=== PATIENT | female | born 2000 | race Caucasian/White ===

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

== ENCOUNTER 2018-01-05 01:51 | Emergency (ER) | payer OTHER ==
[2018-01-05 02:01] VITALS: BP 115/77; PULSE 102; RESP 20; TEMP 98.7
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
== END 2018-01-05 02:35 | disposition home or self-care (01) ==
LOC: EC 01:51
DX: R40.2412 Glasgow coma scale score 13-15, at arrival to emergency department (principal); F32.9 Major depressive disorder, single episode, unspecified; Z79.899 Other long term (current) drug therapy; Z88.8 Allergy status to other drugs, medicaments and biological substances; V47.5XXA Car driver injured in collision with fixed or stationary object in traffic accident, initial encounter; Y92.410 Unspecified street and highway as the place of occurrence of the external cause
CPT/HCPCS: 99284

== ENCOUNTER 2018-02-16 05:32 | Emergency (ER) | payer OTHER ==
[2018-02-16] MEDS ORDERED: ONDANSETRON 4 MG/2 ML VIAL IVP STA (06:23)
[2018-02-16] MEDS ORDERED: SODIUM CHLORIDE 0.9% 1,000 ML IV STA (06:23)
--- NOTE | 2018-02-16 06:30 | ED ---
General Adult HPI - General Chief complaint: Nausea/Vomiting/Diarrhea Stated complaint: VOMITING Time Seen by Provider: 02/16/18 05:59 Source: patient Mode of arrival: ambulatory Limitations: no limitations - History of Present Illness Initial comments: 17-year-old female presents to the ER today for evaluation of nausea, vomiting, sore throat and generalized body aches. Patient reports that for approximately 2 months she's been experiencing dysuria and has been taking [id number] Azo almost daily for her symptoms. She was evaluated by her primary care office and was advised that her dysuria was a urinary tract infection secondary to stress and that there is no indication for antibiotics. Patient has not followed up since that time approximately 2 months ago. Patient reports that for the past 3 days she hasn't been having much dysuria and has not taken any Azo. She states that her boyfriend has been having some fevers and body aches and yesterday developed a rash on his hands, feet and a sore throat. He has not sought any medical care. Patient reports that she was feeling okay when she went to bed, she woke up around or a.m. feeling generalized body aches, fever and had some nausea and vomiting. - Related Data Home Medications Medication Instructions Recorded Confirmed Escitalopram [Lexapro] 5 mg PO DAILY 01/05/18 01/05/18 Previous Rx's Medication Instructions Recorded Sulfamethox-Tmp 800-160Mg [Bactrim 1 tab PO Q12HR #14 tab 02/16/18 DS 800-160 mg] Allergies Allergy/AdvReac Type Severity Reaction Status Date / Time cyclobenzaprine HCl AdvReac HYPER Verified 02/16/18 05:45 [From Flexeril] Review of Systems ROS Statement: Those systems with pertinent positive or pertinent negative responses have been documented in the HPI. ROS Other: All systems not noted in ROS Statement are negative. Constitutional: Reports: fever, chills Eyes: Denies: vision change ENT: Reports: throat pain. Denies: ear pain Respiratory: Denies: cough, dyspnea Cardiovascular: Denies: chest pain Endocrine: Reports: fatigue Gastrointestinal: Reports: nausea, vomiting, diarrhea Genitourinary: Reports: dysuria, frequency Musculoskeletal: Denies: back pain Skin: Denies: rash Neurological: Denies: weakness Psychiatric: Denies: anxiety, depression Past Medical History Past Medical History: No Reported History Additional Past Medical History / Comment(s): hyperflexibility of the joints, previous shoulder dislocation History of Any Multi-Drug Resistant Organisms: None Reported Past Surgical History: No Surgical Hx Reported Additional Past Anesthesia/Blood Transfusion Reaction / Comment(s): no hx of blood transfusion Past Psychological History: ADD/ADHD, Bipolar, Depression, PTSD Smoking Status: Never smoker Past Alcohol Use History: None Reported Past Drug Use History: None Reported - Past Family History Mother Family Medical History: Thyroid Disorder Additional Family Medical History / Comment(s): mom with hypothyroid and hypoglycemia Sister(s) Family Medical History: Asthma General Exam Limitations: no limitations General appearance: alert Head exam: Present: atraumatic, normocephalic Eye exam: Present: normal appearance, PERRL ENT exam: Present: normal exam, TM's normal bilaterally Neck exam: Present: normal inspection. Absent: lymphadenopathy Respiratory exam: Present: normal lung sounds bilaterally. Absent: respiratory distress Cardiovascular Exam: Present: tachycardia GI/Abdominal exam: Present: soft. Absent: distended Rectal exam: Present: deferred Extremities exam: Present: full ROM, normal capillary refill. Absent: pedal edema Neurological exam: Present: alert, oriented X3 Psychiatric exam: Present: normal affect, normal mood Skin exam: Present: warm, dry. Absent: cyanosis Course Vital Signs 02/16/18 02/16/18 02/16/18 05:42 06:15 07:03 Temperature 99.5 F 100.6 F H Pulse Rate 111 H 89 Respiratory 18 17 Rate Blood Pressure 114/73 111/65 O2 Sat by Pulse 95 98 Oximetry Medical Decision Making - Medical Decision Making Patient was seen and evaluated, history was obtained from the patient Patient with frequent dysuria, treating Azo for 2 months duration Patient's significant other also apparently symptomatic vors-lfnz-yxu-mouth disease Patient woke this morning with nausea, vomiting, generalized body aches and fever Labs, medications were ordered Urinalysis reveals a significant urinary tract infection, IV Rocephin was ordered Results discussed with the patient who is agreeable to plan for discharge home with by mouth antibiotics I asked the patient if she had any concern for sexually transmitted infections. She denied any concerns. She denies any vaginal discharge. She declined a pelvic exam or sexual transmitted infections testing or treatment. I suspect that the patient's fever and tachycardia are secondary to the urinary tract infection, however she has had contact with a patient with pqqs-rjyb-zwl- mouth so she could also have a secondary viral syndrome though there is no rash to confirm [id number]-[id number]-[id number]-mouth. Patient will be provided a work note for today and was advised that if she develops or if she is contagious for as long as she has a fever or rash. All questions pertaining care were answered best my ability patient was discharged home in stable condition. - Lab Data Result diagrams: 02/16/18 06:10 02/16/18 06:10 Lab Results 02/16/18 02/16/18 02/16/18 Range/Units 06:00 06:00 06:10 WBC 10.8 (4.0-11.0) k/uL RBC 4.63 (3.80-5.40) m/uL Hgb 11.9 (11.4-16.0) gm/dL Hct 36.0 (34.0-46.0) % MCV 77.8 L (80.0-100.0) fL MCH 25.7 (25.0-35.0) pg MCHC 33.0 (31.0-37.0) g/dL RDW 13.2 (11.5-15.5) % Plt Count 265 (150-450) k/uL Neutrophils % 82 % Lymphocytes % 9 % Monocytes % 6 % Eosinophils % 1 % Basophils % 1 % Neutrophils # 8.9 H (1.3-7.7) k/uL Lymphocytes # 1.0 (1.0-4.8) k/uL Monocytes # 0.6 (0-1.0) k/uL Eosinophils # 0.1 (0-0.7) k/uL Basophils # 0.1 (0-0.2) k/uL Sodium (137-145) mmol/L Potassium (3.5-5.1) mmol/L Chloride (98-107) mmol/L Carbon Dioxide (22-30) mmol/L Anion Gap mmol/L BUN (7-17) mg/dL Creatinine (0.52-1.04) mg/dL Est GFR (CKD-EPI)AfAm (>60 ml/min/1.73 sqM) Est GFR (CKD-EPI)NonAf (>60 ml/min/1.73 sqM) Glucose (74-99) mg/dL Calcium (8.4-10.2) mg/dL Total Bilirubin (0.2-1.3) mg/dL AST (14-36) U/L ALT (9-52) U/L Alkaline Phosphatase (38-126) U/L Total Protein (6.3-8.2) g/dL Albumin (3.5-5.0) g/dL Urine Color Yellow Urine Appearance Cloudy H (Clear) Urine pH 5.5 (5.0-8.0) Ur Specific [place] 1.013 (1.001-1.035) Urine Protein Trace H (Negative) Urine Glucose (UA) Negative (Negative) Urine Ketones Negative (Negative) Urine Blood Trace H (Negative) Urine Nitrite Positive H (Negative) Urine Bilirubin Negative (Negative) Urine Urobilinogen <2.0 (<2.0) mg/dL Ur Leukocyte Esterase Large H (Negative) Urine RBC 3 (0-5) /hpf Urine WBC >182 H (0-5) /hpf Urine WBC Clumps Moderate H (None) /hpf Ur Squamous Epith Cells 1 (0-4) /hpf Urine Bacteria Many H (None) /hpf Urine Mucus Rare H (None) /hpf Urine HCG, Qual Not Detected (Not Detectd) 02/16/18 Range/Units 06:10 WBC (4.0-11.0) k/uL RBC (3.80-5.40) m/uL Hgb (11.4-16.0) gm/dL Hct (34.0-46.0) % MCV (80.0-100.0) fL MCH (25.0-35.0) pg MCHC (31.0-37.0) g/dL RDW (11.5-15.5) % Plt Count (150-450) k/uL Neutrophils % % Lymphocytes % % Monocytes % % Eosinophils % % Basophils % % Neutrophils # (1.3-7.7) k/uL Lymphocytes # (1.0-4.8) k/uL Monocytes # (0-1.0) k/uL Eosinophils # (0-0.7) k/uL Basophils # (0-0.2) k/uL Sodium 141 (137-145) mmol/L Potassium 3.9 (3.5-5.1) mmol/L Chloride 110 H (98-107) mmol/L Carbon Dioxide 21 L (22-30) mmol/L Anion Gap 10 mmol/L BUN 8 (7-17) mg/dL Creatinine 0.73 (0.52-1.04) mg/dL Est GFR (CKD-EPI)AfAm >90 (>60 ml/min/1.73 sqM) Est GFR (CKD-EPI)NonAf >90 (>60 ml/min/1.73 sqM) Glucose 97 (74-99) mg/dL Calcium 9.4 (8.4-10.2) mg/dL Total Bilirubin 0.8 (0.2-1.3) mg/dL AST 26 (14-36) U/L ALT 38 (9-52) U/L Alkaline Phosphatase 78 (38-126) U/L Total Protein 7.5 (6.3-8.2) g/dL Albumin 4.4 (3.5-5.0) g/dL Urine Color Urine Appearance (Clear) Urine pH (5.0-8.0) Ur Specific [place] (1.001-1.035) Urine Protein (Negative) Urine Glucose (UA) (Negative) Urine Ketones (Negative) Urine Blood (Negative) Urine Nitrite (Negative) Urine Bilirubin (Negative) Urine Urobilinogen (<2.0) mg/dL Ur Leukocyte Esterase (Negative) Urine RBC (0-5) /hpf Urine WBC (0-5) /hpf Urine WBC Clumps (None) /hpf Ur Squamous Epith Cells (0-4) /hpf Urine Bacteria (None) /hpf Urine Mucus (None) /hpf Urine HCG, Qual (Not Detectd) Disposition Clinical Impression: UTI (urinary tract infection) Disposition: HOME SELF-CARE Condition: Good Instructions: Urinary Tract Infection in Women (ED), Acute Nausea and Vomiting (ED) Prescriptions: Sulfamethox-Tmp 800-160Mg [Bactrim DS 800-160 mg] 1 tab PO Q12HR #14 tab Is patient prescribed a controlled substance at d/c from ED?: No Referrals: Kevin Bautista MD [Primary Care Provider] - 1-2 days Time of Disposition: 07:27
[2018-02-16 06:35] LABS: Appearance,Urine Cloudy (Clear); Bacteria,Urine Many /hpf; Bilirubin,Urine Negative (Negative); Blood,Urine Trace (Negative); Color,Urine Yellow; Glucose,Urine (UA) Negative (Negative); Ketones,Urine Negative (Negative); Leukocyte Esterase,Urine Large (Negative); Mucus,Urine Rare /hpf; Nitrite,Urine Positive (Negative); PH, Urine 5.5 (5.0-8.0); Protein,Urine Trace (Negative); RBC,Urine 3 /hpf (0-5); Specific Gravity,Urine 1.013 (1.001-1.035); Squamous Epithelial Cell,Urine 1 /hpf (0-4); Urobilinogen,Urine <2.0 mg/dL (<2.0); WBC,Urine >182 /hpf (0-5)
[2018-02-16 06:36] LABS: Basophils # (A) 0.1 k/uL (0-0.2); Basophils % (A) 1 %; Eosinophils # (A) 0.1 k/uL (0-0.7); Eosinophils % (A) 1 %; HGB 11.9 gm/dL (11.4-16.0); Lymphocytes % (A) 9 %; MCH 25.7 pg (25.0-35.0); MCV 77.8 fL (80.0-100.0); Mean Platelet Volume 7.4; Monocytes # (A) 0.6 k/uL (0-1.0); Monocytes % (A) 6 %; Neutrophils # (A) 8.9 k/uL (1.3-7.7); Neutrophils % (A) 82 %; Platelet Count 265 k/uL (150-450); RBC 4.63 m/uL (3.80-5.40); RDW 13.2 % (11.5-15.5); WBC 10.8 k/uL (4.0-11.0)
[2018-02-16 06:47] LABS: ALT 38 U/L (9-52); AST 26 U/L (14-36); Albumin 4.4 g/dL (3.5-5.0); Alkaline Phosphatase 78 U/L (38-126); Anion Gap 10 mmol/L; Blood Urea Nitrogen 8 mg/dL (7-17); Calcium 9.4 mg/dL (8.4-10.2); Carbon Dioxide 21 mmol/L (22-30); Chloride 110 mmol/L (98-107); Glucose 97 mg/dL (74-99); Potassium 3.9 mmol/L (3.5-5.1); Sodium 141 mmol/L (137-145); Total Bilirubin 0.8 mg/dL (0.2-1.3); Total Protein 7.5 g/dL (6.3-8.2)
[2018-02-16 07:04] VITALS: PULSE 89
[2018-02-16] MEDS ORDERED: cefTRIAXone IN SWFI 1,000 MG/10 ML SYRINGE IVP STA (07:25)
[2018-02-16 08:07] VITALS: BP 104/59; RESP 16; TEMP 98.9
== END 2018-02-16 08:06 | disposition home or self-care (01) ==
LOC: EC 05:32
DX: N39.0 Urinary tract infection, site not specified (principal); R11.2 Nausea with vomiting, unspecified; F31.9 Bipolar disorder, unspecified; F90.9 Attention-deficit hyperactivity disorder, unspecified type; F43.10 Post-traumatic stress disorder, unspecified; Z79.899 Other long term (current) drug therapy; Z88.8 Allergy status to other drugs, medicaments and biological substances
CPT/HCPCS: 36415; 80053; 85025; 81001; 81025; 87086; 99284; 96374; 96375; 96361; J2405; J0696

== ENCOUNTER 2018-06-11 20:25 | Emergency (ER) | payer OTHER ==
[2018-06-11 21:10] VITALS: BP 117/77; PULSE 81; RESP 20; TEMP 98.4
[2018-06-11] MEDS ORDERED: KETOROLAC 30 MG/ML 1 ML VIAL IM STA (21:22)
--- NOTE | 2018-06-11 21:26 | ED ---
General Adult HPI - General Chief complaint: Back Pain/Injury Stated complaint: Back injury/neck pain [facility] Time Seen by Provider: 06/11/18 21:12 Source: patient, family, RN notes reviewed, old records reviewed Mode of arrival: ambulatory Limitations: no limitations - History of Present Illness Initial comments: 18-year-old female presenting for evaluation of low back pain. Patient has history of low back pain. She had an episode approximately one year ago where she developed low back pain with twisting injury. She was evaluated for this at an outside hospital. At that time she states that she will trouble moving her legs and they noted decreased rectal tone. She was sent to outside hospital for MRI and neurosurgical evaluation. She states that they did not do any surgery. She regained complete function of her legs. She reports pain but no trouble moving her legs today. She reports some pain shooting down both of her legs. No saddle anesthesia. No loss of bowel or bladder. No fever or chills. - Related Data Home Medications Medication Instructions Recorded Confirmed Escitalopram [Lexapro] 10 mg PO DAILY 06/11/18 06/11/18 Previous Rx's Medication Instructions Recorded Ibuprofen [Motrin] 600 mg PO Q8HR PRN #24 tab 06/11/18 Allergies Allergy/AdvReac Type Severity Reaction Status Date / Time cyclobenzaprine HCl AdvReac HYPER Verified 06/11/18 21:10 [From Flexeril] Review of Systems ROS Statement: Those systems with pertinent positive or pertinent negative responses have been documented in the HPI. ROS Other: All systems not noted in ROS Statement are negative. Past Medical History Past Medical History: No Reported History Additional Past Medical History / Comment(s): hyperflexibility of the joints, previous shoulder dislocation History of Any Multi-Drug Resistant Organisms: None Reported Past Surgical History: No Surgical Hx Reported Additional Past Anesthesia/Blood Transfusion Reaction / Comment(s): no hx of blood transfusion Past Psychological History: ADD/ADHD, Bipolar, Depression, PTSD Smoking Status: Never smoker Past Alcohol Use History: None Reported Past Drug Use History: None Reported - Past Family History Mother Family Medical History: Thyroid Disorder Additional Family Medical History / Comment(s): mom with hypothyroid and hypoglycemia Sister(s) Family Medical History: Asthma General Exam Limitations: no limitations General appearance: alert, in no apparent distress, appears intoxicated Head exam: Present: atraumatic, normocephalic Eye exam: Present: normal appearance, PERRL ENT exam: Present: normal exam Neck exam: Present: normal inspection, full ROM. Absent: tenderness, meningismus Respiratory exam: Present: normal lung sounds bilaterally. Absent: respiratory distress, wheezes Cardiovascular Exam: Present: regular rate, normal rhythm GI/Abdominal exam: Present: soft. Absent: distended, tenderness, guarding Rectal exam: Present: normal inspection, normal rectal tone Extremities exam: Present: normal inspection, normal capillary refill. Absent: pedal edema, calf tenderness Back exam: Present: normal inspection, full ROM, paraspinal tenderness, vertebral tenderness (Diaphoresis or tenderness. No associated spasm and tenderness of the paraspinal muscles.) Neurological exam: Present: alert, oriented X3, CN II-XII intact, normal gait, reflexes normal. Absent: motor sensory deficit Expanded Motor strength exam: RUE: 5, LUE: 5, RLE: 5, LLE: 5 DTR: Patellar (R): 2+, Patellar (L): 2+ Psychiatric exam: Present: normal affect, normal mood Skin exam: Present: warm, dry, intact. Absent: cyanosis, diaphoretic Course Vital Signs 06/11/18 21:04 Temperature 98.4 F Pulse Rate 81 Respiratory 20 Rate Blood Pressure 117/77 O2 Sat by Pulse 100 Oximetry Medical Decision Making - Medical Decision Making 18-year-old with back pain associated with movement. This was twisting injury. She doesn't have some midline tenderness on exam proximally L3-L4. Primarily paraspinal tenderness and spasm on exam. No alarming features on history or exam however the patient had previous injury to her back that required MRI and neurosurgical evaluation ultimately she had no surgery and required no intervention. At that time patient did have decreased rectal tone. The rectal tone is normal today, no saddle anesthesia, rales or residual was 0. Urinalysis is negative and she is able to urinate on command. She is given Toradol intramuscularly. X-rays obtained, there is no acute fracture dislocation in the lumbar spine - Lab Data Lab Results 06/11/18 06/11/18 Range/Units 21:29 21:29 Urine Color Yellow Urine Appearance Clear (Clear) Urine pH 5.5 (5.0-8.0) Ur Specific [place] 1.016 (1.001-1.035) Urine Protein Negative (Negative) Urine Glucose (UA) Negative (Negative) Urine Ketones Negative (Negative) Urine Blood Negative (Negative) Urine Nitrite Negative (Negative) Urine Bilirubin Negative (Negative) Urine Urobilinogen <2.0 (<2.0) mg/dL Ur Leukocyte Esterase Negative (Negative) Urine HCG, Qual Not Detected (Not Detectd) Disposition Clinical Impression: Mechanical back pain, Strain of lumbar region Disposition: HOME SELF-CARE Condition: Good Instructions: Acute Low Back Pain (ED) Prescriptions: Ibuprofen [Motrin] 600 mg PO Q8HR PRN #24 tab PRN Reason: Pain Is patient prescribed a controlled substance at d/c from ED?: No Referrals: Kevin Bautista MD [Primary Care Provider] - 1-2 days Time of Disposition: 22:27
[2018-06-11 21:49] LABS: Appearance,Urine Clear (Clear); Bilirubin,Urine Negative (Negative); Blood,Urine Negative (Negative); Color,Urine Yellow; Glucose,Urine (UA) Negative (Negative); Ketones,Urine Negative (Negative); Leukocyte Esterase,Urine Negative (Negative); Nitrite,Urine Negative (Negative); PH, Urine 5.5 (5.0-8.0); Protein,Urine Negative (Negative); Specific Gravity,Urine 1.016 (1.001-1.035); Urobilinogen,Urine <2.0 mg/dL (<2.0)
--- NOTE | 2018-06-11 22:31 | XR ---
EXAMINATION TYPE: XR lumbar spine 2 or 3V DATE OF EXAM: 06/11/2018 COMPARISON: NONE HISTORY: Low back pain TECHNIQUE: 3 views FINDINGS: Vertebra have normal spacing and alignment. Posterior elements are intact. Sacroiliac joint s appear normal. IMPRESSION: Normal lumbar spine.
== END 2018-06-11 22:42 | disposition home or self-care (01) ==
LOC: EC 20:25
DX: S39.012A Strain of muscle, fascia and tendon of lower back, initial encounter (principal); F32.9 Major depressive disorder, single episode, unspecified; F43.10 Post-traumatic stress disorder, unspecified; Z79.899 Other long term (current) drug therapy; Z88.8 Allergy status to other drugs, medicaments and biological substances; X50.1XXA Overexertion from prolonged static or awkward postures, initial encounter; Y92.69 Other specified industrial and construction area as the place of occurrence of the external cause; Y99.0 Civilian activity done for income or pay
CPT/HCPCS: 81003; 81025; 72100; 99284; 96372; J1885

== ENCOUNTER 2018-10-05 11:11 | Emergency (ER) | payer OTHER ==
[2018-10-05] MEDS ORDERED: ONDANSETRON ODT 8 MG TAB.RAPDIS PO STA (11:25)
[2018-10-05] MEDS ORDERED: diphenhydrAMINE 50 MG/ML 1 ML VIAL IVP STA (11:25)
[2018-10-05] MEDS ORDERED: SODIUM CHLORIDE 0.9% 500 ML 500 ML IV STA (11:25)
[2018-10-05] MEDS ORDERED: SODIUM CHLORIDE 0.9% 1,000 ML IV STA (11:25)
--- NOTE | 2018-10-05 11:41 | ED ---
Nausea/Vomiting/Diarrhea HPI - General Chief complaint: Nausea/Vomiting/Diarrhea Stated complaint: Abd Pain Time Seen by Provider: 10/05/18 11:21 Source: patient, RN notes reviewed Mode of arrival: ambulatory Limitations: no limitations - History of Present Illness Initial comments: This is a 18-year-old female presents emergency Department chief complaint of nausea vomiting diarrhea. Patient states started abruptly around midnight. Patient states has been persistent every hour. Patient denies any known fever or chills. Patient denies any chest pain, shortness breath, headache or dizziness. Patient states that she's had no contacts with some symptoms denies any chance no dysuria no hematuria. - Related Data Home Medications Medication Instructions Recorded Confirmed Ascorbic Acid [Vitamin C] 500 mg PO DAILY 10/05/18 10/05/18 Biotin 5 mg PO DAILY 10/05/18 10/05/18 Venlafaxine HCl ER [Effexor XR] 75 mg PO DAILY 10/05/18 10/05/18 Previous Rx's Medication Instructions Recorded Ondansetron Odt [Zofran Odt] 4 mg PO Q8HR PRN #10 tab 10/05/18 Allergies Allergy/AdvReac Type Severity Reaction Status Date / Time latex Allergy Rash/Hives Verified 10/05/18 11:58 cyclobenzaprine HCl AdvReac HYPER Verified 10/05/18 11:44 [From Flexeril] Review of Systems ROS Statement: Those systems with pertinent positive or pertinent negative responses have been documented in the HPI. ROS Other: All systems not noted in ROS Statement are negative. Past Medical History Past Medical History: No Reported History Additional Past Medical History / Comment(s): hyperflexibility of the joints, pr evious shoulder dislocation History of Any Multi-Drug Resistant Organisms: None Reported Past Surgical History: No Surgical Hx Reported Additional Past Anesthesia/Blood Transfusion Reaction / Comment(s): no hx of blood transfusion Past Psychological History: ADD/ADHD, Bipolar, Depression, PTSD Smoking Status: Never smoker Past Alcohol Use History: Occasional Past Drug Use History: None Reported - Past Family History Mother Family Medical History: Thyroid Disorder Additional Family Medical History / Comment(s): mom with hypothyroid and hyp oglycemia Sister(s) Family Medical History: Asthma General Exam Limitations: no limitations General appearance: alert, in no apparent distress Head exam: Present: atraumatic, normocephalic, normal inspection Eye exam: Present: normal appearance, PERRL, EOMI. Absent: scleral icterus, conjunctival injection, periorbital swelling ENT exam: Present: normal exam, mucous membranes moist Neck exam: Present: normal inspection. Absent: tenderness, meningismus, lymphadenopathy Respiratory exam: Present: normal lung sounds bilaterally. Absent: respiratory distress, wheezes, rales, rhonchi, stridor Cardiovascular Exam: Present: normal rhythm, tachycardia, normal heart sounds. Absent: systolic murmur, diastolic murmur, rubs, gallop, clicks GI/Abdominal exam: Present: soft, tenderness (Mild diffuse), normal bowel sounds. Absent: distended, guarding, rebound, rigid Back exam: Absent: CVA tenderness (R), CVA tenderness (L) Skin exam: Present: warm, dry, intact, normal color. Absent: rash Course Vital Signs 10/05/18 10/05/18 11:13 12:12 Temperature 95 F L 100.1 F H Pulse Rate 118 H Respiratory 20 Rate Blood Pressure 108/75 O2 Sat by Pulse 99 Oximetry Medical Decision Making - Medical Decision Making 18-year-old female was on for nausea vomiting diarrhea. Patient is improved after IV fluids and antiemetics. Patient has no localized abdominal pain. Patient updated on results. Patient comfortable with discharge. - Lab Data Result diagrams: 10/05/18 11:45 10/05/18 11:45 Lab Results 10/05/18 10/05/18 10/05/18 Range/Units 11:45 11:45 12:25 WBC 14.6 H (4.0-11.0) k/uL RBC 5.35 (3.80-5.40) m/uL Hgb 14.0 (11.4-16.0) gm/dL Hct 41.2 (34.0-46.0) % MCV 76.9 L (80.0-100.0) fL MCH 26.2 (25.0-35.0) pg MCHC 34.1 (31.0-37.0) g/dL RDW 13.9 (11.5-15.5) % Plt Count 300 (150-450) k/uL Neutrophils % 94 % Lymphocytes % 2 % Monocytes % 2 % Eosinophils % 1 % Basophils % 0 % Neutrophils # 13.7 H (1.3-7.7) k/uL Lymphocytes # 0.4 L (1.0-4.8) k/uL Monocytes # 0.3 (0-1.0) k/uL Eosinophils # 0.1 (0-0.7) k/uL Basophils # 0.0 (0-0.2) k/uL Sodium 140 (137-145) mmol/L Potassium 4.2 (3.5-5.1) mmol/L Chloride 107 (98-107) mmol/L Carbon Dioxide 21 L (22-30) mmol/L Anion Gap 12 mmol/L BUN 15 (7-17) mg/dL Creatinine 0.44 L (0.52-1.04) mg/dL Est GFR (CKD-EPI)AfAm >90 (>60 ml/min/1.73 sqM) Est GFR (CKD-EPI)NonAf >90 (>60 ml/min/1.73 sqM) Glucose 126 H (74-99) mg/dL Calcium 9.9 (8.4-10.2) mg/dL Total Bilirubin 1.0 (0.2-1.3) mg/dL AST 25 (14-36) U/L ALT 39 (9-52) U/L Alkaline Phosphatase 84 (38-126) U/L Total Protein 7.7 (6.3-8.2) g/dL Albumin 4.6 (3.5-5.0) g/dL Lipase 48 (23-300) U/L Urine Color Yellow Urine Appearance Cloudy H (Clear) Urine pH 7.0 (5.0-8.0) Ur Specific [place] 1.022 (1.001-1.035) Urine Protein Trace H (Negative) Urine Glucose (UA) Negative (Negative) Urine Ketones 1+ H (Negative) Urine Blood Negative (Negative) Urine Nitrite Negative (Negative) Urine Bilirubin Negative (Negative) Urine Urobilinogen <2.0 (<2.0) mg/dL Ur Leukocyte Esterase Large H (Negative) Urine RBC 1 (0-5) /hpf Urine WBC 8 H (0-5) /hpf Ur Squamous Epith Cells 4 (0-4) /hpf Urine Bacteria Rare H (None) /hpf Urine Mucus Occasional H (None) /hpf Urine HCG, Qual (Not Detectd) 10/05/18 Range/Units 12:25 WBC (4.0-11.0) k/uL RBC (3.80-5.40) m/uL Hgb (11.4-16.0) gm/dL Hct (34.0-46.0) % MCV (80.0-100.0) fL MCH (25.0-35.0) pg MCHC (31.0-37.0) g/dL RDW (11.5-15.5) % Plt Count (150-450) k/uL Neutrophils % % Lymphocytes % % Monocytes % % Eosinophils % % Basophils % % Neutrophils # (1.3-7.7) k/uL Lymphocytes # (1.0-4.8) k/uL Monocytes # (0-1.0) k/uL Eosinophils # (0-0.7) k/uL Basophils # (0-0.2) k/uL Sodium (137-145) mmol/L Potassium (3.5-5.1) mmol/L Chloride (98-107) mmol/L Carbon Dioxide (22-30) mmol/L Anion Gap mmol/L BUN (7-17) mg/dL Creatinine (0.52-1.04) mg/dL Est GFR (CKD-EPI)AfAm (>60 ml/min/1.73 sqM) Est GFR (CKD-EPI)NonAf (>60 ml/min/1.73 sqM) Glucose (74-99) mg/dL Calcium (8.4-10.2) mg/dL Total Bilirubin (0.2-1.3) mg/dL AST (14-36) U/L ALT (9-52) U/L Alkaline Phosphatase (38-126) U/L Total Protein (6.3-8.2) g/dL Albumin (3.5-5.0) g/dL Lipase (23-300) U/L Urine Color Urine Appearance (Clear) Urine pH (5.0-8.0) Ur Specific [place] (1.001-1.035) Urine Protein (Negative) Urine Glucose (UA) (Negative) Urine Ketones (Negative) Urine Blood (Negative) Urine Nitrite (Negative) Urine Bilirubin (Negative) Urine Urobilinogen (<2.0) mg/dL Ur Leukocyte Esterase (Negative) Urine RBC (0-5) /hpf Urine WBC (0-5) /hpf Ur Squamous Epith Cells (0-4) /hpf Urine Bacteria (None) /hpf Urine Mucus (None) /hpf Urine HCG, Qual Not Detected (Not Detectd) Disposition Clinical Impression: Gastroenteritis Disposition: HOME SELF-CARE Condition: Stable Instructions (If sedation given, give patient instructions): Gastroenteritis (ED) Additional Instructions: Please return to the Emergency Department if symptoms worsen or any other concerns. Prescriptions: Ondansetron Odt [Zofran Odt] 4 mg PO Q8HR PRN #10 tab PRN Reason: Nausea Is patient prescribed a controlled substance at d/c from ED?: No Referrals: Cheryle Banerjee MD [Primary Care Provider] - 1-2 days Time of Disposition: 13:00
[2018-10-05 12:03] LABS: Basophils % (A) 0 %; Eosinophils # (A) 0.1 k/uL (0-0.7); Eosinophils % (A) 1 %; HCT 41.2 % (34.0-46.0); Lymphocytes # (A) 0.4 k/uL (1.0-4.8); Lymphocytes % (A) 2 %; MCH 26.2 pg (25.0-35.0); MCHC 34.1 g/dL (31.0-37.0); MCV 76.9 fL (80.0-100.0); Mean Platelet Volume 7.9; Monocytes # (A) 0.3 k/uL (0-1.0); Monocytes % (A) 2 %; Neutrophils # (A) 13.7 k/uL (1.3-7.7); Neutrophils % (A) 94 %; Platelet Count 300 k/uL (150-450); RBC 5.35 m/uL (3.80-5.40); RDW 13.9 % (11.5-15.5); WBC 14.6 k/uL (4.0-11.0)
[2018-10-05] MEDS ORDERED: KETOROLAC 30 MG/ML 1 ML VIAL IVP STA (12:10)
[2018-10-05 12:16] LABS: ALT 39 U/L (9-52); AST 25 U/L (14-36); Albumin 4.6 g/dL (3.5-5.0); Alkaline Phosphatase 84 U/L (38-126); Anion Gap 12 mmol/L; Blood Urea Nitrogen 15 mg/dL (7-17); Calcium 9.9 mg/dL (8.4-10.2); Carbon Dioxide 21 mmol/L (22-30); Chloride 107 mmol/L (98-107); Glucose 126 mg/dL (74-99); Lipase 48 U/L (23-300); Potassium 4.2 mmol/L (3.5-5.1); Sodium 140 mmol/L (137-145); Total Protein 7.7 g/dL (6.3-8.2)
[2018-10-05 12:45] LABS: Appearance,Urine Cloudy (Clear); Bacteria,Urine Rare /hpf; Bilirubin,Urine Negative (Negative); Blood,Urine Negative (Negative); Color,Urine Yellow; Glucose,Urine (UA) Negative (Negative); Ketones,Urine 1+ (Negative); Leukocyte Esterase,Urine Large (Negative); Mucus,Urine Occasional /hpf; Nitrite,Urine Negative (Negative); Protein,Urine Trace (Negative); RBC,Urine 1 /hpf (0-5); Specific Gravity,Urine 1.022 (1.001-1.035); Squamous Epithelial Cell,Urine 4 /hpf (0-4); Urobilinogen,Urine <2.0 mg/dL (<2.0); WBC,Urine 8 /hpf (0-5)
[2018-10-05 13:27] VITALS: BP 124/67; PULSE 89; RESP 16; TEMP 99.9
== END 2018-10-05 13:26 | disposition home or self-care (01) ==
LOC: EC 11:11
DX: K52.9 Noninfective gastroenteritis and colitis, unspecified (principal); F31.9 Bipolar disorder, unspecified; F90.9 Attention-deficit hyperactivity disorder, unspecified type; F43.10 Post-traumatic stress disorder, unspecified; Z79.899 Other long term (current) drug therapy; Z88.8 Allergy status to other drugs, medicaments and biological substances; Z91.040 Latex allergy status
CPT/HCPCS: 36415; 80053; 83690; 85025; 81001; 81025; 99284; 96374; 96375; 96361 ×2; J1200; J1885

== ENCOUNTER 2018-10-15 18:08 | Emergency (ER) | payer OTHER ==
[2018-10-15 18:14] VITALS: RESP 18
[2018-10-15 18:42] LABS: Basophils # (A) 0.1 k/uL (0-0.2); Basophils % (A) 1 %; Eosinophils # (A) 0.2 k/uL (0-0.7); Eosinophils % (A) 2 %; HCT 42.8 % (34.0-46.0); HGB 14.2 gm/dL (11.4-16.0); Lymphocytes # (A) 2.8 k/uL (1.0-4.8); Lymphocytes % (A) 27 %; MCHC 33.2 g/dL (31.0-37.0); MCV 78.2 fL (80.0-100.0); Mean Platelet Volume 7.3; Monocytes # (A) 0.4 k/uL (0-1.0); Monocytes % (A) 4 %; Neutrophils # (A) 6.7 k/uL (1.3-7.7); Neutrophils % (A) 66 %; Platelet Count 322 k/uL (150-450); RBC 5.47 m/uL (3.80-5.40); RDW 13.1 % (11.5-15.5); WBC 10.1 k/uL (4.0-11.0)
[2018-10-15] MEDS ORDERED: SODIUM CHLORIDE 0.9% 1,000 ML IV ONE (18:47)
[2018-10-15 18:52] LABS: ALT 46 U/L (9-52); AST 27 U/L (14-36); Albumin 4.8 g/dL (3.5-5.0); Alkaline Phosphatase 88 U/L (38-126); Amylase 101 U/L (30-110); Anion Gap 11 mmol/L; Blood Urea Nitrogen 9 mg/dL (7-17); Calcium 9.7 mg/dL (8.4-10.2); Carbon Dioxide 24 mmol/L (22-30); Chloride 105 mmol/L (98-107); Glucose 101 mg/dL (74-99); Lipase 88 U/L (23-300); Potassium 3.9 mmol/L (3.5-5.1); Sodium 140 mmol/L (137-145); Total Bilirubin 0.5 mg/dL (0.2-1.3); Total Protein 7.8 g/dL (6.3-8.2)
--- NOTE | 2018-10-15 19:20 | ED ---
Abdominal Pain HPI - General Chief Complaint: Abdominal Pain Stated Complaint: abd pain Time Seen by Provider: 10/15/18 18:16 Source: patient Mode of arrival: ambulatory Limitations: no limitations - History of Present Illness Initial Comments: 18-year-old female presents today for chief complaint of right lower abdominal pain. Patient states that about 10 days ago she had nausea vomiting diarrhea. She states she had midline abdominal pain. At this time she states it subsided she states she has no longer had vomiting or diarrhea. Patient states that today she began experiencing right lower quadrant tenderness. She states she went to her primary care provider who recommended coming to the emergency room for rule out appendicitis. Patient states that she has increasing pain with pushing on the area patient denies any other alleviating or aggravating factors. She describes the pain as sharp coming and going in intensity. She denies radiation. Patient denies . Patient states she did begin bleeding vaginally today she states she started her menses and has not had a period since is 2014. Patient denies is being lower pelvic pain. she denies dysuria urgency frequency or vaginal discharge. Pt denies . Upon arrival patient appears well remaining review of system negative, patient denies any recent fever, chills, shortness of breath, chest pain, back pain, nausea or vomiting, numbness or tingling, dysuria or hematuria, constipation or diarrhea, headaches or visual changes, or any other complaints. - Related Data Home Medications Medication Instructions Recorded Confirmed Ascorbic Acid [Vitamin C] 500 mg PO DAILY 10/05/18 10/05/18 Biotin 5 mg PO DAILY 10/05/18 10/05/18 Venlafaxine HCl ER [Effexor XR] 75 mg PO DAILY 10/05/18 10/05/18 Previous Rx's Medication Instructions Recorded Ondansetron Odt [Zofran Odt] 4 mg PO Q8HR PRN #10 tab 10/05/18 Allergies Allergy/AdvReac Type Severity Reaction Status Date / Time latex Allergy Rash/Hives Verified 10/15/18 18:14 cyclobenzaprine HCl AdvReac HYPER Verified 10/15/18 18:14 [From Flexeril] Review of Systems ROS Statement: Those systems with pertinent positive or pertinent negative responses have been documented in the HPI. ROS Other: All systems not noted in ROS Statement are negative. Past Medical History Past Medical History: No Reported History Additional Past Medical History / Comment(s): hyperflexibility of the joints, previous shoulder dislocation History of Any Multi-Drug Resistant Organisms: None Reported Past Surgical History: No Surgical Hx Reported Additional Past Anesthesia/Blood Transfusion Reaction / Comment(s): no hx of blood transfusion Past Psychological History: ADD/ADHD, Bipolar, Depression, PTSD Smoking Status: Never smoker Past Alcohol Use History: Occasional Past Drug Use History: None Reported - Past Family History Mother Family Medical History: Thyroid Disorder Additional Family Medical History / Comment(s): mom with hypothyroid and hypoglycemia Sister(s) Family Medical History: Asthma General Exam - General Exam Comments Initial Comments: General: The patient is awake and alert, in no distress, and does not appear acutely ill. Eye: Pupils are equal, round and reactive to light, extra-ocular movements are intact. No nystagmus. There is normal conjunctiva bilaterally. No signs of icterus. Ears, nose, mouth and throat: There are moist mucous membranes and no oral lesions. Neck: The neck is supple, there is no tenderness or JVD. Cardiovascular: There is a regular rate and rhythm. No murmur, rub or gallop is appreciated. Respiratory: Lungs are clear to auscultation, respirations are non-labored, breath sounds are equal. No wheezes, stridor, rales, or rhonchi. Gastrointestinal: Soft, non-distended, tender to palpation of the right lower quadrant no right lower pelvic pain abdomen without masses or organomegaly noted. No rigidity or guarding. There is no rebound or guarding present. No CVA tenderness. Bowel sounds are unremarkable. Musculoskeletal: Normal ROM, no tenderness. Strength 5/5. Sensation intact. Pulses equal bilaterally 2+. Neurological: A&O x 3. CN II-XII intact, There are no obvious motor or sensory deficits. Coordination appears grossly intact. Speech is normal. Skin: Skin is warm and dry and no rashes or lesions are noted. Psychiatric: Cooperative, appropriate mood & affect, normal judgment. Limitations: no limitations Course Vital Signs 10/15/18 10/15/18 18:12 21:17 Temperature 98.8 F 98.0 F Pulse Rate 103 H 82 Respiratory 18 18 Rate Blood Pressure 120/84 113/87 O2 Sat by Pulse 98 99 Oximetry Medical Decision Making - Medical Decision Making 18-year-old febrile presents today for chief complaint of right lower abdominal pain. Patient has no lower pelvic pain. There is pain to palpation of the RLQ. No rebound tenderness or guarding. Patient appears comfortable no signs of acute distress. Patient laboratory studies revealed a leukocytosis. BUN and creatinine within normal limits. Patient currently menstruating. HCG (-). Urinalysis will be cultured. Pt denies symptoms. CT revealed no acute intraabdominal process, possible mesenteric adenitis which was on different diagnosis for patient's cause of pain I feel this clinically correlates given patient recent viral illness. Pt provider IVF in ER. Appears well. Upon reevaluation patient states pain has improved. I feel pt is stable for discharge. Patient is agreeable discharge as well as return parameters an outpatient primary care follow-up. Patient discharged appearing well. Prior to patient's discharge case was discussed with attending provider Dr. Patel - Lab Data Result diagrams: 10/15/18 18:38 10/15/18 18:38 Lab Results 10/15/18 10/15/18 10/15/18 Range/Units 18:38 18:38 19:15 WBC 10.1 (4.0-11.0) k/uL RBC 5.47 H (3.80-5.40) m/uL Hgb 14.2 (11.4-16.0) gm/dL Hct 42.8 (34.0-46.0) % MCV 78.2 L (80.0-100.0) fL MCH 26.0 (25.0-35.0) pg MCHC 33.2 (31.0-37.0) g/dL RDW 13.1 (11.5-15.5) % Plt Count 322 (150-450) k/uL Neutrophils % 66 % Lymphocytes % 27 % Monocytes % 4 % Eosinophils % 2 % Basophils % 1 % Neutrophils # 6.7 (1.3-7.7) k/uL Lymphocytes # 2.8 (1.0-4.8) k/uL Monocytes # 0.4 (0-1.0) k/uL Eosinophils # 0.2 (0-0.7) k/uL Basophils # 0.1 (0-0.2) k/uL Sodium 140 (137-145) mmol/L Potassium 3.9 (3.5-5.1) mmol/L Chloride 105 (98-107) mmol/L Carbon Dioxide 24 (22-30) mmol/L Anion Gap 11 mmol/L BUN 9 (7-17) mg/dL Creatinine 0.50 L (0.52-1.04) mg/dL Est GFR (CKD-EPI)AfAm >90 (>60 ml/min/1.73 sqM) Est GFR (CKD-EPI)NonAf >90 (>60 ml/min/1.73 sqM) Glucose 101 H (74-99) mg/dL Calcium 9.7 (8.4-10.2) mg/dL Total Bilirubin 0.5 (0.2-1.3) mg/dL AST 27 (14-36) U/L ALT 46 (9-52) U/L Alkaline Phosphatase 88 (38-126) U/L Total Protein 7.8 (6.3-8.2) g/dL Albumin 4.8 (3.5-5.0) g/dL Amylase 101 (30-110) U/L Lipase 88 (23-300) U/L Urine Color Urine Appearance (Clear) Urine pH (5.0-8.0) Ur Specific [place] (1.001-1.035) Urine Protein (Negative) Urine Glucose (UA) (Negative) Urine Ketones (Negative) Urine Blood (Negative) Urine Nitrite (Negative) Urine Bilirubin (Negative) Urine Urobilinogen (<2.0) mg/dL Ur Leukocyte Esterase (Negative) Urine RBC (0-5) /hpf Urine WBC (0-5) /hpf Ur Squamous Epith Cells (0-4) /hpf Urine Mucus (None) /hpf Urine HCG, Qual Not Detected (Not Detectd) 10/15/18 Range/Units 19:15 WBC (4.0-11.0) k/uL RBC (3.80-5.40) m/uL Hgb (11.4-16.0) gm/dL Hct (34.0-46.0) % MCV (80.0-100.0) fL MCH (25.0-35.0) pg MCHC (31.0-37.0) g/dL RDW (11.5-15.5) % Plt Count (150-450) k/uL Neutrophils % % Lymphocytes % % Monocytes % % Eosinophils % % Basophils % % Neutrophils # (1.3-7.7) k/uL Lymphocytes # (1.0-4.8) k/uL Monocytes # (0-1.0) k/uL Eosinophils # (0-0.7) k/uL Basophils # (0-0.2) k/uL Sodium (137-145) mmol/L Potassium (3.5-5.1) mmol/L Chloride (98-107) mmol/L Carbon Dioxide (22-30) mmol/L Anion Gap mmol/L BUN (7-17) mg/dL Creatinine (0.52-1.04) mg/dL Est GFR (CKD-EPI)AfAm (>60 ml/min/1.73 sqM) Est GFR (CKD-EPI)NonAf (>60 ml/min/1.73 sqM) Glucose (74-99) mg/dL Calcium (8.4-10.2) mg/dL Total Bilirubin (0.2-1.3) mg/dL AST (14-36) U/L ALT (9-52) U/L Alkaline Phosphatase (38-126) U/L Total Protein (6.3-8.2) g/dL Albumin (3.5-5.0) g/dL Amylase (30-110) U/L Lipase (23-300) U/L Urine Color Yellow Urine Appearance Clear (Clear) Urine pH 6.0 (5.0-8.0) Ur Specific [place] 1.024 (1.001-1.035) Urine Protein Trace H (Negative) Urine Glucose (UA) Negative (Negative) Urine Ketones Trace H (Negative) Urine Blood Large H (Negative) Urine Nitrite Negative (Negative) Urine Bilirubin Negative (Negative) Urine Urobilinogen <2.0 (<2.0) mg/dL Ur Leukocyte Esterase Moderate H (Negative) Urine RBC 9 H (0-5) /hpf Urine WBC 6 H (0-5) /hpf Ur Squamous Epith Cells 3 (0-4) /hpf Urine Mucus Occasional H (None) /hpf Urine HCG, Qual (Not Detectd) Disposition Clinical Impression: Abdominal pain Disposition: HOME SELF-CARE Condition: Good Instructions (If sedation given, give patient instructions): Abdominal Pain (ED) Additional Instructions: Please use medication as discussed. Please follow-up with family doctor in the next 2 days. Please return to emergency room if the symptoms increase or worsen or for any other concerns. Is patient prescribed a controlled substance at d/c from ED?: No Referrals: Cheryle Banerjee MD [Primary Care Provider] - 1-2 days Time of Disposition: 20:22
[2018-10-15 19:33] LABS: Appearance,Urine Clear (Clear); Bilirubin,Urine Negative (Negative); Blood,Urine Large (Negative); Color,Urine Yellow; Glucose,Urine (UA) Negative (Negative); Ketones,Urine Trace (Negative); Leukocyte Esterase,Urine Moderate (Negative); Mucus,Urine Occasional /hpf; Nitrite,Urine Negative (Negative); Protein,Urine Trace (Negative); RBC,Urine 9 /hpf (0-5); Specific Gravity,Urine 1.024 (1.001-1.035); Squamous Epithelial Cell,Urine 3 /hpf (0-4); Urobilinogen,Urine <2.0 mg/dL (<2.0); WBC,Urine 6 /hpf (0-5)
--- NOTE | 2018-10-15 20:56 | CT ---
EXAMINATION TYPE: CT abdomen pelvis w con DATE OF EXAM: 10/15/2018 HISTORY: RLQ pain with vomiting, diarrhea and fever CT DLP: 547.3mGycm Automated Exposure Control for Dose Reduction was Utilized. CONTRAST: CT scan of the abdomen and pelvis is performed without oral but with IV Contrast, patient injected wi th 100 mL of Isovue 300. COMPARISON: CT abdomen and pelvis October 13, 2011 FINDINGS: LUNG BASES: No significant abnormality is appreciated. LIVER/GB: No significant abnormality is appreciated. PANCREAS: No significant abnormality is seen. SPLEEN: No significant abnormality is seen. ADRENALS: No significant abnormality is seen. KIDNEYS: No significant abnormality is seen. BOWEL: Evaluation of bowel is suboptimal secondary to lack of enteric contrast. No suspicious smaller large bowel dilatation is seen. Appendix felt within normal limits extending medially from base of c ecum in the right upper pelvis coronal image 31 for reference. No surrounding inflammatory changes ar e identified. UTERUS/ADNEXA: Retroverted uterus is present. LYMPH NODES: No greater than 1cm abdominal or pelvic lymph nodes are appreciated. Prominent but subce ntimeter lymph nodes throughout the mesentery are identified. OSSEOUS STRUCTURES: No significant abnormality is seen. OTHER: No significant additional abnormality is seen. IMPRESSION: No CT evidence for acute appendicitis. Possible mesenteric adenitis, correlate clinically . No bowel obstruction. No acute finding otherwise present.
[2018-10-15 21:18] VITALS: BP 113/87; PULSE 82; TEMP 98
== END 2018-10-15 21:29 | disposition home or self-care (01) ==
LOC: EC 18:08
DX: R10.31 Right lower quadrant pain (principal); R11.2 Nausea with vomiting, unspecified; R19.7 Diarrhea, unspecified; F90.9 Attention-deficit hyperactivity disorder, unspecified type; F31.9 Bipolar disorder, unspecified; F43.10 Post-traumatic stress disorder, unspecified; Z79.899 Other long term (current) drug therapy; Z88.8 Allergy status to other drugs, medicaments and biological substances; Z91.040 Latex allergy status
CPT/HCPCS: 36415; 80053; 82150; 83690; 85025; 81001; 81025; 74177; 99284; 96360; 96361; Q9967

== ENCOUNTER → 2018-10-23 | Outpatient (CLI) | payer OTHER ==
--- NOTE | 2018-10-23 11:23 | US ---
EXAMINATION TYPE: US abdomen complete DATE OF EXAM: 10/23/2018 COMPARISON: CT 2019 CLINICAL HISTORY: R10.9 Rt side abdominal pain. Intermittent right sided abdomen pain x 2 weeks, naus ea EXAM MEASUREMENTS: Liver Length: 13.1 cm Gallbladder Wall: 0.2 cm CBD: 0.3 cm Spleen: 8.7 cm Right Kidney: 10.1 x 3.4 x 4.8 cm Left Kidney: 9.5 x 4.9 x 3.8 cm Pancreas: visualized portions wnl, limited by overlying midline bowel gas Liver: wnl Gallbladder: wnl Evidence for sonographic Guerra's sign: no CBD: wnl Spleen: wnl Right Kidney: wnl Left Kidney: wnl Upper IVC: wnl Abd Aorta: wnl The liver is homogenous. The intrahepatic portion of the IVC and proximal abdominal aorta are within normal limits. There is no evidence of cholelithiasis. Common bile duct is unremarkable. The visu alized portions of the pancreas are homogenous. The spleen is unremarkable. Kidneys are symmetric a nd free of hydronephrosis. No renal lesions are seen. IMPRESSION: 1. No distinct abnormality seen.
--- NOTE | 2018-10-23 11:26 | US ---
EXAMINATION TYPE: US pelvic complete DATE OF EXAM: 10/23/2018 COMPARISON: CT 2019 CLINICAL HISTORY: R10.9 Rt side abdominal pain. Intermittent right sided abdomen pain x 2 weeks, grav davina 0,patient on depo shot TECHNIQUE: . Transabdominal sonographic images of the pelvis were acquired. Date of LMP: 2013 EXAM MEASUREMENTS: Uterus: 5.9 x 3.4 x 4.3 cm Endometrial Stripe: 0.4 cm Right Ovary: 2.7 x 1.7 x 1.8 cm Left Ovary: 2.3 x 1.2 x 1.4 cm 1. Uterus: anteverted 2. Endometrium: wnl 3. Right Ovary: wnl 4. Left Ovary: wnl 5. Bilateral Adnexa: wnl 6. Posterior cul-de-sac: wnl IMPRESSION: No distinct abnormality seen at this time.
== END | disposition home or self-care (01) ==
LOC: RADUSWWP 10:26
PROVIDERS: ATTEND Internal Medicine
DX: R10.9 Unspecified abdominal pain (principal)
CPT/HCPCS: 76700; 76856

== ENCOUNTER 2018-11-09 20:23 | Emergency (ER) | payer OTHER ==
[2018-11-09 20:44] VITALS: TEMP 98.2
[2018-11-09] MEDS ORDERED: SODIUM CHLORIDE 0.9% 500 ML 500 ML IV STA (21:29)
[2018-11-09] MEDS ORDERED: MECLIZINE 12.5 MG TAB PO STA (21:29)
[2018-11-09 22:24] LABS: Appearance,Urine Cloudy (Clear); Bacteria,Urine Rare /hpf; Bilirubin,Urine Negative (Negative); Blood,Urine Negative (Negative); Color,Urine Light Yellow; Glucose,Urine (UA) Negative (Negative); Ketones,Urine Negative (Negative); Leukocyte Esterase,Urine Large (Negative); Mucus,Urine Rare /hpf; Nitrite,Urine Negative (Negative); Protein,Urine Negative (Negative); RBC,Urine 1 /hpf (0-5); Specific Gravity,Urine 1.017 (1.001-1.035); Squamous Epithelial Cell,Urine 9 /hpf (0-4); Urobilinogen,Urine <2.0 mg/dL (<2.0)
[2018-11-09 22:41] LABS: Basophils # (A) 0.1 k/uL (0-0.2); Basophils % (A) 1 %; Eosinophils # (A) 0.1 k/uL (0-0.7); Eosinophils % (A) 1 %; HCT 42.9 % (34.0-46.0); HGB 13.8 gm/dL (11.4-16.0); Lymphocytes # (A) 3.9 k/uL (1.0-4.8); Lymphocytes % (A) 35 %; MCH 25.5 pg (25.0-35.0); MCHC 32.1 g/dL (31.0-37.0); MCV 79.6 fL (80.0-100.0); Mean Platelet Volume 7.8; Monocytes # (A) 0.6 k/uL (0-1.0); Monocytes % (A) 5 %; Neutrophils # (A) 6.2 k/uL (1.3-7.7); Neutrophils % (A) 55 %; Platelet Count 349 k/uL (150-450); RBC 5.39 m/uL (3.80-5.40); RDW 13.7 % (11.5-15.5); WBC 11.2 k/uL (4.0-11.0)
[2018-11-09 22:51] LABS: ALT 48 U/L (9-52); AST 36 U/L (14-36); Albumin 5.3 g/dL (3.5-5.0); Alkaline Phosphatase 98 U/L (38-126); Anion Gap 12 mmol/L; Blood Urea Nitrogen 10 mg/dL (7-17); Calcium 10.4 mg/dL (8.4-10.2); Carbon Dioxide 22 mmol/L (22-30); Chloride 109 mmol/L (98-107); Glucose 95 mg/dL (74-99); Potassium 4.5 mmol/L (3.5-5.1); Sodium 143 mmol/L (137-145); Total Bilirubin 0.4 mg/dL (0.2-1.3); Total Protein 8.7 g/dL (6.3-8.2)
--- NOTE | 2018-11-09 23:19 | XR ---
EXAM: XR Chest, 2 Views CLINICAL HISTORY: fall TECHNIQUE: Frontal and lateral views of the chest. COMPARISON: 02/21/17 FINDINGS: Lungs: Unremarkable. No consolidation. Pleural space: Unremarkable. No pneumothorax. Heart: Unremarkable. No cardiomegaly. Mediastinum: Unremarkable. Bones/joints: Unremarkable. IMPRESSION: No acute findings or change
--- NOTE | 2018-11-09 23:23 | CT ---
EXAM: CT Head Without Intravenous Contrast CLINICAL HISTORY: dizziness, syncope TECHNIQUE: Axial computed tomography images of the head/brain without intravenous contrast. CTDI is 53.57 mGy and DLP is 1203.6 mGy-cm. This CT exam was performed using one or more of the following dose reduction techniques: automated exposure control, adjustment of the mA and/or kV according to patient size, and/or use of iterative reconstruction technique. Coronal and sagittal reconstructions are performed COMPARISON: No relevant prior studies available. FINDINGS: Brain: Unremarkable. No hemorrhage. No significant white matter disease. No edema. Ventricles: Unremarkable. No ventriculomegaly. Bones/joints: Unremarkable. No acute fracture. Soft tissues: Unremarkable. Sinuses: Unremarkable as visualized. No acute sinusitis. Mastoid air cells: Unremarkable as visualized. No mastoid effusion. IMPRESSION: Normal head/brain CT. EXAM: CT Cervical Spine Without Intravenous Contrast CLINICAL HISTORY: dizziness, syncope TECHNIQUE: Axial computed tomography images of the cervical spine without intravenous contrast. CTDI is 53.57 mGy and DLP is 1203.6 mGy-cm. This CT exam was performed using one or more of the following dose reduction techniques: automated exposure control, adjustment of the mA and/or kV according to patient size, and/or use of iterative reconstruction technique. Coronal and sagittal reconstructions are performed COMPARISON: No relevant prior studies available. FINDINGS: Vertebrae: Mild cervical kyphosis, likely related to positioning versus muscle spasm No acute fracture. Discs/spinal canal/neural foramina: No acute findings. No spinal canal stenosis. Soft tissues: Unremarkable. IMPRESSION: No acute findings.
--- NOTE | 2018-11-10 00:08 | ED ---
General Adult HPI - General Source: patient, family, RN notes reviewed, old records reviewed Mode of arrival: ambulatory Limitations: no limitations <Ruperto Nugent - Last Filed: 11/10/18 00:06> <Erika Velasquez - Last Filed: 11/10/18 00:31> - General Chief complaint: Dizziness Stated complaint: Abd Pain Time Seen by Provider: 11/09/18 20:57 - History of Present Illness Initial comments: 18-year-old female patient with past history of chronic abdominal pain presents to ED for sensation of dizziness. Patient states that when she shakes her head from side to side she has dizziness. Patient also said that she had some paresthesias in her fingertips. She states that while she is feeling dizzy she had some minor shortness of breath. Patient states this has resolved. Patient denies any current chest pain or shortness of breath. Patient denies any headache or changes in vision. Patient denies all other complaints. Systemic: Pt denies fatigue, myalgia, fever/chills, rash. Pt denies weakness, night sweats, weight loss. Neuro: Pt denies headache, visual disturbances, syncope. HEENT: Pt denies ocular discharge or irritation, otalgia, rhinorrhea, pharyngitis or notable lymphadenopathy. Cardiopulmonary: Pt denies chest pain, SOB, heart palpitations, dyspnea on exertion. Abdominal/GI: Pt denies abdominal pain, n/v/d. : Pt denies dysuria, burning w/ urination, frequency/urgency. Denies new onset urinary or bowel incontinence. MSK: Pt denies myalgia, loss of strength or function in extremities. Neuro: Pt denies new onset weakness, paresthesias. (Ruperto Nugent) - Related Data Home Medications Medication Instructions Recorded Confirmed Ascorbic Acid [Vitamin C] 500 mg PO DAILY 10/05/18 10/05/18 Biotin 5 mg PO DAILY 10/05/18 10/05/18 Venlafaxine HCl ER [Effexor XR] 75 mg PO DAILY 10/05/18 10/05/18 Previous Rx's Medication Instructions Recorded Ondansetron Odt [Zofran Odt] 4 mg PO Q8HR PRN #10 tab 10/05/18 Allergies Allergy/AdvReac Type Severity Reaction Status Date / Time latex Allergy Rash/Hives Verified 11/09/18 20:44 cyclobenzaprine HCl AdvReac HYPER Verified 11/09/18 20:44 [From Flexeril] Review of Systems ROS Other: All systems not noted in ROS Statement are negative. <Ruperto Nugent - Last Filed: 11/10/18 00:06> ROS Other: All systems not noted in ROS Statement are negative. <RonErika P - Last Filed: 11/10/18 00:31> ROS Statement: Those systems with pertinent positive or pertinent negative responses have been documented in the HPI. Past Medical History Past Medical History: No Reported History Additional Past Medical History / Comment(s): hyperflexibility of the joints, previous shoulder dislocation History of Any Multi-Drug Resistant Organisms: None Reported Past Surgical History: No Surgical Hx Reported Additional Past Anesthesia/Blood Transfusion Reaction / Comment(s): no hx of blood transfusion Past Psychological History: ADD/ADHD, Bipolar, Depression, PTSD Smoking Status: Never smoker Past Alcohol Use History: Occasional Past Drug Use History: None Reported - Past Family History Mother Family Medical History: Thyroid Disorder Additional Family Medical History / Comment(s): mom with hypothyroid and hypoglycemia Sister(s) Family Medical History: Asthma <EliciaalvarezRuperto - Last Filed: 11/10/18 00:06> General Exam Limitations: no limitations <Ruperto Nugent - Last Filed: 11/10/18 00:06> - General Exam Comments Initial Comments: Constitutional: NAD, AOX3, Pt has pleasant affect. HEENT: NC/AT, trachea midline, neck supple, no lymphadenopathy. Posterior pharynx non erythematous, without exudates. External ears appear normal, without discharge. Mucous membranes moist. Eyes PERRLA, EOM intact. There is no scleral icterus. No pallor noted. Cardiopulmonary: RRR, no murmurs, rubs or gallops, no JVD noted. Lungs CTAB in anterior and posterior koenig. No peripheral edema. Abdominal exam: Abdomen soft and non-distended. Abdomen non-tender to palpation in all 4 quadrants. Bowel sounds active in LLQ. No hepatosplenomegaly. No ecchymosis Neuro: CN II-XII intact. No nuchal rigidity. No focal deficit, no facial droop. No cervical spinal tenderness. MSK: No posterior calf tenderness bilaterally, homans sign negative bilaterally. Posterior tibialis and radial pulse +2 bilaterally. Sensation intact in upper and lower extremities. Full active ROM in upper and lower extremities, 5/5 stregnth. (Ruperto Nugent) Course Vital Signs 11/09/18 20:39 Temperature 98.2 F Pulse Rate 92 Respiratory 16 Rate Blood Pressure 123/88 O2 Sat by Pulse 96 Oximetry Medical Decision Making - Lab Data Result diagrams: 11/09/18 22:15 11/09/18 22:15 - EKG Data -: EKG Interpreted by Me (and dr velasquez) <Ruperto Nugent - Last Filed: 11/10/18 00:06> - Lab Data Result diagrams: 11/09/18 22:15 11/09/18 22:15 <Erika Velasquez - Last Filed: 11/10/18 00:31> - Medical Decision Making 18-year-old female patient with past history of chronic abdominal pain presents to ED for sensation of dizziness. Patient states that when she shakes her head from side to side she has dizziness. Patient also said that she had some paresthesias in her fingertips. She states that while she is feeling dizzy she had some minor shortness of breath. Patient states this has resolved. Patient denies any current chest pain or shortness of breath. Patient denies any headache or changes in vision. Patient denies all other complaints. Pt VSS, afebrile. Physical exam displayed: CN II-XII intact. No nuchal rigidity. No focal deficit, no facial droop. No cervical spinal tenderness. Laboratory investigations revealed non-impressive CBC, CMP, UA. HCG negative. EKG not concerning for acute pathology. CT brain and C-spine do not display any acute pathology. Chest x-ray did not display any acute process. Patient will be discharged, will be given neurology follow-up. Patient return to ER if condition worsens. Case discussed with Dr. Velasqeuz. (Ruperto Nugent) I was available for consultation in the emergency department. The history and physical exam were done by the midlevel provider. I was consulted for this patient's care. I reviewed the case with the midlevel provider and based on their presentation of the patient, I agree with the assessment, medical decision making and plan of care as documented. Chart was dictated using [employer] dictation software. Attempts were made to correct any dictation errors however some typographical errors may persist. ( Erika Velasquez) - Lab Data Lab Results 11/09/18 11/09/18 11/09/18 Range/Units 21:35 21:35 22:15 WBC 11.2 H (4.0-11.0) k/uL RBC 5.39 (3.80-5.40) m/uL Hgb 13.8 (11.4-16.0) gm/dL Hct 42.9 (34.0-46.0) % MCV 79.6 L (80.0-100.0) fL MCH 25.5 (25.0-35.0) pg MCHC 32.1 (31.0-37.0) g/dL RDW 13.7 (11.5-15.5) % Plt Count 349 (150-450) k/uL Neutrophils % 55 % Lymphocytes % 35 % Monocytes % 5 % Eosinophils % 1 % Basophils % 1 % Neutrophils # 6.2 (1.3-7.7) k/uL Lymphocytes # 3.9 (1.0-4.8) k/uL Monocytes # 0.6 (0-1.0) k/uL Eosinophils # 0.1 (0-0.7) k/uL Basophils # 0.1 (0-0.2) k/uL Sodium (137-145) mmol/L Potassium (3.5-5.1) mmol/L Chloride (98-107) mmol/L Carbon Dioxide (22-30) mmol/L Anion Gap mmol/L BUN (7-17) mg/dL Creatinine (0.52-1.04) mg/dL Est GFR (CKD-EPI)AfAm (>60 ml/min/1.73 sqM) Est GFR (CKD-EPI)NonAf (>60 ml/min/1.73 sqM) Glucose (74-99) mg/dL Calcium (8.4-10.2) mg/dL Total Bilirubin (0.2-1.3) mg/dL AST (14-36) U/L ALT (9-52) U/L Alkaline Phosphatase (38-126) U/L Total Protein (6.3-8.2) g/dL Albumin (3.5-5.0) g/dL Urine Color Light Yellow Urine Appearance Cloudy H (Clear) Urine pH 7.0 (5.0-8.0) Ur Specific [place] 1.017 (1.001-1.035) Urine Protein Negative (Negative) Urine Glucose (UA) Negative (Negative) Urine Ketones Negative (Negative) Urine Blood Negative (Negative) Urine Nitrite Negative (Negative) Urine Bilirubin Negative (Negative) Urine Urobilinogen <2.0 (<2.0) mg/dL Ur Leukocyte Esterase Large H (Negative) Urine RBC 1 (0-5) /hpf Urine WBC 8 H (0-5) /hpf Ur Squamous Epith Cells 9 H (0-4) /hpf Urine Bacteria Rare H (None) /hpf Urine Mucus Rare H (None) /hpf Urine HCG, Qual Not Detected (Not Detectd) 11/09/18 Range/Units 22:15 WBC (4.0-11.0) k/uL RBC (3.80-5.40) m/uL Hgb (11.4-16.0) gm/dL Hct (34.0-46.0) % MCV (80.0-100.0) fL MCH (25.0-35.0) pg MCHC (31.0-37.0) g/dL RDW (11.5-15.5) % Plt Count (150-450) k/uL Neutrophils % % Lymphocytes % % Monocytes % % Eosinophils % % Basophils % % Neutrophils # (1.3-7.7) k/uL Lymphocytes # (1.0-4.8) k/uL Monocytes # (0-1.0) k/uL Eosinophils # (0-0.7) k/uL Basophils # (0-0.2) k/uL Sodium 143 (137-145) mmol/L Potassium 4.5 (3.5-5.1) mmol/L Chloride 109 H (98-107) mmol/L Carbon Dioxide 22 (22-30) mmol/L Anion Gap 12 mmol/L BUN 10 (7-17) mg/dL Creatinine 0.49 L (0.52-1.04) mg/dL Est GFR (CKD-EPI)AfAm >90 (>60 ml/min/1.73 sqM) Est GFR (CKD-EPI)NonAf >90 (>60 ml/min/1.73 sqM) Glucose 95 (74-99) mg/dL Calcium 10.4 H (8.4-10.2) mg/dL Total Bilirubin 0.4 (0.2-1.3) mg/dL AST 36 (14-36) U/L ALT 48 (9-52) U/L Alkaline Phosphatase 98 (38-126) U/L Total Protein 8.7 H (6.3-8.2) g/dL Albumin 5.3 H (3.5-5.0) g/dL Urine Color Urine Appearance (Clear) Urine pH (5.0-8.0) Ur Specific [place] (1.001-1.035) Urine Protein (Negative) Urine Glucose (UA) (Negative) Urine Ketones (Negative) Urine Blood (Negative) Urine Nitrite (Negative) Urine Bilirubin (Negative) Urine Urobilinogen (<2.0) mg/dL Ur Leukocyte Esterase (Negative) Urine RBC (0-5) /hpf Urine WBC (0-5) /hpf Ur Squamous Epith Cells (0-4) /hpf Urine Bacteria (None) /hpf Urine Mucus (None) /hpf Urine HCG, Qual (Not Detectd) - EKG Data EKG Comments: Ventricular rate 82, CO interval 120, QRS 86 QT/QTC 378/441. Normal sinus rhythm, no concern for acute ischemia. (Ruperto Nugent) Disposition Is patient prescribed a controlled substance at d/c from ED?: No <Ruperto Nugent - Last Filed: 11/10/18 00:06> <Erika Velasquez - Last Filed: 11/10/18 00:31> Clinical Impression: Dizziness, Vertigo Disposition: HOME SELF-CARE Condition: Stable Instructions (If sedation given, give patient instructions): Dizziness (ED) Additional Instructions: Patient to adhere to previously discussed treatment plan and will take medication(s) as directed. Patient to follow up with PCP in 1-2 days. Patient to return to ED if symptoms do not improve. Follow-up with neurology consult tomorrow. Return to ER if conditions worsen. Referrals: Cheryle Banerjee MD [Primary Care Provider] - 1-2 days Oscar Medina MD [Medical Doctor] - 1-2 days
[2018-11-10 00:32] VITALS: BP 113/78; PULSE 68; RESP 20
== END 2018-11-10 00:22 | disposition home or self-care (01) ==
LOC: EC 20:23
DX: R42 Dizziness and giddiness (principal); R10.9 Unspecified abdominal pain; F32.9 Major depressive disorder, single episode, unspecified; F43.10 Post-traumatic stress disorder, unspecified; Z79.899 Other long term (current) drug therapy; Z91.040 Latex allergy status; Z88.8 Allergy status to other drugs, medicaments and biological substances
CPT/HCPCS: 36415; 70450; 71046; 72125; 80053; 81001; 81025; 85025; 93005; 99285

== ENCOUNTER 2019-06-09 13:55 | Emergency (ER) | payer OTHER ==
[2019-06-09 14:17] VITALS: RESP 18; TEMP 98.4
--- NOTE | 2019-06-09 15:15 | ED ---
Abdominal Pain HPI - General Chief Complaint: Abdominal Pain Stated Complaint: Abdominal Pain Time Seen by Provider: 06/09/19 14:47 Source: patient, RN notes reviewed Mode of arrival: ambulatory Limitations: no limitations - History of Present Illness Initial Comments: 19-year-old female presents emergency Department with chief complaint of abdominal pain in early . Patient states that pain started a few days ago but states that she just found out she is . Patient states she is A0 has not scheduled OB appointment, patient denies any vaginal bleeding or vaginal discharge. Patient states she does have some urinary frequency no dysuria states that she has mild left-sided flank pain, right lower pain. States it's intermittent no consistent symptoms did have 1 episode nausea vomiting but currently has no symptoms. Patient any chest pain or shortness of breath - Related Data Home Medications Medication Instructions Recorded Confirmed Ascorbic Acid [Vitamin C] 500 mg PO DAILY 10/05/18 10/05/18 Biotin 5 mg PO DAILY 10/05/18 10/05/18 Venlafaxine HCl ER [Effexor XR] 75 mg PO DAILY 10/05/18 10/05/18 Previous Rx's Medication Instructions Recorded Ondansetron Odt [Zofran Odt] 4 mg PO Q8HR PRN #10 tab 10/05/18 Cephalexin [Keflex] 500 mg PO Q8HR #21 cap 06/09/19 Allergies Allergy/AdvReac Type Severity Reaction Status Date / Time latex Allergy Rash/Hives Verified 06/09/19 14:14 cyclobenzaprine HCl AdvReac HYPER Verified 06/09/19 14:14 [From Flexeril] Review of Systems ROS Statement: Those systems with pertinent positive or pertinent negative responses have been documented in the HPI. ROS Other: All systems not noted in ROS Statement are negative. Past Medical History Past Medical History: No Reported History Additional Past Medical History / Comment(s): hyperflexibility of the joints, previous shoulder dislocation History of Any Multi-Drug Resistant Organisms: None Reported Past Surgical History: No Surgical Hx Reported Additional Past Anesthesia/Blood Transfusion Reaction / Comment(s): no hx of blood transfusion Past Psychological History: ADD/ADHD, Anxiety, Bipolar, Depression, PTSD Smoking Status: Never smoker Past Alcohol Use History: Occasional Past Drug Use History: Marijuana - Past Family History Mother Family Medical History: Thyroid Disorder Additional Family Medical History / Comment(s): mom with hypothyroid and hypoglycemia Sister(s) Family Medical History: Asthma General Exam Limitations: no limitations General appearance: alert, in no apparent distress Head exam: Present: atraumatic, normocephalic, normal inspection Eye exam: Present: normal appearance, PERRL, EOMI. Absent: scleral icterus, conjunctival injection, periorbital swelling ENT exam: Present: normal exam, normal oropharynx, mucous membranes moist Neck exam: Present: normal inspection, full ROM. Absent: tenderness, meningismus, lymphadenopathy Respiratory exam: Present: normal lung sounds bilaterally. Absent: respiratory distress, wheezes, rales, rhonchi, stridor Cardiovascular Exam: Present: regular rate (heart rate was 96 on exam, patient was tachycardic in triage), normal rhythm, normal heart sounds. Absent: systolic murmur, diastolic murmur, rubs, gallop, clicks GI/Abdominal exam: Present: soft, tenderness (Minimal suprapubic), normal bowel sounds. Absent: distended, guarding, rebound, rigid Back exam: Present: CVA tenderness (L). Absent: CVA tenderness (R) Neurological exam: Present: alert Skin exam: Present: warm, dry, intact, normal color. Absent: rash Course Vital Signs 06/09/19 14:14 Temperature 98.4 F Pulse Rate 124 H Respiratory 18 Rate Blood Pressure 132/72 O2 Sat by Pulse 98 Oximetry Medical Decision Making - Medical Decision Making Ultrasound shows evidence of gestational sac, there is no evidence of ectopic. Patient's urinalysis shows evidence of urinary tract infection recent antibiotics. Patient also has complained of some GERD type symptoms she is advised to take Tums and talk to her CORRESPONDENT about possible antiacid treatment. - Lab Data Lab Results 06/09/19 06/09/19 Range/Units 15:08 15:32 HCG, Quant 3161.4 mIU/mL Urine Color Yellow Urine Appearance Clear (Clear) Urine pH 6.5 (5.0-8.0) Ur Specific [place] 1.015 (1.001-1.035) Urine Protein Negative (Negative) Urine Glucose (UA) Negative (Negative) Urine Ketones Negative (Negative) Urine Blood Negative (Negative) Urine Nitrite Negative (Negative) Urine Bilirubin Negative (Negative) Urine Urobilinogen <2.0 (<2.0) mg/dL Ur Leukocyte Esterase Large H (Negative) Urine RBC <1 (0-5) /hpf Urine WBC 5 (0-5) /hpf Ur Squamous Epith Cells 1 (0-4) /hpf Urine Bacteria Occasional H (None) /hpf Urine Mucus Rare H (None) /hpf Disposition Clinical Impression: Abdominal pain during , Asymptomatic bacteriuria during Disposition: HOME SELF-CARE Condition: Stable Instructions (If sedation given, give patient instructions): Abdominal Pain in (ED) Additional Instructions: Please return to the Emergency Department if symptoms worsen or any other concerns. Prescriptions: Cephalexin [Keflex] 500 mg PO Q8HR #21 cap Is patient prescribed a controlled substance at d/c from ED?: No Referrals: Cheryle Banerjee MD [Primary Care Provider] - 1-2 days Time of Disposition: 16:51
[2019-06-09 15:50] LABS: Appearance,Urine Clear (Clear); Bacteria,Urine Occasional /hpf; Bilirubin,Urine Negative (Negative); Blood,Urine Negative (Negative); Color,Urine Yellow; Glucose,Urine (UA) Negative (Negative); Ketones,Urine Negative (Negative); Leukocyte Esterase,Urine Large (Negative); Mucus,Urine Rare /hpf; Nitrite,Urine Negative (Negative); PH, Urine 6.5 (5.0-8.0); Protein,Urine Negative (Negative); RBC,Urine <1 /hpf (0-5); Specific Gravity,Urine 1.015 (1.001-1.035); Squamous Epithelial Cell,Urine 1 /hpf (0-4); Urobilinogen,Urine <2.0 mg/dL (<2.0); WBC,Urine 5 /hpf (0-5)
--- NOTE | 2019-06-09 17:05 | US ---
EXAMINATION TYPE: Transabdominal DATE OF EXAM: 06/09/2019 4:46 PM COMPARISON: NONE CLINICAL HISTORY: Pain. Cramping with EXAM PERFORMED: Transabdominal (TA) EXAM MEASUREMENTS: GESTATIONAL AGE / DATING Physician Established: Not yet established Dates by LMP: 05/03/2019 (5 weeks/2 days) EDC: 02/07/2020 Dates by First Scan: No previous this is first scan Dates by Current Scan for: possible gestational sac seen only MATERNAL ANATOMY Uterus: 9.2 x 6.1 x 7.1 cm Right Ovary: 4.2 x 2.9 x 3.2 cm Left Ovary: 2.2 x 1.8 x 2.5 cm Post CDS / Adnexa: Within normal limits Presence of free fluid: None visualized Presence of corpus luteal cyst: Not visualized Presence of subchorionic bleed: Not visualized GESTATION / SURVEY MSD: 0.6 cm (measures out of range, too early Date of LMP: 05/03/2019 Beta HcG (if available): 3164 IMPRESSION: Anechoic endometrial structure may represent early gestational sac. No pole is visualized which is not unusual finding in early . Continued follow-up with beta hCG and pelvic ultrasound i s recommended.
[2019-06-09 17:10] VITALS: BP 120/76; PULSE 95
== END 2019-06-09 17:08 | disposition home or self-care (01) ==
LOC: EC 13:55
DX: O99.89 Other specified diseases and conditions complicating pregnancy, childbirth and the puerperium (principal); R10.31 Right lower quadrant pain; O23.41 Unspecified infection of urinary tract in pregnancy, first trimester; O99.341 Other mental disorders complicating pregnancy, first trimester; F31.9 Bipolar disorder, unspecified; F41.9 Anxiety disorder, unspecified; Z88.8 Allergy status to other drugs, medicaments and biological substances; Z91.040 Latex allergy status; Z79.899 Other long term (current) drug therapy; Z3A.01 Less than 8 weeks gestation of pregnancy
CPT/HCPCS: 36415; 76801; 81001; 84702; 99284

== ENCOUNTER 2019-06-15 17:59 | Emergency (ER) | payer OTHER ==
[2019-06-15 18:09] VITALS: RESP 18
[2019-06-15] MEDS ORDERED: METOCLOPRAMIDE 5 MG/ML 2 ML VIAL IVP STA ×2 (18:46→20:55)
[2019-06-15] MEDS ORDERED: diphenhydrAMINE 50 MG/ML 1 ML VIAL IVP STA (18:46)
[2019-06-15] MEDS ORDERED: SODIUM CHLORIDE 0.9% 2,000 ML IV STA (18:46)
[2019-06-15 19:09] LABS: Basophils % (A) 0 %; Eosinophils # (A) 0.1 k/uL (0-0.7); Eosinophils % (A) 1 %; HCT 39.2 % (34.0-46.0); HGB 13.2 gm/dL (11.4-16.0); Lymphocytes # (A) 2.2 k/uL (1.0-4.8); Lymphocytes % (A) 19 %; MCH 25.8 pg (25.0-35.0); MCHC 33.6 g/dL (31.0-37.0); MCV 76.8 fL (80.0-100.0); Mean Platelet Volume 8.5; Monocytes # (A) 0.5 k/uL (0-1.0); Monocytes % (A) 4 %; Neutrophils # (A) 8.9 k/uL (1.3-7.7); Neutrophils % (A) 75 %; Platelet Count 315 k/uL (150-450); RBC 5.11 m/uL (3.80-5.40); RDW 12.9 % (11.5-15.5); WBC 11.8 k/uL (3.8-10.6)
[2019-06-15 19:18] LABS: ALT 19 U/L (4-34); AST 22 U/L (14-36); African American GFR (CKD) >90 (>60 ml/min/1.73 sqM); Albumin 4.7 g/dL (3.5-5.0); Alkaline Phosphatase 77 U/L (38-126); Anion Gap 12 mmol/L; Blood Urea Nitrogen 6 mg/dL (7-17); Calcium 9.9 mg/dL (8.4-10.2); Carbon Dioxide 21 mmol/L (22-30); Chloride 105 mmol/L (98-107); Glucose 86 mg/dL (74-99); Non-African American GFR(CKD) >90 (>60 ml/min/1.73 sqM); Potassium 4.1 mmol/L (3.5-5.1); Sodium 138 mmol/L (137-145); Total Bilirubin 0.6 mg/dL (0.2-1.3); Total Protein 7.9 g/dL (6.3-8.2)
[2019-06-15 19:28] LABS: Appearance,Urine Cloudy (Clear); Bacteria,Urine Moderate /hpf; Bilirubin,Urine Negative (Negative); Blood,Urine Negative (Negative); Color,Urine Yellow; Glucose,Urine (UA) Negative (Negative); Ketones,Urine 2+ (Negative); Leukocyte Esterase,Urine Large (Negative); Mucus,Urine Few /hpf; Nitrite,Urine Negative (Negative); Protein,Urine Negative (Negative); RBC,Urine 2 /hpf (0-5); Specific Gravity,Urine 1.012 (1.001-1.035); Squamous Epithelial Cell,Urine 2 /hpf (0-4); Urobilinogen,Urine <2.0 mg/dL (<2.0); WBC,Urine 7 /hpf (0-5)
--- NOTE | 2019-06-15 20:09 | US ---
EXAMINATION TYPE: Transabdominal DATE OF EXAM: 06/15/2019 7:46 PM COMPARISON: US CLINICAL HISTORY: abd pain, discharge, 6 wk preg. Nausea and vomiting in per patient and al so denies vaginal bleeding EXAM PERFORMED: Transabdominal (TA) EXAM MEASUREMENTS: GESTATIONAL AGE / DATING Physician Established: Not yet established Dates by LMP: (6 weeks/1 day) EDC: 02/07/2020 Dates by First Scan: possible gestational sac seen and not dated Dates by Current Scan for: ( 5 weeks/0 days) EDC: 02/15/2020 MATERNAL ANATOMY Uterus: 8.5 x 6.0 x 5.5cm Right Ovary: 2.8 x 1.9 x 2.4cm Left Ovary: 1.6 x 1.4 x 2.3cm Post CDS / Adnexa: wnl Presence of free fluid: no Presence of corpus luteal cyst: in right ovary = 1.8 x 1.4 x 1.5cm Presence of subchorionic bleed: no GESTATION / SURVEY MSD: 1.03cm (5 weeks/0 days) Yolk Sac (normal less than 6mm): not seen Date of LMP: 05/03/2019 Beta HcG (if available): NA Single gestational sac with decidual reaction seen in upper endometrium, early = 5 weeks/ 0 days, EDC: 02/15/2020 IMPRESSION: Evidence of intrauterine early of 5 weeks gestation. Follow-up exam recommended in 2 weeks to confirm a living fetus.
[2019-06-15 20:17] VITALS: BP 106/65; PULSE 94; TEMP 98.4
[2019-06-15 20:19] LABS: HCG,Quantitative Serum 21809.4 mIU/mL
--- NOTE | 2019-06-15 21:16 | ED ---
Nausea/Vomiting/Diarrhea HPI - General Chief complaint: Nausea/Vomiting/Diarrhea Stated complaint: NVD Time Seen by Provider: 06/15/19 18:10 Source: patient Mode of arrival: ambulatory Limitations: no limitations - History of Present Illness Initial comments: The patient is a 19-year-old female with no past medical history presents emergency room with reported nausea and vomiting for the past 3 days. States that she has had vomiting anytime she tries to eat or drink anything. She has been unable to hold down any water. Also admits to diarrhea which is non-bloody and occurs every hour. She denies any recent antibiotic use, travel or sick contacts. Denies possibility of eating any tainted foods. She is currently approximately 6 weeks . She was seen in our emergency room and on the eighth and had an ultrasound performed which demonstrated an intrauterine without a heartbeat. She was told follow-up with OB. States that she has been unable to as of yet. She is . Admits to decreased urine output. Denies dysuria or hematuria. Currently on Keflex for bacturia. States that she still has 3 days' worth of medication to take. Admits to some vaginal discharge. No abnormal vaginal bleeding. Denies pelvic cramping. No concern for sexually transmitted infections. Denies any fevers or chills. Denies constipation, melanotic stools or hematochezia. She has not taken anything for her nausea. No issues with high blood pressure. There are no alleviating, precipitating or modifying factors - Related Data Home Medications Medication Instructions Recorded Confirmed Ascorbic Acid [Vitamin C] 500 mg PO DAILY 10/05/18 10/05/18 Biotin 5 mg PO DAILY 10/05/18 10/05/18 Venlafaxine HCl ER [Effexor XR] 75 mg PO DAILY 10/05/18 10/05/18 Previous Rx's Medication Instructions Recorded Ondansetron Odt [Zofran Odt] 4 mg PO Q8HR PRN #10 tab 10/05/18 Cephalexin [Keflex] 500 mg PO Q8HR #21 cap 06/09/19 Doxylamine Succinate [Unisom] 25 mg PO HS #14 tablet 06/15/19 Metoclopramide [Reglan] 10 mg PO TID PRN #20 tab 06/15/19 Pyridoxine [Vitamin B-6] 50 mg PO HS #14 tablet 06/15/19 Allergies Allergy/AdvReac Type Severity Reaction Status Date / Time latex Allergy Rash/Hives Verified 06/15/19 18:09 cyclobenzaprine HCl AdvReac HYPER Verified 06/15/19 18:09 [From Flexeril] Review of Systems ROS Statement: Those systems with pertinent positive or pertinent negative responses have been documented in the HPI. ROS Other: All systems not noted in ROS Statement are negative. Past Medical History Past Medical History: No Reported History Additional Past Medical History / Comment(s): hyperflexibility of the joints, previous shoulder dislocation History of Any Multi-Drug Resistant Organisms: None Reported Past Surgical History: No Surgical Hx Reported Additional Past Anesthesia/Blood Transfusion Reaction / Comment(s): no hx of blood transfusion Past Psychological History: ADD/ADHD, Anxiety, Bipolar, Depression, PTSD Smoking Status: Never smoker Past Alcohol Use History: Occasional Past Drug Use History: Marijuana - Past Family History Mother Family Medical History: Thyroid Disorder Additional Family Medical History / Comment(s): mom with hypothyroid and hypoglycemia Sister(s) Family Medical History: Asthma General Exam Limitations: no limitations General appearance: alert, in no apparent distress Head exam: Present: atraumatic, normocephalic, normal inspection Eye exam: Present: normal appearance, PERRL, EOMI. Absent: scleral icterus, conjunctival injection, periorbital swelling ENT exam: Present: normal exam, mucous membranes moist Neck exam: Present: normal inspection. Absent: tenderness, meningismus, lymphadenopathy Respiratory exam: Present: normal lung sounds bilaterally. Absent: respiratory distress, wheezes, rales, rhonchi, stridor Cardiovascular Exam: Present: regular rate, normal rhythm, normal heart sounds. Absent: systolic murmur, diastolic murmur, rubs, gallop, clicks GI/Abdominal exam: Present: soft, normal bowel sounds. Absent: distended, tenderness, guarding, rebound, rigid Extremities exam: Present: normal inspection, full ROM, normal capillary refill. Absent: tenderness, pedal edema, joint swelling, calf tenderness Back exam: Present: normal inspection Neurological exam: Present: alert, oriented X3, CN II-XII intact Psychiatric exam: Present: normal affect, normal mood Skin exam: Present: warm, dry, intact, normal color. Absent: rash Course Vital Signs 1206/15/19 06/15/19 18:07 19:02 20:00 Temperature 98.0 F 98.6 F 98.4 F Pulse Rate 95 90 94 Respiratory 18 18 18 Rate Blood Pressure 109/77 116/74 106/65 O2 Sat by Pulse 98 99 98 Oximetry Medical Decision Making - Medical Decision Making Upon arrival the patient was placed into room 26. A thorough history and physical exam was performed. Peripheral IV was established. The patient was given a 2 L bolus of normal saline. She also given 10 g of Reglan and 25 mg of Benadryl. I did conduct laboratory studies. The patient is complaining of generalized abdominal cramping with vaginal discharge therefore I did order an ultrasound. Laboratory studies which are with also, 11.8. Creatinine 0.48. UA shows 2+ ketones, ALLERGIC sinusitis raise, 7 white blood cells, moderate bacteria. ultrasound is demonstrating evidence of an intrauterine early of 5 weeks gestation. Follow-up recommended in 2 weeks to confirm a living fetus. The patient's current beta Quant is 21,809. When checked on the eighth the patient's beta Quant was 3161. It is rising appropriately. I did reevaluate the patient. I did recommend a pelvic exam however the patient refused. I discussed diagnosis, differential and treatment options. I ordered stool studies however the patient was unable to have a bowel movement in the ER. She does have improvement in her nausea. The patient will be discharged home as she is now tolerating by mouth intake. I will provide her with prescriptions for B6 and Unisom. I also provided the patient with a prescription for Reglan. I gave her follow up information for Dr. Rothman office. She is to call make an appointment. She needs a repeat ultrasound within 1-2 weeks. She needs to follow up with OB within 2-4 days. Return to the emergency room for any new or worsening symptoms. She was given a dose of Reglan before her IV was taken out. Patient was then discharged home in stable condition - Lab Data Result diagrams: 06/15/19 18:34 06/15/19 18:34 Lab Results 06/15/19 06/15/19 06/15/19 Range/Units 18:34 18:34 18:34 WBC 11.8 H (3.8-10.6) k/uL RBC 5.11 (3.80-5.40) m/uL Hgb 13.2 (11.4-16.0) gm/dL Hct 39.2 (34.0-46.0) % MCV 76.8 L (80.0-100.0) fL MCH 25.8 (25.0-35.0) pg MCHC 33.6 (31.0-37.0) g/dL RDW 12.9 (11.5-15.5) % Plt Count 315 (150-450) k/uL Neutrophils % 75 % Lymphocytes % 19 % Monocytes % 4 % Eosinophils % 1 % Basophils % 0 % Neutrophils # 8.9 H (1.3-7.7) k/uL Lymphocytes # 2.2 (1.0-4.8) k/uL Monocytes # 0.5 (0-1.0) k/uL Eosinophils # 0.1 (0-0.7) k/uL Basophils # 0.0 (0-0.2) k/uL Sodium 138 (137-145) mmol/L Potassium 4.1 (3.5-5.1) mmol/L Chloride 105 (98-107) mmol/L Carbon Dioxide 21 L (22-30) mmol/L Anion Gap 12 mmol/L BUN 6 L (7-17) mg/dL Creatinine 0.48 L (0.52-1.04) mg/dL Est GFR (CKD-EPI)AfAm >90 (>60 ml/min/1.73 sqM) Est GFR (CKD-EPI)NonAf >90 (>60 ml/min/1.73 sqM) Glucose 86 (74-99) mg/dL Calcium 9.9 (8.4-10.2) mg/dL Total Bilirubin 0.6 (0.2-1.3) mg/dL AST 22 (14-36) U/L ALT 19 (4-34) U/L Alkaline Phosphatase 77 (38-126) U/L Total Protein 7.9 (6.3-8.2) g/dL Albumin 4.7 (3.5-5.0) g/dL Lipase 42 (23-300) U/L HCG, Quant 57437.4 mIU/mL Urine Color Yellow Urine Appearance Cloudy H (Clear) Urine pH 6.0 (5.0-8.0) Ur Specific [place] 1.012 (1.001-1.035) Urine Protein Negative (Negative) Urine Glucose (UA) Negative (Negative) Urine Ketones 2+ H (Negative) Urine Blood Negative (Negative) Urine Nitrite Negative (Negative) Urine Bilirubin Negative (Negative) Urine Urobilinogen <2.0 (<2.0) mg/dL Ur Leukocyte Esterase Large H (Negative) Urine RBC 2 (0-5) /hpf Urine WBC 7 H (0-5) /hpf Ur Squamous Epith Cells 2 (0-4) /hpf Urine Bacteria Moderate H (None) /hpf Urine Mucus Few H (None) /hpf Disposition Clinical Impression: Abdominal pain during , Asymptomatic bacteriuria during , Dehydration, moderate, Diarrhea, Nausea and vomiting Disposition: HOME SELF-CARE Condition: Stable Instructions (If sedation given, give patient instructions): Acute Nausea and Vomiting (ED) Additional Instructions: Please follow-up with the primary care doctor in 2-4 days. Follow up with the [facility] in one week. You will need a repeat ultrasound within the next 2 weeks. Return to the emergency room for any new or worsening symptoms Prescriptions: Metoclopramide [Reglan] 10 mg PO TID PRN #20 tab PRN Reason: Nausea Doxylamine Succinate [Unisom] 25 mg PO HS #14 tablet Pyridoxine [Vitamin B-6] 50 mg PO HS #14 tablet Is patient prescribed a controlled substance at d/c from ED?: No Referrals: Cheryle Banerjee MD [Primary Care Provider] - 1-2 days Maricarmen Rothman MD [STAFF PHYSICIAN] - 1-2 days Time of Disposition: 21:17
== END 2019-06-15 21:37 | disposition home or self-care (01) ==
LOC: EC 17:59
DX: O99.281 Endocrine, nutritional and metabolic diseases complicating pregnancy, first trimester (principal); O99.89 Other specified diseases and conditions complicating pregnancy, childbirth and the puerperium; O23.41 Unspecified infection of urinary tract in pregnancy, first trimester; E86.0 Dehydration; R19.7 Diarrhea, unspecified; O99.341 Other mental disorders complicating pregnancy, first trimester; F41.9 Anxiety disorder, unspecified; F43.10 Post-traumatic stress disorder, unspecified; F31.9 Bipolar disorder, unspecified; Z79.899 Other long term (current) drug therapy; Z3A.01 Less than 8 weeks gestation of pregnancy; Z91.040 Latex allergy status; Z88.8 Allergy status to other drugs, medicaments and biological substances
CPT/HCPCS: 36415; 80053; 83690; 85025; 81001; 84702; 76801; 99284; 96374; 96375; 96376; 96361; J1200; J2765

== ENCOUNTER 2019-06-21 13:58 | Observation (INO) | payer OTHER ==
[2019-06-21] MEDS ORDERED: SODIUM CHLORIDE 0.9% 1,000 ML IV STA ×2 (14:12→15:34)
[2019-06-21] MEDS ORDERED: PYRIDOXINE 100 MG/ML 1 ML VIAL IVP STA (14:17)
--- NOTE | 2019-06-21 14:24 | ED ---
General Adult HPI - General Chief complaint: Nausea/Vomiting/Diarrhea Stated complaint: vomiting, 7 weeks Time Seen by Provider: 06/21/19 14:04 Source: patient, RN notes reviewed, old records reviewed Mode of arrival: ambulatory Limitations: no limitations - History of Present Illness Initial comments: 19-year-old female patient with past medical history significant for , nausea vomiting or presents with a chief complaint of nausea vomiting. Patient is a . Patient reports that she states that she vomited 40 times yesterday. Patient has been taking Reglan vitamin B6 with minimal improvement. Patient reports she is very dehydrated. Patient also reports that she has some generalized abdominal discomfort. Denies any vaginal bleeding. Denies any other complaints at this time. Systemic: Pt denies fatigue, fever/chills, rash. Pt denies weakness, night sweats, weight loss. Neuro: Pt denies headache, visual disturbances, syncope or pre-syncope. HEENT: Pt denies ocular discharge or irritation, otalgia, rhinorrhea, pharyngitis or notable lymphadenopathy. Cardiopulmonary: Pt denies chest pain, SOB, heart palpitations, dyspnea on exertion. : Pt denies dysuria, burning w/ urination, frequency/urgency. Denies new onset urinary or bowel incontinence. MSK: Pt denies myalgia, loss of strength or function in extremities. Neuro: Pt denies new onset weakness, paresthesias. - Related Data Previous Rx's Medication Instructions Recorded Doxylamine Succinate [Unisom] 25 mg PO HS #14 tablet 06/15/19 Metoclopramide [Reglan] 10 mg PO TID PRN #20 tab 06/15/19 Pyridoxine [Vitamin B-6] 50 mg PO HS #14 tablet 06/15/19 Allergies Allergy/AdvReac Type Severity Reaction Status Date / Time latex Allergy Rash/Hives Verified 06/21/19 17:28 cyclobenzaprine HCl AdvReac HYPER Verified 06/21/19 17:28 [From Flexeril] Review of Systems ROS Statement: Those systems with pertinent positive or pertinent negative responses have been documented in the HPI. ROS Other: All systems not noted in ROS Statement are negative. Past Medical History Past Medical History: No Reported History Additional Past Medical History / Comment(s): hyperflexibility of the joints, previous shoulder dislocation History of Any Multi-Drug Resistant Organisms: None Reported Past Surgical History: No Surgical Hx Reported Additional Past Anesthesia/Blood Transfusion Reaction / Comment(s): no hx of blood transfusion Past Psychological History: ADD/ADHD, Anxiety, Bipolar, Depression, PTSD Smoking Status: Never smoker Past Alcohol Use History: Occasional Past Drug Use History: Marijuana - Past Family History Mother Family Medical History: Thyroid Disorder Additional Family Medical History / Comment(s): mom with hypothyroid and hypoglycemia Sister(s) Family Medical History: Asthma General Exam - General Exam Comments Initial Comments: Constitutional: NAD, AOX3, Pt has pleasant affect. HEENT: NC/AT, trachea midline, neck supple, no lymphadenopathy. Posterior pharynx non erythematous, without exudates. External ears appear normal, without discharge. Mucous membranes moist. Eyes PERRLA, EOM intact. There is no scleral icterus. No pallor noted. Cardiopulmonary: RRR, no murmurs, rubs or gallops, no JVD noted. Lungs CTAB in anterior and posterior koenig. No peripheral edema. Abdominal exam: Abdomen soft and non-distended. abdomen mildly tender to palpation left upper quadrant epigastric very mildly right lower quadrant region.. Bowel sounds active in LLQ. No hepatosplenomegaly. No ecchymosis Neuro: CN II-XII grossly intact. No nuchal rigidity. No raccon eyes, no trejo sign, no hemotympanum. No cervical spinal tenderness. MSK: No posterior calf tenderness bilaterally, homans sign negative bilaterally. Posterior tibialis and radial pulse +2 bilaterally. Sensation intact in upper and lower extremities. Full active ROM in upper and lower extremities, 5/5 stregnth. Limitations: no limitations Course Vital Signs 06/21/19 14:01 Temperature 97.8 F Pulse Rate 101 H Respiratory 20 Rate Blood Pressure 112/75 O2 Sat by Pulse 97 Oximetry Medical Decision Making - Medical Decision Making 19-year-old female patient with past medical history significant for , nausea vomiting or presents with a chief complaint of nausea vomiting. Patient is a . Patient reports that she states that she vomited 40 times yesterday. Patient has been taking Reglan vitamin B6 with minimal improvement. Patient reports she is very dehydrated. Patient also reports that she has some generalized abdominal discomfort. Denies any vaginal bleeding. Denies any other complaints at this time. Patient will signs stable, afebrile. Physical exam displayed abdomen mild tenderness to palpation left upper quadrant epigastric region, very mildly right lower quadrant region. Investigations revealed leukocytosis of 13.6. HCG Quant 67,516 her spine appropriately. UA displayed plus for ketones, possible urinary tract infection, large amount of bacteria.page was offered pelvic exam there is a 1 to perform this. Physician trust administrative assistant Hilda Grier entered room to perform pelvic exam on patient, patient at that time reportedly climbed pelvic. Patient will be admitted for dehyd ration, intractable nausea and vomiting. Case discussed with Dr. Schneider. - Lab Data Result diagrams: 06/21/19 14:35 06/21/19 14:35 Lab Results 06/21/19 06/21/19 06/21/19 Range/Units 14:35 14:35 14:35 WBC 13.6 H (3.8-10.6) k/uL RBC 5.13 (3.80-5.40) m/uL Hgb 13.4 (11.4-16.0) gm/dL Hct 39.4 (34.0-46.0) % MCV 76.8 L (80.0-100.0) fL MCH 26.2 (25.0-35.0) pg MCHC 34.1 (31.0-37.0) g/dL RDW 12.8 (11.5-15.5) % Plt Count 313 (150-450) k/uL Neutrophils % 87 % Lymphocytes % 8 % Monocytes % 3 % Eosinophils % 1 % Basophils % 0 % Neutrophils # 11.8 H (1.3-7.7) k/uL Lymphocytes # 1.1 (1.0-4.8) k/uL Monocytes # 0.4 (0-1.0) k/uL Eosinophils # 0.1 (0-0.7) k/uL Basophils # 0.1 (0-0.2) k/uL Sodium 138 (137-145) mmol/L Potassium 4.1 (3.5-5.1) mmol/L Chloride 104 (98-107) mmol/L Carbon Dioxide 21 L (22-30) mmol/L Anion Gap 13 mmol/L BUN 9 (7-17) mg/dL Creatinine 0.52 (0.52-1.04) mg/dL Est GFR (CKD-EPI)AfAm >90 (>60 ml/min/1.73 sqM) Est GFR (CKD-EPI)NonAf >90 (>60 ml/min/1.73 sqM) Glucose 93 (74-99) mg/dL Calcium 9.7 (8.4-10.2) mg/dL Total Bilirubin 0.8 (0.2-1.3) mg/dL AST 27 (14-36) U/L ALT 24 (4-34) U/L Alkaline Phosphatase 86 (38-126) U/L Total Protein 8.4 H (6.3-8.2) g/dL Albumin 5.0 (3.5-5.0) g/dL Lipase 53 (23-300) U/L HCG, Quant 14544.6 mIU/mL Urine Color Dark Yellow Urine Appearance Cloudy H (Clear) Urine pH 5.5 (5.0-8.0) Ur Specific [place] 1.031 (1.001-1.035) Urine Protein 1+ H (Negative) Urine Glucose (UA) Negative (Negative) Urine Ketones 4+ H (Negative) Urine Blood Trace H (Negative) Urine Nitrite Negative (Negative) Urine Bilirubin Negative (Negative) Urine Urobilinogen 2.0 (<2.0) mg/dL Ur Leukocyte Esterase Large H (Negative) Urine RBC 5 (0-5) /hpf Urine WBC 19 H (0-5) /hpf Ur Squamous Epith Cells 14 H (0-4) /hpf Urine Bacteria Many H (None) /hpf Urine Mucus Many H (None) /hpf Disposition Clinical Impression: Intractable nausea and vomiting Disposition: ADMITTED IP TO THIS HOSP Condition: Fair Is patient prescribed a controlled substance at d/c from ED?: No Referrals: Cheryle Banerjee MD [Primary Care Provider] - 1-2 days
[2019-06-21 14:51] LABS: Basophils # (A) 0.1 k/uL (0-0.2); Basophils % (A) 0 %; Eosinophils # (A) 0.1 k/uL (0-0.7); Eosinophils % (A) 1 %; HCT 39.4 % (34.0-46.0); HGB 13.4 gm/dL (11.4-16.0); Lymphocytes # (A) 1.1 k/uL (1.0-4.8); Lymphocytes % (A) 8 %; MCH 26.2 pg (25.0-35.0); MCHC 34.1 g/dL (31.0-37.0); MCV 76.8 fL (80.0-100.0); Mean Platelet Volume 8.6; Monocytes # (A) 0.4 k/uL (0-1.0); Monocytes % (A) 3 %; Neutrophils # (A) 11.8 k/uL (1.3-7.7); Neutrophils % (A) 87 %; Platelet Count 313 k/uL (150-450); RBC 5.13 m/uL (3.80-5.40); RDW 12.8 % (11.5-15.5); WBC 13.6 k/uL (3.8-10.6)
[2019-06-21 14:52] LABS: Appearance,Urine Cloudy (Clear); Bacteria,Urine Many /hpf; Bilirubin,Urine Negative (Negative); Blood,Urine Trace (Negative); Color,Urine Dark Yellow; Glucose,Urine (UA) Negative (Negative); Ketones,Urine 4+ (Negative); Leukocyte Esterase,Urine Large (Negative); Mucus,Urine Many /hpf; Nitrite,Urine Negative (Negative); PH, Urine 5.5 (5.0-8.0); Protein,Urine 1+ (Negative); RBC,Urine 5 /hpf (0-5); Specific Gravity,Urine 1.031 (1.001-1.035); Squamous Epithelial Cell,Urine 14 /hpf (0-4); WBC,Urine 19 /hpf (0-5)
[2019-06-21 14:59] LABS: ALT 24 U/L (4-34); AST 27 U/L (14-36); African American GFR (CKD) >90 (>60 ml/min/1.73 sqM); Alkaline Phosphatase 86 U/L (38-126); Anion Gap 13 mmol/L; Blood Urea Nitrogen 9 mg/dL (7-17); Calcium 9.7 mg/dL (8.4-10.2); Carbon Dioxide 21 mmol/L (22-30); Chloride 104 mmol/L (98-107); Glucose 93 mg/dL (74-99); Non-African American GFR(CKD) >90 (>60 ml/min/1.73 sqM); Potassium 4.1 mmol/L (3.5-5.1); Sodium 138 mmol/L (137-145); Total Bilirubin 0.8 mg/dL (0.2-1.3); Total Protein 8.4 g/dL (6.3-8.2)
[2019-06-21] MEDS ORDERED: FAMOTIDINE 20 MG/2 ML VIAL IV STA (15:36)
[2019-06-21 15:41] LABS: HCG,Quantitative Serum 67516.6 mIU/mL
--- NOTE | 2019-06-21 15:42 | US ---
EXAMINATION TYPE: US venous doppler duplex LE RT DATE OF EXAM: 06/21/2019 3:34 PM COMPARISON: NONE CLINICAL HISTORY: calf pain . calf pain SIDE PERFORMED: Right TECHNIQUE: The lower extremity deep venous system is examined utilizing real time linear array sonog antonio with graded compression, doppler sonography and color-flow sonography. VESSELS IMAGED: External Iliac Vein (EIV) Common Femoral Vein Deep Femoral Vein Greater Saphenous Vein * Femoral Vein Popliteal Vein Small Saphenous Vein * Proximal Calf Veins (* superficial vessels) Right Leg: Negative for DVT IMPRESSION: No evidence for DVT
[2019-06-21] MEDS ORDERED: METOCLOPRAMIDE 5 MG/ML 2 ML VIAL IVP STA (15:55)
[2019-06-21] MEDS ORDERED: ONDANSETRON 4 MG/2 ML VIAL IVP STA (16:22)
[2019-06-21] MEDS ORDERED: ACETAMINOPHEN TAB 500 MG TAB PO STA (16:53)
[2019-06-21] MEDS ORDERED: NALOXONE 0.4 MG/ML 1 ML VIAL IV PRN (17:33)
[2019-06-21] MEDS ORDERED: 0.9% NACL WITH KCL 20 MEQ/L 1,000 ML IV SCH (18:00)
[2019-06-21] MEDS: ACETAMINOPHEN TAB 500 MG TAB PO PRN (23:30)
[2019-06-21 23:38] VITALS: TEMP 97.5
[2019-06-22] MEDS: SODIUM CHLORIDE 0.9% 1,000 ML IV SCH ×2 (00:09→11:13)
[2019-06-22] MEDS: ONDANSETRON 4 MG/2 ML VIAL IVP PRN ×3 (01:09→18:09)
[2019-06-22] MEDS: ACETAMINOPHEN TAB 500 MG TAB PO PRN ×2 (07:32→17:32)
[2019-06-22] MEDS: METOCLOPRAMIDE 5 MG/ML 2 ML VIAL IVP PRN ×2 (07:32→17:06)
[2019-06-22 08:31] LABS: Basophils % (A) 0 %; Eosinophils # (A) 0.1 k/uL (0-0.7); Eosinophils % (A) 1 %; HCT 32.6 % (34.0-46.0); HGB 10.7 gm/dL (11.4-16.0); Lymphocytes # (A) 1.2 k/uL (1.0-4.8); Lymphocytes % (A) 17 %; MCH 26.4 pg (25.0-35.0); MCHC 32.7 g/dL (31.0-37.0); MCV 80.7 fL (80.0-100.0); Mean Platelet Volume 8.8; Monocytes # (A) 0.4 k/uL (0-1.0); Monocytes % (A) 6 %; Neutrophils # (A) 5.4 k/uL (1.3-7.7); Neutrophils % (A) 75 %; Platelet Count 214 k/uL (150-450); RBC 4.04 m/uL (3.80-5.40); WBC 7.3 k/uL (3.8-10.6)
[2019-06-22 08:44] LABS: ALT 31 U/L (4-34); AST 37 U/L (14-36); African American GFR (CKD) >90 (>60 ml/min/1.73 sqM); Albumin 3.3 g/dL (3.5-5.0); Alkaline Phosphatase 53 U/L (38-126); Anion Gap 8 mmol/L; Blood Urea Nitrogen 3 mg/dL (7-17); Calcium 8.2 mg/dL (8.4-10.2); Carbon Dioxide 18 mmol/L (22-30); Chloride 109 mmol/L (98-107); Glucose 97 mg/dL (74-99); Non-African American GFR(CKD) >90 (>60 ml/min/1.73 sqM); Potassium 3.6 mmol/L (3.5-5.1); Sodium 135 mmol/L (137-145); Total Bilirubin 0.6 mg/dL (0.2-1.3); Total Protein 6.2 g/dL (6.3-8.2)
--- NOTE | 2019-06-22 12:24 | P.HPOB ---
History of Present Illness H&P Date: 06/22/19 Chief Complaint: Nausea and vomiting This is a 19-year-old female 1 para 0 with a last menstrual period of 05/03/2019, estimated date of confinement of 02/09/2020, with an estimated gestational age of 7 weeks, who presents to the emergency room with complaints of nausea and vomiting and unable to hold anything down for about a week. She was taking Reglan at home that was prescribed to her through the ER. She was also using vitamin B6 and Unisom. She came to the emergency room because she felt dehydrated. She was given fluids and has been alternating with Reglan and Zofran and so far she has had some dry heaves but no active vomiting. She has been getting good urine output at this time and is drinking liquids and tolerating Jell-O and applesauce. The last time she vomited was last night. She does have a appointment with Dr. Sahni on July 15 for a new OB visit. Obstetrical history: Social history: She is single. She has a boyfriend. She is not currently working. Review of Systems Constitutional: Denies chills, Denies fever Eyes: denies blurred vision, denies pain Ears, nose, mouth and throat: Denies headache, Denies sore throat Cardiovascular: Denies chest pain, Denies shortness of breath Respiratory: Denies cough Gastrointestinal: Reports abdominal pain (Lower abdominal pain on her sides most likely from vomiting), Reports nausea, Reports vomiting Genitourinary: Reports , Denies abnormal vaginal bleeding Musculoskeletal: Denies myalgias Integumentary: Denies pruritus, Denies rash Neurological: Denies numbness, Denies weakness Past Medical History Additional Past Medical History / Comment(s): hyperflexibility of the joints, previous shoulder dislocation History of Any Multi-Drug Resistant Organisms: None Reported Past Surgical History: No Surgical Hx Reported Additional Past Anesthesia/Blood Transfusion Reaction / Comment(s): no hx of blood transfusion, no surgery history. Past Psychological History: ADD/ADHD, Anxiety, Bipolar, Depression, PTSD Additional Psychological History / Comment(s): concerta 30mg daily -not currently taking Smoking Status: Former smoker Past Alcohol Use History: Occasional Past Drug Use History: Marijuana Additional Drug Use History / Comment(s): Was using marijuanna periodically, not current. Drinks 1 drink a month. smoked here and there not any more. - Past Family History Mother Family Medical History: Thyroid Disorder Additional Family Medical History / Comment(s): mom with hypothyroid and hypoglycemia Sister(s) Family Medical History: Asthma Medications and Allergies Home Medications Medication Instructions Recorded Confirmed Type Doxylamine Succinate [Unisom] 25 mg PO HS #14 tablet 06/15/19 06/21/19 Rx Metoclopramide [Reglan] 10 mg PO TID PRN #20 tab 06/15/19 06/21/19 Rx Pyridoxine [Vitamin B-6] 50 mg PO HS #14 tablet 06/15/19 06/21/19 Rx Allergies Allergy/AdvReac Type Severity Reaction Status Date / Time latex Allergy Rash/Hives Verified 06/21/19 19:29 cyclobenzaprine HCl AdvReac HYPER Verified 06/21/19 19:29 [From Flexeril] Exam Osteopathic Statement: *. No significant issues noted on an osteopathic structural exam other than those noted in the History and Physical/Consult. Vital Signs Temp Pulse Pulse Resp BP BP Pulse Ox 06/22/19 07:39 83 20 103/68 97 06/22/19 00:00 78 18 06/21/19 23:00 97.5 F L 78 18 99/61 98 06/21/19 19:52 82 18 06/21/19 18:56 98.2 F 82 20 106/70 97 06/21/19 18:08 98.5 F 84 20 111/54 98 06/21/19 14:01 97.8 F 101 H 20 112/75 97 Intake and Output 06/21/19 06/22/19 06/22/19 22:59 06:59 14:59 Intake Total 100 Output Total 500 400 Balance -400 -400 Intake: Oral 100 Output: Urine 500 400 Other: Voiding Method Toilet Toilet Weight 67 kg Gen.: Well-developed well-nourished female in no acute distress Lungs: Clear to auscultation bilaterally Heart: Regular rate and rhythm Abdomen: Soft, nontender with positive bowel sounds 4 Extremities: Negative Homans Results Result Diagrams: 06/22/19 08:00 06/22/19 08:00 Abnormal Lab Results - Last 24 Hours (Table) 12/20/19 12/20/19 12/20/19 Range/Units 14:35 14:35 14:35 WBC 13.6 H (3.8-10.6) k/uL Hgb (11.4-16.0) gm/dL Hct (34.0-46.0) % MCV 76.8 L (80.0-100.0) fL Neutrophils # 11.8 H (1.3-7.7) k/uL Sodium (137-145) mmol/L Chloride (98-107) mmol/L Carbon Dioxide 21 L (22-30) mmol/L BUN (7-17) mg/dL Creatinine (0.52-1.04) mg/dL Calcium (8.4-10.2) mg/dL AST (14-36) U/L Total Protein 8.4 H (6.3-8.2) g/dL Albumin (3.5-5.0) g/dL Urine Appearance Cloudy H (Clear) Urine Protein 1+ H (Negative) Urine Ketones 4+ H (Negative) Urine Blood Trace H (Negative) Ur Leukocyte Esterase Large H (Negative) Urine WBC 19 H (0-5) /hpf Ur Squamous Epith Cells 14 H (0-4) /hpf Urine Bacteria Many H (None) /hpf Urine Mucus Many H (None) /hpf 06/22/19 06/22/19 Range/Units 08:00 08:00 WBC (3.8-10.6) k/uL Hgb 10.7 L (11.4-16.0) gm/dL Hct 32.6 L (34.0-46.0) % MCV (80.0-100.0) fL Neutrophils # (1.3-7.7) k/uL Sodium 135 L (137-145) mmol/L Chloride 109 H (98-107) mmol/L Carbon Dioxide 18 L (22-30) mmol/L BUN 3 L (7-17) mg/dL Creatinine 0.46 L (0.52-1.04) mg/dL Calcium 8.2 L (8.4-10.2) mg/dL AST 37 H (14-36) U/L Total Protein 6.2 L (6.3-8.2) g/dL Albumin 3.3 L (3.5-5.0) g/dL Urine Appearance (Clear) Urine Protein (Negative) Urine Ketones (Negative) Urine Blood (Negative) Ur Leukocyte Esterase (Negative) Urine WBC (0-5) /hpf Ur Squamous Epith Cells (0-4) /hpf Urine Bacteria (None) /hpf Urine Mucus (None) /hpf Microbiology - Last 24 Hours (Table) 06/21/19 14:35 Urine Culture - Preliminary Urine,Voided Assessment and Plan (1) Hyperemesis complicating , antepartum Current Visit: Yes Status: Acute Code(s): O21.0 - MILD HYPEREMESIS GRAVIDARUM SNOMED Code(s): 97681707 Plan: Admission for IV hydration. We'll continue alternating between Reglan and Zofran. Patient was advised of the risks of both Reglan and Zofran. She is advised to only take them if she needs them. She is advised that she can continue taking vitamin B6 and Unisom as needed. We'll continue IV hydration and antiemetics through the day today. As long as she is able to hold things down and is not actively vomiting, may sent home after dinner tonight. She is advised to follow-up with Dr. Sahni in the office as scheduled and to call the office if she continues to have any further problems.
--- NOTE | 2019-06-22 12:30 | P.DS ---
Providers Date of admission: 06/21/19 16:47 Attending physician: Laz Sahni Primary care physician: Cheryle Banerjee - Discharge Diagnosis(es) (1) Hyperemesis complicating , antepartum Current Visit: Yes Status: Acute Hospital Course: This is a 19-year-old female 1 para 0 at 7 weeks who presented with hyperemesis and dehydration. She was given IV hydration and antibiotics with Zofran and Reglan. So far today she has had not vomited since last night. She has had a few dry heaves but is holding down liquids and soft foods. The plan will be to discharge home after dinner today as long as she is still able to hold things down and she is not actively vomiting. She will be given a prescription for Reglan and Zofran to alternate as needed at home. She is advi sed not to take these medications if she does not need them. She is advised follow-up with Dr. Sahni in the office as scheduled but to call the office if she has any further concerns or problems prior to her appointment time. She is also advised to return to the ER if she is unable to hold anything down for more than 24 hours. Patient Condition at Discharge: Stable Plan - Discharge Summary Discharge Rx Participant: Yes New Discharge Prescriptions: New Ondansetron Odt [Zofran Odt] 4 mg PO Q8HR PRN #30 tab PRN Reason: Vomiting Continue Doxylamine Succinate [Unisom] 25 mg PO HS #14 tablet Pyridoxine [Vitamin B-6] 50 mg PO HS #14 tablet Metoclopramide [Reglan] 10 mg PO TID PRN #30 tab PRN Reason: Vomiting Discharge Medication List Doxylamine Succinate [Unisom] 25 mg PO HS #14 tablet 06/15/19 [Rx] Pyridoxine [Vitamin B-6] 50 mg PO HS #14 tablet 06/15/19 [Rx] Metoclopramide [Reglan] 10 mg PO TID PRN #30 tab 06/22/19 [Rx] Ondansetron Odt [Zofran Odt] 4 mg PO Q8HR PRN #30 tab 06/22/19 [Rx] Follow up Appointment(s)/Referral(s): Cheryle Banerjee MD [Primary Care Provider] - 1-2 days Kuester,Laz, DO [Doctor of Osteopathic Medicine] - 3 Weeks Patient Instructions/Handouts: Hyperemesis Gravidarum (GEN) Activity/Diet/Wound Care/Special Instructions: Activity as tolerated. Diet as tolerated. Discharge Disposition: HOME SELF-CARE
[2019-06-22 15:13] VITALS: BP 109/61; PULSE 77; RESP 18
== END 2019-06-22 18:18 | disposition home or self-care (01) ==
LOC: EC 13:58 → 6PED 16:47
PROVIDERS: ADMIT Obstetrics & Gynecology; ATTEND Obstetrics & Gynecology
DX: O21.1 Hyperemesis gravidarum with metabolic disturbance (principal); O99.341 Other mental disorders complicating pregnancy, first trimester; F90.9 Attention-deficit hyperactivity disorder, unspecified type; F41.9 Anxiety disorder, unspecified; F31.9 Bipolar disorder, unspecified; F43.10 Post-traumatic stress disorder, unspecified; O99.89 Other specified diseases and conditions complicating pregnancy, childbirth and the puerperium; M25.80 Other specified joint disorders, unspecified joint; Z3A.01 Less than 8 weeks gestation of pregnancy; Z79.899 Other long term (current) drug therapy; Z91.040 Latex allergy status; Z88.8 Allergy status to other drugs, medicaments and biological substances; Z87.39 Personal history of other diseases of the musculoskeletal system and connective tissue; Z87.891 Personal history of nicotine dependence; Z83.49 Family history of other endocrine, nutritional and metabolic diseases; Z82.5 Family history of asthma and other chronic lower respiratory diseases
CPT/HCPCS: 96366; 96376; 96365; 96375; 99285; 36415; 80053 ×2; 83690; 85025 ×2; 81001; 84702; 87086; 93971; G0378 ×2; J3415; J2765 ×2; J2405 ×2; J0696; 96361

== ENCOUNTER → 2019-07-17 | Outpatient (CLI) | payer OTHER ==
--- NOTE | 2019-07-17 15:55 | US ---
EXAMINATION TYPE: Transabdominal DATE OF EXAM: 07/17/2019 3:35 PM COMPARISON: US 2018 CLINICAL HISTORY: Z36 Confirm dates. Confirm dates EXAM PERFORMED: Transabdominal (TA) EXAM MEASUREMENTS: GESTATIONAL AGE / DATING Physician Established: (10 weeks/5 days) EDC: 02/07/2020 Dates by LMP: (10 weeks/5 days) EDC: 02/07/2020 Dates by First Scan: Only possible gestational sac seen Dates by Current Scan for: (10 weeks/4 days) EDC: 02/08/2020 MATERNAL ANATOMY Uterus: 11.2 x 5.4 x 6.7cm Right Ovary: 2.9 x 1.9 x 2.7cm Left Ovary: 1.8 x 1.0 x 1.0cm Post CDS / Adnexa: wnl Presence of free fluid: no Presence of corpus luteal cyst: not seen at this time Presence of subchorionic bleed: no GESTATION / SURVEY CRL: 3.6cm (10 weeks/4 days) Yolk Sac (normal less than 6mm): 5.3mm Heart Rate: 174 bpm Rhythm: Normal IUP: Viable IUP Nuchal Translucency 10-14wks (normal less than 3mm): 1.6mm Date of LMP: 05/03/2019 Beta HcG (if available): Not available at time of exam Viable single IUP measuring 10 weeks 4 days with a heart rate of 174bpm and an estimated delivery kari e of 02/08/2020. IMPRESSION: 1. Single intrauterine gestation estimated at 10 weeks 4 days gestation based on the crown-rump lengt h. Cardiac activity measures 174.
== END | disposition home or self-care (01) ==
LOC: RADUSWWP 15:19
PROVIDERS: ATTEND Obstetrics & Gynecology
DX: Z36.9 Encounter for antenatal screening, unspecified (principal); Z3A.10 10 weeks gestation of pregnancy
CPT/HCPCS: 76801; 76813

== ENCOUNTER 2019-07-23 15:16 | Observation (INO) | payer OTHER ==
[2019-07-23] MEDS ORDERED: ONDANSETRON 4 MG/2 ML VIAL IVP PRN (15:36)
[2019-07-23 15:40] LABS: Glucose,Whole Blood 84 mg/dL (75-99)
[2019-07-23] MEDS: LACTATED RINGERS 1,000 ML IV SCH ×2 (15:49→20:56)
--- NOTE | 2019-07-23 17:07 | P.HPOB ---
History of Present Illness H&P Date: 07/23/19 Chief Complaint: Intrauterine at 10 weeks hyperemesis gravidarum Patient is a 19 at 10 weeks gestation who has lost approximately 12 pounds the last several weeks due to hyperemesis. The hyperemesis does appear to be slightly improved from last week but she is again lost approximately 3 pounds in 1 week. She relates that she is perhaps not thrown up quite as much but she is still not able to keep anything down. She has not really been on a emesis diet and that will be addressed more thoroughly today and with the dietary. We'll start her on Pepcid IV and then transitioned to Pepcid by mouth in hopes of controlling some of the reflux like symptoms. She also complains of constipation and that she is not had a bowel movement in several days and she is very uncomfortable in a lot of pain. We had previously discussed medication use during for nausea and emesis. She has already failed Reglan and vitamin B6/Unisom. She is tolerating the Zofran but it is not completely solving her nausea and vomiting. She is admitted for IV hydration and consultation with dietary/nutrition to verify no other adjustments are needed. We'll also provide stool softeners. We did discuss potential need for something stronger than by mouth stool softeners but she declines use of same. At this time, her vital signs are stable and she is afebrile. Her heart is regular, lungs are clear, extremities are without pain. Abdomen is soft. Assessment in trauterine at 10 weeks with hyperemesis gravidarum. Plan as above. It is noted that she has a history of depression and is difficult to surmise how much impact this has on her hyperemesis at this time. Her thyroid was checked and was not consistent with thyrotoxicosis. it will likely need to be repeated in the second trimester. At this time she is resting comfortably in her bed. She has no signs or symptoms of infection at this time and is resting comfortably. There are labs done through my office approximately 1 week ago and nothing through those labs stands out as a potential concerning source. May need repeat CMP with UA if she continues to have emesis for reevaluation of electrolyte balance and protein Past Medical History Past Medical History: No Reported History Additional Past Medical History / Comment(s): hyperflexibility of the joints, previous shoulder dislocation History of Any Multi-Drug Resistant Organisms: None Reported Past Surgical History: No Surgical Hx Reported Additional Past Anesthesia/Blood Transfusion Reaction / Comment(s): no hx of blood transfusion, no surgery history. Past Psychological History: ADD/ADHD, Anxiety, Bipolar, Depression, PTSD Smoking Status: Former smoker Past Alcohol Use History: Occasional Past Drug Use History: None Reported - Past Family History Mother Family Medical History: Thyroid Disorder Additional Family Medical History / Comment(s): mom with hypothyroid and hypoglycemia Sister(s) Family Medical History: Asthma Medications and Allergies Home Medications Medication Instructions Recorded Confirmed Type Ondansetron Odt [Zofran Odt] 4 mg PO Q8HR PRN #30 tab 06/22/19 07/23/19 Rx Allergies Allergy/AdvReac Type Severity Reaction Status Date / Time latex Allergy Rash/Hives Verified 07/23/19 15:35 cyclobenzaprine HCl AdvReac HYPER Verified 07/23/19 15:35 [From Flexeril] Exam Osteopathic Statement: *. No significant issues noted on an osteopathic structural exam other than those noted in the History and Physical/Consult. Vital Signs Temp Pulse Resp BP 07/23/19 15:41 98.3 F 92 16 110/68 Intake and Output 07/23/19 07/23/19 07/23/19 06:59 14:59 22:59 Other: Weight 62.596 kg
[2019-07-23 17:55] LABS: ALT 19 U/L (4-34); AST 19 U/L (14-36); African American GFR (CKD) >90 (>60 ml/min/1.73 sqM); Albumin 4.1 g/dL (3.5-5.0); Alkaline Phosphatase 66 U/L (38-126); Anion Gap 12 mmol/L; Blood Urea Nitrogen 3 mg/dL (7-17); Calcium 9.1 mg/dL (8.4-10.2); Carbon Dioxide 20 mmol/L (22-30); Chloride 105 mmol/L (98-107); Glucose 77 mg/dL (74-99); Non-African American GFR(CKD) >90 (>60 ml/min/1.73 sqM); Potassium 3.8 mmol/L (3.5-5.1); Sodium 137 mmol/L (137-145); Total Bilirubin 0.4 mg/dL (0.2-1.3); Total Protein 7.1 g/dL (6.3-8.2)
[2019-07-23 19:38] LABS: Appearance,Urine Clear (Clear); Bacteria,Urine Rare /hpf; Bilirubin,Urine Negative (Negative); Blood,Urine Negative (Negative); Color,Urine Light Yellow; Glucose,Urine (UA) Negative (Negative); Ketones,Urine 1+ (Negative); Leukocyte Esterase,Urine Trace (Negative); Nitrite,Urine Negative (Negative); PH, Urine 6.5 (5.0-8.0); Protein,Urine Negative (Negative); Specific Gravity,Urine 1.005 (1.001-1.035); Squamous Epithelial Cell,Urine <1 /hpf (0-4); Urobilinogen,Urine <2.0 mg/dL (<2.0); WBC,Urine <1 /hpf (0-5)
[2019-07-23] MEDS: SENNOSIDES-DOCUSATE SODIUM 1 EACH TAB PO SCH (20:51)
[2019-07-23] MEDS: FAMOTIDINE 20 MG/2 ML VIAL IV SCH (20:52)
--- NOTE | 2019-07-24 07:24 | P.DS ---
Providers Date of admission: 07/23/19 15:16 Expected date of discharge: 07/24/19 Attending physician: Laz Sahni Primary care physician: Stated None Hospital Course: Patient seen and evaluated. She did not throw up at all last night and did not take any Zofran. Symptoms seem to be much improved. We'll allow her Breakfast This Morning and If She Tolerates a [place] Rectus We'll Discharge Her Later Today. She Is Encouraged to Take Zofran As Needed and Pepcid at Nighttime to Help Decrease Acid Reflux Symptoms. She'll Follow up with Me in 1 Week. Otherwise Colace or Other Stool Softeners Peripherally Fine to Try and Relieve Her Constipation. After Discussing with Her and with Nursing Discussing with Her Dietary Changes It Seems She Has a Better Understanding of What and How to Eat and Hopefully This Will Resolve Much of Her Hyperemesis Symptoms. Patient Condition at Discharge: Good Plan - Discharge Summary New Discharge Prescriptions: No Action Ondansetron Odt [Zofran Odt] 4 mg PO Q8HR PRN #30 tab PRN Reason: Vomiting Discharge Medication List Ondansetron Odt [Zofran Odt] 4 mg PO Q8HR PRN #30 tab 06/22/19 [Rx] Follow up Appointment(s)/Referral(s): Laz Sahni DO [Doctor of Osteopathic Medicine] - 1 Week Activity/Diet/Wound Care/Special Instructions: Return with any significant nausea and vomiting. Okay to also try Pepcid at night Discharge Disposition: HOME SELF-CARE
[2019-07-24 08:49] VITALS: BP 91/43; PULSE 77; RESP 14; TEMP 98.7
[2019-07-24] MEDS: FAMOTIDINE 20 MG/2 ML VIAL IV SCH (09:46)
[2019-07-24] MEDS: SENNOSIDES-DOCUSATE SODIUM 1 EACH TAB PO SCH (09:47)
== END 2019-07-24 10:07 | disposition home or self-care (01) ==
LOC: 4FBP 15:16
PROVIDERS: ADMIT Obstetrics & Gynecology; ATTEND Obstetrics & Gynecology
DX: O21.0 Mild hyperemesis gravidarum (principal); Z3A.10 10 weeks gestation of pregnancy; K59.00 Constipation, unspecified; F41.8 Other specified anxiety disorders; F90.9 Attention-deficit hyperactivity disorder, unspecified type; F43.10 Post-traumatic stress disorder, unspecified; O99.341 Other mental disorders complicating pregnancy, first trimester; F31.9 Bipolar disorder, unspecified; S43.006A Unspecified dislocation of unspecified shoulder joint, initial encounter; Z87.891 Personal history of nicotine dependence; Z82.5 Family history of asthma and other chronic lower respiratory diseases; Z79.899 Other long term (current) drug therapy
CPT/HCPCS: 96376; 96374; 96375; 80053; 81001; G0378 ×2; G0379; J2405

== ENCOUNTER 2019-07-26 03:39 | Emergency (ER) | payer OTHER ==
[2019-07-26 03:48] VITALS: RESP 18; TEMP 97.5
[2019-07-26] MEDS ORDERED: SODIUM CHLORIDE 0.9% 1,000 ML IV ONE (04:15)
--- NOTE | 2019-07-26 04:15 | ED ---
Abdominal Pain HPI - General Chief Complaint: Abdominal Pain Stated Complaint: Abd Pain, 12 wks Time Seen by Provider: 07/26/19 04:04 Source: patient Mode of arrival: ambulatory Limitations: no limitations - History of Present Illness Complaint: abdominal pain Onset/Timin -: hour(s) Location: epigastric Radiation: none Migration to: no migration Severity: moderate Quality: sharp Consistency: intermittent (Lasts about 30 seconds) Improves With: nothing Worsens With: nothing Associated Symptoms: denies other symptoms - Related Data LMP (females 10-50): 3 months Previous Rx's Medication Instructions Recorded Ondansetron Odt [Zofran Odt] 4 mg PO Q8HR PRN #30 tab 06/22/19 Cephalexin [Keflex] 500 mg PO Q6HR #28 cap 07/26/19 Allergies Allergy/AdvReac Type Severity Reaction Status Date / Time latex Allergy Rash/Hives Verified 07/26/19 03:48 cyclobenzaprine HCl AdvReac HYPER Verified 07/26/19 03:48 [From Flexeril] Review of Systems ROS Statement: Those systems with pertinent positive or pertinent negative responses have been documented in the HPI. ROS Other: All systems not noted in ROS Statement are negative. Constitutional: Denies: fever, chills Respiratory: Denies: cough, dyspnea Cardiovascular: Denies: chest pain, palpitations, edema Gastrointestinal: Reports: abdominal pain, nausea. Denies: vomiting, diarrhea, constipation, hematemesis, melena, hematochezia Genitourinary: Denies: dysuria, frequency, hematuria, discharge, abnormal menses Musculoskeletal: Denies: back pain Skin: Denies: rash Neurological: Denies: headache Past Medical History Past Medical History: No Reported History Additional Past Medical History / Comment(s): hyperflexibility of the joints, previous shoulder dislocation History of Any Multi-Drug Resistant Organisms: None Reported Past Surgical History: No Surgical Hx Reported Additional Past Anesthesia/Blood Transfusion Reaction / Comment(s): no hx of blood transfusion, no surgery history. Past Psychological History: ADD/ADHD, Anxiety, Bipolar, Depression, PTSD Smoking Status: Former smoker Past Alcohol Use History: Occasional Past Drug Use History: None Reported - Past Family History Mother Family Medical History: Thyroid Disorder Additional Family Medical History / Comment(s): mom with hypothyroid and hypoglycemia Sister(s) Family Medical History: Asthma General Exam Limitations: no limitations General appearance: alert, in no apparent distress Head exam: Present: atraumatic, normocephalic Eye exam: Present: normal appearance. Absent: scleral icterus, conjunctival injection ENT exam: Present: normal oropharynx Respiratory exam: Present: normal lung sounds bilaterally. Absent: respiratory distress, wheezes, rales, rhonchi, stridor Cardiovascular Exam: Present: regular rate, normal rhythm, normal heart sounds. Absent: systolic murmur, diastolic murmur, rubs, gallop GI/Abdominal exam: Present: soft, normal bowel sounds. Absent: distended, t enderness, guarding, rebound, rigid, mass, pulsatile mass, hernia Extremities exam: Present: normal inspection, normal capillary refill. Absent: pedal edema, calf tenderness Back exam: Present: normal inspection. Absent: CVA tenderness (R), CVA ten derness (L) Neurological exam: Present: alert Skin exam: Present: warm, dry, intact, normal color. Absent: rash Course Vital Signs 07/26/19 03:45 Temperature 97.5 F L Pulse Rate 97 Respiratory 18 Rate Blood Pressure 109/71 O2 Sat by Pulse 98 Oximetry Medical Decision Making - Lab Data Result diagrams: 07/26/19 04:06 07/26/19 04:06 Lab Results 07/26/19 07/26/19 07/26/19 Range/Units 03:50 04:06 04:06 WBC 11.3 H (3.8-10.6) k/uL RBC 4.81 (3.80-5.40) m/uL Hgb 12.5 (11.4-16.0) gm/dL Hct 37.6 (34.0-46.0) % MCV 78.2 L (80.0-100.0) fL MCH 25.9 (25.0-35.0) pg MCHC 33.2 (31.0-37.0) g/dL RDW 13.5 (11.5-15.5) % Plt Count 241 (150-450) k/uL Neutrophils % 82 % Lymphocytes % 11 % Monocytes % 4 % Eosinophils % 2 % Basophils % 0 % Neutrophils # 9.3 H (1.3-7.7) k/uL Lymphocytes # 1.3 (1.0-4.8) k/uL Monocytes # 0.4 (0-1.0) k/uL Eosinophils # 0.2 (0-0.7) k/uL Basophils # 0.0 (0-0.2) k/uL Sodium 136 L (137-145) mmol/L Potassium 4.0 (3.5-5.1) mmol/L Chloride 105 (98-107) mmol/L Carbon Dioxide 20 L (22-30) mmol/L Anion Gap 11 mmol/L BUN 7 (7-17) mg/dL Creatinine 0.45 L (0.52-1.04) mg/dL Est GFR (CKD-EPI)AfAm >90 (>60 ml/min/1.73 sqM) Est GFR (CKD-EPI)NonAf >90 (>60 ml/min/1.73 sqM) Glucose 94 (74-99) mg/dL Calcium 9.6 (8.4-10.2) mg/dL Total Bilirubin 0.6 (0.2-1.3) mg/dL AST 19 (14-36) U/L ALT 15 (4-34) U/L Alkaline Phosphatase 71 (38-126) U/L Total Protein 7.4 (6.3-8.2) g/dL Albumin 4.4 (3.5-5.0) g/dL Amylase 95 (30-110) U/L Lipase 44 (23-300) U/L Urine Color Yellow Urine Appearance Cloudy H (Clear) Urine pH 6.0 (5.0-8.0) Ur Specific [place] 1.027 (1.001-1.035) Urine Protein 1+ H (Negative) Urine Glucose (UA) Negative (Negative) Urine Ketones 2+ H (Negative) Urine Blood Negative (Negative) Urine Nitrite Negative (Negative) Urine Bilirubin Negative (Negative) Urine Urobilinogen 2.0 (<2.0) mg/dL Ur Leukocyte Esterase Large H (Negative) Urine RBC 5 (0-5) /hpf Urine WBC 58 H (0-5) /hpf Ur Squamous Epith Cells 12 H (0-4) /hpf Urine Bacteria Few H (None) /hpf Urine Mucus Many H (None) /hpf Disposition Clinical Impression: Abdominal pain, Urinary tract infection Disposition: HOME SELF-CARE Condition: Good Instructions (If sedation given, give patient instructions): Abdominal Pain (ED), Urinary Tract Infection in (ED) Prescriptions: Cephalexin [Keflex] 500 mg PO Q6HR #28 cap Is patient prescribed a controlled substance at d/c from ED?: No Referrals: Cheryle Banerjee MD [Primary Care Provider] - 1-2 days
[2019-07-26 04:30] LABS: Basophils % (A) 0 %; Eosinophils # (A) 0.2 k/uL (0-0.7); Eosinophils % (A) 2 %; HCT 37.6 % (34.0-46.0); HGB 12.5 gm/dL (11.4-16.0); Lymphocytes # (A) 1.3 k/uL (1.0-4.8); Lymphocytes % (A) 11 %; MCH 25.9 pg (25.0-35.0); MCHC 33.2 g/dL (31.0-37.0); MCV 78.2 fL (80.0-100.0); Mean Platelet Volume 8.9; Monocytes # (A) 0.4 k/uL (0-1.0); Monocytes % (A) 4 %; Neutrophils # (A) 9.3 k/uL (1.3-7.7); Neutrophils % (A) 82 %; Platelet Count 241 k/uL (150-450); RBC 4.81 m/uL (3.80-5.40); RDW 13.5 % (11.5-15.5); WBC 11.3 k/uL (3.8-10.6)
[2019-07-26 04:40] LABS: Appearance,Urine Cloudy (Clear); Bacteria,Urine Few /hpf; Bilirubin,Urine Negative (Negative); Blood,Urine Negative (Negative); Color,Urine Yellow; Glucose,Urine (UA) Negative (Negative); Ketones,Urine 2+ (Negative); Leukocyte Esterase,Urine Large (Negative); Mucus,Urine Many /hpf; Nitrite,Urine Negative (Negative); Protein,Urine 1+ (Negative); RBC,Urine 5 /hpf (0-5); Specific Gravity,Urine 1.027 (1.001-1.035); Squamous Epithelial Cell,Urine 12 /hpf (0-4); WBC,Urine 58 /hpf (0-5)
[2019-07-26 04:41] LABS: ALT 15 U/L (4-34); AST 19 U/L (14-36); African American GFR (CKD) >90 (>60 ml/min/1.73 sqM); Albumin 4.4 g/dL (3.5-5.0); Alkaline Phosphatase 71 U/L (38-126); Amylase 95 U/L (30-110); Anion Gap 11 mmol/L; Blood Urea Nitrogen 7 mg/dL (7-17); Calcium 9.6 mg/dL (8.4-10.2); Carbon Dioxide 20 mmol/L (22-30); Chloride 105 mmol/L (98-107); Glucose 94 mg/dL (74-99); Non-African American GFR(CKD) >90 (>60 ml/min/1.73 sqM); Sodium 136 mmol/L (137-145); Total Bilirubin 0.6 mg/dL (0.2-1.3); Total Protein 7.4 g/dL (6.3-8.2)
[2019-07-26] MEDS ORDERED: cefTRIAXone IN SWFI 1,000 MG/10 ML SYRINGE IVP STA (04:57)
[2019-07-26 05:10] VITALS: BP 132/78; PULSE 80
[2019-07-26 05:31] LABS: HCG,Quantitative Serum 57215.2 mIU/mL
== END 2019-07-26 05:10 | disposition home or self-care (01) ==
LOC: EC 03:39
DX: O23.41 Unspecified infection of urinary tract in pregnancy, first trimester (principal); O99.89 Other specified diseases and conditions complicating pregnancy, childbirth and the puerperium; R10.13 Epigastric pain; Z87.891 Personal history of nicotine dependence; Z88.8 Allergy status to other drugs, medicaments and biological substances; Z91.040 Latex allergy status; Z3A.12 12 weeks gestation of pregnancy; Z53.8 Procedure and treatment not carried out for other reasons
CPT/HCPCS: 99284; 96374; 96361; 36415; 80053; 82150; 83690; 85025; 81001; 84702; J0696

== ENCOUNTER 2019-10-01 18:54 | Outpatient (CLI) | payer OTHER ==
[2019-10-01 20:29] VITALS: BP 117/65; PULSE 90; RESP 16; TEMP 98.1
--- NOTE | 2019-10-01 20:43 | US ---
EXAMINATION TYPE: US OB limited DATE OF EXAM: 10/01/2019 COMPARISON: US CLINICAL HISTORY: DYLAN. DYLAN. Leaking. . EXAM PERFORMED: Transabdominal (TA) GESTATIONAL AGE / DATING Physician Established: (21 weeks/4 days) EDC: 02/07/2020 No growth performed on today?s study per ordering physician SURVEY DYLAN: 15.51 cm Normal Ultrasound evidence of premature rupture of membranes? No HEART RATE: 150 bpm RHYTHM: Normal IMPRESSION: This Limited exam shows normal amount of amniotic fluid.
--- NOTE | 2019-10-03 12:19 | P.MSEPDOC ---
Presenting Problems - Arrival Data Date of Arrival on Unit: 10/01/19 Time of Arrival on Unit: 18:54 Mode of Transport: Ambulatory - Complaint OB-Reason for Admission/Chief Complaint: Rule Out PROM Medical History - Information : 1 Para: 0 Term: 0 : 0 Abortions: Spontaneous or Elective: 0 Number of Living Children: 0 - Gestational Age Gestational Age by JORDI (wks/days): 21 Weeks and 4 Days Review of Systems - Review of Systems Constitutional: No problems Breast: No problems ENT: No problems Cardiovascular: No problems Respiratory: No problems Gastrointestinal: No problems Genitourinary: No problems Musculoskeletal: No problems Neurological: No problems Skin: No problems Vital Signs - Temperature Temperature: 98.1 F Temperature Source: Temporal Artery Scan - Pulse Right Pulse Rate: 90 Pulse Assessment Method: Automatic Cuff - Respirations Respiratory Rate: 16 Oxygen Delivery Method: Room Air - Blood Pressure Right Arm Blood Pressure: 117/65 Blood Pressure Mean: 82 Blood Pressure Source: Automatic Cuff Medical Screen Scoring (Pre) - Cervical Exam Membranes: Intact - Uterine Contractions Frequency: N/A Duration: N/A Intensity: N/A - Maternal Vital Signs Maternal Temperature: N/A Maternal Blood Pressure: N/A Signs of Preeclampsia: N/A Maternal Respirations: N/A - Maternal Trauma Maternal Trauma: N/A - Assessment - Baby A Baseline FHR: 148 Heart Rate - NICHD Category: Category I (Normal) = 0 Position: N/A Station: N/A - Total Score - Baby A Total Score - Baby A: 0 - Total Score - Baby B Total Score - Baby B: 0 - Total Score - Baby C Total Score - Baby C: 0 - Level of Risk - Baby A Level of Risk - Baby A: Low (0-5) - Level of Risk - Baby B Level of Risk - Baby B: Low (0-5) - Level of Risk - Baby C Level of Risk - Baby C: Low (0-5) Physician Notification (Pre) - Physician Notified Physician Notified Date: 10/01/19 Physician Notified Time: 20:20 New Order Received: Yes - Notification Comment Comment: Discharge home, to keep appt as scheduled. Disposition - Disposition OB Disposition: Discharge to home Discharge Date: 10/01/19 Discharge Time: 20:29 I agree with the RN Medical Screening Exam: Yes Risk & Benefit of care provided described in d/c instruction: Yes Diagnosis: RELATED CONDITIONS, UNSPECIFIED, SECOND TRIMESTER
== END 2019-10-01 20:30 | disposition home or self-care (01) ==
LOC: FBPOP 18:54
PROVIDERS: ATTEND Obstetrics & Gynecology
DX: O26.92 Pregnancy related conditions, unspecified, second trimester (principal); Z3A.21 21 weeks gestation of pregnancy
CPT/HCPCS: 76815; G0463; 99213

== ENCOUNTER 2019-11-04 02:48 | Outpatient (CLI) | payer OTHER ==
[2019-11-04 03:55] VITALS: BP 120/73; PULSE 84; RESP 16; TEMP 98.4
--- NOTE | 2019-11-04 10:54 | P.MSEPDOC ---
Presenting Problems - Arrival Data Date of Arrival on Unit: 11/04/19 Time of Arrival on Unit: 02:48 Mode of Transport: Ambulatory - Complaint OB-Reason for Admission/Chief Complaint: Vaginal Bleeding, Observation/Evaluation Comment: Presenting with vaginal bleeding after intercourse. Medical History - Information : 1 Para: 0 Term: 0 : 0 Abortions: Spontaneous or Elective: 0 Number of Living Children: 0 - Gestational Age Gestational Age by JORDI (wks/days): 26 Weeks and 3 Days Review of Systems - Review of Systems Constitutional: No problems Breast: No problems ENT: No problems Cardiovascular: No problems Respiratory: No problems Gastrointestinal: No problems Genitourinary: No problems Musculoskeletal: No problems Neurological: No problems Skin: No problems Vital Signs - Temperature Temperature: 98.4 F Temperature Source: Temporal Artery Scan - Pulse Right Pulse Rate: 84 Pulse Assessment Method: Automatic Cuff - Respirations Respiratory Rate: 16 Oxygen Delivery Method: Room Air O2 Sat by Pulse Oximetry: 98 - Blood Pressure Right Arm Blood Pressure: 120/73 Blood Pressure Mean: 88 Blood Pressure Source: Automatic Cuff Medical Screen Scoring (Pre) - Uterine Contractions Frequency: N/A Duration: N/A Intensity: N/A - Maternal Vital Signs Maternal Temperature: N/A Maternal Blood Pressure: N/A Signs of Preeclampsia: N/A Maternal Respirations: N/A - Maternal Trauma Maternal Trauma: N/A - Assessment - Baby A Baseline FHR: 143 Heart Rate - NICHD Category: Category I (Normal) = 0 Position: N/A Station: N/A - Total Score - Baby A Total Score - Baby A: 0 - Total Score - Baby B Total Score - Baby B: 0 - Total Score - Baby C Total Score - Baby C: 0 - Level of Risk - Baby A Level of Risk - Baby A: Low (0-5) - Level of Risk - Baby B Level of Risk - Baby B: Low (0-5) - Level of Risk - Baby C Level of Risk - Baby C: Low (0-5) Physician Notification (Pre) - Physician Notified Physician Notified Date: 11/04/19 Physician Notified Time: 03:19 New Order Received: Yes Medical Screen Scoring (Post) - Uterine Contractions Frequency: N/A - Maternal Vital Signs Maternal Temperature: N/A Maternal Blood Pressure: N/A Signs of Preeclampsia: N/A Maternal Respirations: N/A - Pain Assessment Pain Scale Used: Numeric (1 - 10) Pain Intensity: 0 - Maternal Trauma Maternal Trauma: N/A - Assessment - Baby A Heart Rate: 135 Heart Rate - NICHD Category: Category I (Normal) = 0 Position: N/A Station: N/A - Total Score Total Score - Baby A: 0 Total Score - Baby B: 0 Total Score - Baby C: 0 - Post Treatment Level of Risk Post Treatment Level of Risk - Baby A: Low (0-5) Post Treatment Level of Risk - Baby B: Low (0-5) Post Treatment Level of Risk - Baby C: Low (0-5) Physician Notification (Post) - Physician Notified Physician Notified Date: 11/04/19 Physician Notified Time: 05:55 Physician/Practitioner Notified:: Renetta New Order Received: Yes - Notification Comment Comment: DC home Disposition - Disposition OB Disposition: Discharge to home Discharge Date: 11/04/19 Discharge Time: 06:07 I agree with the RN Medical Screening Exam: Yes Risk & Benefit of care provided described in d/c instruction: Yes Diagnosis: RELATED CONDITIONS, UNSPECIFIED, SECOND TRIMESTER
== END 2019-11-04 06:05 | disposition home or self-care (01) ==
LOC: FBPOP 02:48
PROVIDERS: ATTEND Obstetrics & Gynecology
DX: O26.92 Pregnancy related conditions, unspecified, second trimester (principal); Z3A.26 26 weeks gestation of pregnancy
CPT/HCPCS: 86900; 86901; 86850; G0463; 99213

== ENCOUNTER 2019-12-20 16:54 | Outpatient (CLI) | payer OTHER ==
[2019-12-20 18:07] LABS: Appearance,Urine Clear (Clear); Bacteria,Urine Few /hpf; Bilirubin,Urine Negative (Negative); Blood,Urine Negative (Negative); Color,Urine Yellow; Glucose,Urine (UA) Negative (Negative); Ketones,Urine Negative (Negative); Leukocyte Esterase,Urine Moderate (Negative); Mucus,Urine Few /hpf; Nitrite,Urine Negative (Negative); PH, Urine 6.5 (5.0-8.0); Protein,Urine Negative (Negative); RBC,Urine <1 /hpf (0-5); Squamous Epithelial Cell,Urine 2 /hpf (0-4); Urobilinogen,Urine <2.0 mg/dL (<2.0); WBC,Urine 5 /hpf (0-5)
[2019-12-20 18:54] VITALS: BP 116/65; PULSE 99; RESP 18; TEMP 98.8
--- NOTE | 2019-12-23 08:55 | P.MSEPDOC ---
Presenting Problems - Arrival Data Date of Arrival on Unit: 12/20/19 Time of Arrival on Unit: 17:05 Mode of Transport: Ambulatory - Complaint OB-Reason for Admission/Chief Complaint: Pain Medical History - Information : 1 Para: 0 Term: 0 : 0 Abortions: Spontaneous or Elective: 0 Number of Living Children: 0 - Gestational Age Gestational Age by JORDI (wks/days): 33 Weeks and 0 Days Review of Systems - Review of Systems Constitutional: No problems Breast: No problems ENT: No problems Cardiovascular: No problems Respiratory: No problems Gastrointestinal: No problems Genitourinary: No problems Musculoskeletal: No problems Neurological: No problems Skin: No problems Vital Signs - Temperature Temperature: 98.8 F Temperature Source: Temporal Artery Scan - Pulse Pulse Oximetery Pulse Rate: 99 Pulse Assessment Method: Pulse Oximetry - Respirations Respiratory Rate: 18 O2 Sat by Pulse Oximetry: 97 - Blood Pressure Right Arm Sitting Blood Pressure: 116/65 Blood Pressure Mean: 82 Blood Pressure Source: Automatic Cuff Medical Screen Scoring (Pre) - Cervical Exam Dilation: 0 cm = 0 Membranes: Intact - Uterine Contractions Frequency: > 5 minutes apart = 1 Duration: N/A Intensity: N/A - Maternal Vital Signs Maternal Temperature: N/A Maternal Blood Pressure: N/A Signs of Preeclampsia: N/A Maternal Respirations: N/A - Maternal Trauma Maternal Trauma: N/A - Assessment - Baby A Baseline FHR: 140 Heart Rate - NICHD Category: Category I (Normal) = 0 NST: Reactive Position: N/A Station: N/A - Total Score - Baby A Total Score - Baby A: 1 - Total Score - Baby B Total Score - Baby B: 1 - Total Score - Baby C Total Score - Baby C: 1 - Level of Risk - Baby A Level of Risk - Baby A: Low (0-5) - Level of Risk - Baby B Level of Risk - Baby B: Low (0-5) - Level of Risk - Baby C Level of Risk - Baby C: Low (0-5) Physician Notification (Pre) - Physician Notified Physician Notified Date: 12/20/19 Physician Notified Time: 18:35 New Order Received: Yes Disposition - Disposition OB Disposition: Discharge to home, Written follow up instructions reviewed Discharge Date: 12/20/19 Discharge Time: 18:40 I agree with the RN Medical Screening Exam: Yes Risk & Benefit of care provided described in d/c instruction: Yes Diagnosis: RELATED CONDITIONS, UNSPECIFIED, THIRD TRIMESTER
== END 2019-12-20 18:40 | disposition home or self-care (01) ==
LOC: RADUSMAIN 16:54 → FBPOP 18:40
PROVIDERS: ATTEND Obstetrics & Gynecology
DX: O99.89 Other specified diseases and conditions complicating pregnancy, childbirth and the puerperium (principal); R10.11 Right upper quadrant pain; Z3A.00 Weeks of gestation of pregnancy not specified
CPT/HCPCS: 59025; 81001; G0463; 99213

== ENCOUNTER 2020-01-25 02:04 | Outpatient (CLI) | payer OTHER ==
[2020-01-25 03:36] VITALS: BP 124/89; PULSE 108; RESP 14; TEMP 98
--- NOTE | 2020-01-25 07:00 | P.MSEPDOC ---
Presenting Problems - Arrival Data Date of Arrival on Unit: 01/25/20 Time of Arrival on Unit: 02:04 Mode of Transport: Ambulatory - Complaint OB-Reason for Admission/Chief Complaint: Rule Out SROM Comment: pt states possible ROM, pelvic pressure and lower mid back pain Medical History - Information : 1 Para: 0 Term: 0 : 0 Abortions: Spontaneous or Elective: 0 Number of Living Children: 0 - Gestational Age Gestational Age by JORDI (wks/days): 38 Weeks and 1 Days Review of Systems - Review of Systems Constitutional: No problems Breast: No problems ENT: No problems Cardiovascular: No problems Respiratory: No problems Gastrointestinal: No problems Genitourinary: No problems Musculoskeletal: No problems Neurological: No problems Skin: No problems Vital Signs - Temperature Temperature: 98 F Temperature Source: Temporal Artery Scan - Pulse Right Pulse Rate: 108 Pulse Assessment Method: Automatic Cuff - Respirations Respiratory Rate: 14 Oxygen Delivery Method: Room Air O2 Sat by Pulse Oximetry: 99 - Blood Pressure Right Arm Blood Pressure: 124/89 Blood Pressure Mean: 100 Blood Pressure Source: Automatic Cuff Medical Screen Scoring (Pre) - Cervical Exam Dilation: 0 cm = 0 Membranes: Intact - Uterine Contractions Frequency: > or = 36 weeks =2 Duration: > 40 seconds = 2 - Maternal Vital Signs Maternal Temperature: N/A Maternal Blood Pressure: N/A Signs of Preeclampsia: N/A Maternal Respirations: N/A - Maternal Trauma Maternal Trauma: N/A - Assessment - Baby A Baseline FHR: 130 Heart Rate - NICHD Category: Category I (Normal) = 0 NST: Reactive - Total Score - Baby A Total Score - Baby A: 4 - Total Score - Baby B Total Score - Baby B: 4 - Total Score - Baby C Total Score - Baby C: 4 - Level of Risk - Baby A Level of Risk - Baby A: Low (0-5) - Level of Risk - Baby B Level of Risk - Baby B: Low (0-5) - Level of Risk - Baby C Level of Risk - Baby C: Low (0-5) Physician Notification (Pre) - Physician Notified Physician Notified Date: 01/25/20 Physician Notified Time: 03:23 New Order Received: Yes - Notification Comment Comment: d/c pt home due to no cervical change in an hour and pt is still dilated the same as she was in the office on Monday Disposition - Disposition OB Disposition: Discharge to home Discharge Date: 01/25/20 Discharge Time: 03:30 I agree with the RN Medical Screening Exam: Yes Risk & Benefit of care provided described in d/c instruction: Yes Diagnosis: FALSE LABOR AT OR AFTER 37 COMPLETED WEEKS OF GESTATION
== END 2020-01-25 03:30 | disposition home or self-care (01) ==
LOC: FBPOP 02:04
PROVIDERS: ATTEND Obstetrics & Gynecology
DX: O47.1 False labor at or after 37 completed weeks of gestation (principal); Z3A.38 38 weeks gestation of pregnancy
CPT/HCPCS: 59025; 84112; G0463; 99213

== ENCOUNTER 2020-01-27 09:58 | Outpatient (CLI) | payer OTHER ==
[2020-01-27 10:54] LABS: Basophils % (A) 0 %; Eosinophils # (A) 0.1 k/uL (0-0.7); Eosinophils % (A) 1 %; HCT 32.9 % (34.0-46.0); HGB 10.6 gm/dL (11.4-16.0); Lymphocytes # (A) 1.7 k/uL (1.0-4.8); Lymphocytes % (A) 22 %; MCH 25.2 pg (25.0-35.0); MCHC 32.2 g/dL (31.0-37.0); MCV 78.3 fL (80.0-100.0); Mean Platelet Volume 10.2; Monocytes # (A) 0.4 k/uL (0-1.0); Monocytes % (A) 6 %; Neutrophils # (A) 5.2 k/uL (1.3-7.7); Neutrophils % (A) 69 %; Platelet Count 207 k/uL (150-450); RDW 14.2 % (11.5-15.5); WBC 7.5 k/uL (3.8-10.6)
[2020-01-27 10:55] LABS: ALT 11 U/L (4-34); AST 16 U/L (14-36); African American GFR (CKD) >90 (>60 ml/min/1.73 sqM); Blood Urea Nitrogen 7 mg/dL (7-17); LDH 279 U/L (313-618); Non-African American GFR(CKD) >90 (>60 ml/min/1.73 sqM); Uric Acid 4.9 mg/dL (3.7-7.4)
[2020-01-27 11:25] LABS: Appearance,Urine Cloudy (Clear); Bacteria,Urine Moderate /hpf; Bilirubin,Urine Negative (Negative); Blood,Urine Trace (Negative); Color,Urine Yellow; Glucose,Urine (UA) Negative (Negative); Hyaline Casts,Urine 1 /lpf (0-2); Ketones,Urine Negative (Negative); Leukocyte Esterase,Urine Large (Negative); Mucus,Urine Occasional /hpf; Nitrite,Urine Negative (Negative); PH, Urine 6.5 (5.0-8.0); Protein,Urine Trace (Negative); RBC,Urine 1 /hpf (0-5); Specific Gravity,Urine 1.017 (1.001-1.035); Squamous Epithelial Cell,Urine 13 /hpf (0-4); Urobilinogen,Urine <2.0 mg/dL (<2.0); WBC,Urine 17 /hpf (0-5)
[2020-01-27 11:50] LABS: Protein/Creatinine Ratio,Urine 0.088
--- NOTE | 2020-01-28 17:27 | P.MSEPDOC ---
Presenting Problems - Arrival Data Date of Arrival on Unit: 01/27/20 Time of Arrival on Unit: 09:58 Mode of Transport: Ambulatory - Complaint OB-Reason for Admission/Chief Complaint: PIH Comment: pt sent over from the office by Dr Sahni for PIH workup Medical History - Information : 1 Para: 0 Term: 0 : 0 Abortions: Spontaneous or Elective: 0 Number of Living Children: 0 - Gestational Age Gestational Age by JORDI (wks/days): 38 Weeks and 3 Days Review of Systems - Review of Systems Constitutional: No problems Breast: No problems ENT: No problems Cardiovascular: No problems Respiratory: No problems Gastrointestinal: No problems Genitourinary: No problems Musculoskeletal: No problems Neurological: No problems Skin: No problems Physician Notification (Pre) - Physician Notified Physician Notified Date: 01/27/20 Physician Notified Time: 11:34 New Order Received: Yes - Notification Comment Comment: discharge pt home, she is coming back on afternoon for cervidil induction Disposition - Disposition OB Disposition: Discharge to home, Written follow up instructions reviewed Discharge Date: 01/27/20 Discharge Time: 11:45 I agree with the RN Medical Screening Exam: Yes Risk & Benefit of care provided described in d/c instruction: Yes Diagnosis: GESTATIONAL HTN W/O SIGNIFICANT PROTEINURIA, THIRD TRIMESTER
== END 2020-01-27 11:45 | disposition home or self-care (01) ==
LOC: FBPOP 09:58
PROVIDERS: ATTEND Obstetrics & Gynecology
DX: O13.3 Gestational [pregnancy-induced] hypertension without significant proteinuria, third trimester (principal); Z3A.38 38 weeks gestation of pregnancy
CPT/HCPCS: 59025; 81001; 82565; 82570; 83615; 84156; 84450; 84460; 84520; 84550; 85025

== ENCOUNTER 2020-01-30 16:04 | Inpatient (IN) | payer OTHER ==
--- NOTE | 2020-01-30 17:09 | P.HPOB ---
History of Present Illness H&P Date: 01/30/20 Chief Complaint: Intrauterine at term: Induction of labor Patient is a 19-year-old at 39 weeks gestation rest for Cervidil ripening and induction of labor. Risks of induction were explained patient in detail including increased risk of section as well as potential with Cervidil to have hyperstimulation requiring emergent section removal of the medication. Her Precis course was complicated by hyperemesis gravidarum in the early part of in which she lost several pounds of weight she did recover well and is continuing to gain weight through the latter part of the . She did have some vaginal bleeding at approximately 26 weeks but this stopped and she has done well through the remainder of the . Her cervix is currently fingertip and 50% effaced -2 station. We'll plan Cervidil ripening this evening with plan for induction in the morning. All the questions are answered for her at this time. Pertinent labs did include O- blood type which she received Juan Daniel gamma 28 weeks Rh antibody was negative. Rubella was immune, hepatitis B surface antigen and RPR were negative group B strep was also negative. Category 1 tracings noted this evening. Past Medical History Past Medical History: No Reported History Additional Past Medical History / Comment(s): hyperflexibility of the joints, previous shoulder dislocation History of Any Multi-Drug Resistant Organisms: None Reported Past Surgical History: No Surgical Hx Reported Additional Past Anesthesia/Blood Transfusion Reaction / Comment(s): no hx of blood transfusion, no surgery history. Smoking Status: Former smoker - Past Family History Mother Family Medical History: Thyroid Disorder Additional Family Medical History / Comment(s): mom with hypothyroid and hypoglycemia Sister(s) Family Medical History: Asthma Medications and Allergies Allergies Allergy/AdvReac Type Severity Reaction Status Date / Time latex Allergy Rash/Hives Verified 01/30/20 16:47 cyclobenzaprine HCl AdvReac HYPER Verified 01/30/20 16:47 [From Flexeril] Exam Osteopathic Statement: *. No significant issues noted on an osteopathic structural exam other than those noted in the History and Physical/Consult. Intake and Output 01/30/20 01/30/20 01/30/20 06:59 14:59 22:59 Other: Weight 71.668 kg - OBG Physical Exam Breast: both: normal (no masses) Abdomen: bowel sounds normal, no diffuse tenderness, no bruit present, no guarding noted, no hepatomegaly, no splenomegaly, no mass Vulva: both: normal Vagina: normal moisture, no discharge Cervix: no lesion, no discharge Uterus: normal size, normal contour Adnexa: both: normal Anus/Rectum: normal perianal skin, no rectal mass, no hemorrhoids, heme negative
[2020-01-30] MEDS ORDERED: DINOPROSTONE 10 MG INSERT.ER VAGINAL ONE (17:11)
[2020-01-30] MEDS ORDERED: BUTORPHANOL 1 MG/ML 1 ML VIAL IV PRN (18:43)
[2020-01-31] MEDS ORDERED: CARBOPROST TROMETHAMINE 250 MCG/ML 1 ML AMP IM PRN (05:56)
[2020-01-31] MEDS ORDERED: TERBUTALINE 1 MG/ML VIAL SQ PRN (05:56)
[2020-01-31] MEDS ORDERED: METHYLERGONOVINE 0.2 MG/ML 1 ML AMP IM PRN (05:56)
[2020-01-31] MEDS ORDERED: LIDOCAINE 0.5% (PF) 5 MG/ML (50 ML SDV) SQ PRN (05:56)
[2020-01-31] MEDS ORDERED: OXYTOCIN 10 UNIT/ML 1 ML VIAL IM PRN (05:56)
[2020-01-31] MEDS ORDERED: OXYTOCIN 30 UNITS/500 ML NS 30 UNIT in SALINE 1 500ML.BAG IV SCH (06:00)
[2020-01-31 06:36] LABS: Basophils % (A) 0 %; Eosinophils # (A) 0.1 k/uL (0-0.7); Eosinophils % (A) 1 %; HCT 33.7 % (34.0-46.0); HGB 10.7 gm/dL (11.4-16.0); Lymphocytes % (A) 19 %; MCH 25.1 pg (25.0-35.0); MCHC 31.8 g/dL (31.0-37.0); MCV 78.7 fL (80.0-100.0); Mean Platelet Volume 10.5; Monocytes # (A) 0.6 k/uL (0-1.0); Monocytes % (A) 6 %; Neutrophils # (A) 7.7 k/uL (1.3-7.7); Neutrophils % (A) 73 %; Platelet Count 219 k/uL (150-450); RBC 4.29 m/uL (3.80-5.40); RDW 14.1 % (11.5-15.5); WBC 10.6 k/uL (3.8-10.6)
[2020-01-31] MEDS: LACTATED RINGERS 1,000 ML IV SCH ×2 (12:22→19:24)
[2020-01-31] MEDS ORDERED: ROPIVACAINE 5MG/ML 20ML VIAL ONE (12:30)
[2020-01-31] MEDS ORDERED: SODIUM CHLORIDE 0.9% 100 ML BAG ONE (12:30)
[2020-01-31] MEDS ORDERED: fentaNYL (PF) 50 MCG/ML 5 ML AMP ONE (12:30)
[2020-01-31] MEDS ORDERED: BENZOCAINE/MENTHOL SPRAY 1 GM/SPRAY AEROSOL TOPICAL PRN (18:18)
[2020-01-31] MEDS ORDERED: diphenhydrAMINE 25 MG CAP PO PRN (18:18)
[2020-01-31] MEDS ORDERED: ZOLPIDEM 5 MG TAB PO PRN (18:18)
[2020-01-31] MEDS ORDERED: LANOLIN CREAM 5 GM TUBE TOPICAL PRN (18:18)
[2020-01-31] MEDS ORDERED: diphenhydrAMINE 50 MG CAP PO PRN (18:18)
[2020-01-31] MEDS ORDERED: HYDROCORTISONE 2.5% RECTAL CREAM 30 GM TUBE RECTAL PRN (18:18)
[2020-01-31] MEDS ORDERED: MEASLES-MUMPS-RUBELLA VACC/PF 12,500 UNIT/0.5 ML VIAL SQ ONE (18:18)
[2020-01-31] MEDS ORDERED: diphenhydrAMINE 50 MG/ML 1 ML VIAL IVP PRN ×2 (18:18)
[2020-01-31] MEDS ORDERED: SIMETHICONE 80 MG CHEWABLE PO PRN (18:18)
[2020-01-31] MEDS ORDERED: ACETAMINOPHEN TAB 325 MG TAB PO PRN (18:18)
--- NOTE | 2020-01-31 18:21 | P.PROBDLV ---
Vaginal Delivery Note - . Vaginal Delivery Note: Patient progressed complete and pushing with spontaneous vaginal delivery of viable male over a first-degree perineal laceration. Following delivery of the head a nuchal cord 2 was noted and easily reduced. Once baby was delivered with antigen gentle downward traction to deliver the anterior shoulder and upper traction deliver the posterior shoulder mouth nares were bulb suctioned and baby was placed on mother's abdomen where the umbilical cord was allowed to pulsate for 30 seconds prior to clamping and cutting. Nursery personnel was present and assumed care. Placenta was then delivered intact and Pitocin was added to the IV. First degree perineal laceration was then repaired with 3-0 Vicryl following 1% Xylocaine for analgesia. It is also noted that she had a right labial avulsion which was also repaired with interrupted 3-0 Vicryl suture. One percent Xylocaine for analgesia. scores were 8 and 9 at one and 5 minutes suspect ligament and the weight was 6 lbs. 10 oz. Both mother and baby are stable following delivery.
[2020-01-31] MEDS ORDERED: OXYTOCIN 20 UNITS/1000 ML NS 1,000 ML IV SCH (18:30)
[2020-01-31] MEDS ORDERED: ONDANSETRON 4 MG/2 ML VIAL IVP STA (18:44)
[2020-01-31] MEDS: IBUPROFEN 600 MG TAB PO PRN (18:58)
[2020-01-31] MEDS: SENNOSIDES-DOCUSATE SODIUM 1 EACH TAB PO SCH (18:59)
[2020-01-31] MEDS: HYDROcodone/APAP 5-325MG 1 EACH TAB PO PRN (21:00)
[2020-02-01] MEDS: IBUPROFEN 600 MG TAB PO PRN ×4 (01:19→23:33)
[2020-02-01] MEDS ORDERED: Rhogam IMMUNE GLOBULIN 1,500 UNIT/1 ML IM ONE (01:20)
[2020-02-01 06:27] LABS: Basophils % (A) 0 %; Eosinophils # (A) 0.1 k/uL (0-0.7); Eosinophils % (A) 1 %; HCT 25.9 % (34.0-46.0); Lymphocytes % (A) 18 %; MCH 24.9 pg (25.0-35.0); MCHC 31.8 g/dL (31.0-37.0); MCV 78.1 fL (80.0-100.0); Mean Platelet Volume 10.3; Monocytes # (A) 0.5 k/uL (0-1.0); Monocytes % (A) 5 %; Neutrophils # (A) 8.3 k/uL (1.3-7.7); Neutrophils % (A) 75 %; Platelet Count 173 k/uL (150-450); RBC 3.32 m/uL (3.80-5.40); RDW 14.1 % (11.5-15.5); WBC 11.2 k/uL (3.8-10.6)
[2020-02-01 06:42] LABS: HGB 8.3 gm/dL (11.4-16.0)
[2020-02-01 09:14] VITALS: RESP 16
--- NOTE | 2020-02-01 10:55 | P.DS ---
Providers Date of admission: 01/30/20 16:04 Expected date of discharge: 02/01/20 Attending physician: Laz Sahni Primary care physician: Stated None Hospital Course: Patient is a 19-year-old female who is day 1. She is requesting discharge home today. Her vital signs are stable and afebrile. Heart regular, lungs clear, extremities without pain. Abdomen soft uterus is firm and lochia is reported to be light. She is having some pain still both in around her vagina and at her epidural site but she did have a laceration that was repaired. She is requesting Motrin and Harrison for home medication. She is bottlefeeding. We did discuss her continued to stay in the hospital mother Richard she declines and wants to go home tonight.'s long as everything remain stable through the baby. That's a safe plan and will follow up with me in 6 weeks. All the questions are answered for her and her discharge instructions were thoroughly reviewed. We'll plan discharged home tonight. Patient Condition at Discharge: Good Plan - Discharge Summary Follow up Appointment(s)/Referral(s): Laz Sahni DO [Doctor of Osteopathic Medicine] - 6 Weeks Activity/Diet/Wound Care/Special Instructions: No heavy lifting, limit stairs and driving, and pelvic rest. If any high temperatures, heavy bleeding, or severe pain call my office Discharge Disposition: HOME SELF-CARE
--- NOTE | 2020-02-01 12:22 | P.PN ---
Progress Note - Text Progress Note Date: 02/01/20 Was going to visit the patient prior to discharge when her mom relates that she has chest pain and shortness of breath when ambulating. I discussed with her and she relates that the symptoms just started approximately 2 hours ago with and it is only when she stands up to ambulate. She relates that standing up and walking has clustered of chest pain and she'll short of breath and needed to sit down. On physical exam her heart is still regular and her lungs are clear her abdomen is soft her extremities are without pain is no redness hotness or other sign of DVT she is not have any dyspnea and she is not to Make and she has irregular heart rate we'll order an EKG as a precaution orthostatic pressures and a CBC in and plan to monitor her through the day rather than discharge her to home today. If any other changes occur she may need troponins or a chest x- ray to rule out other possible sources for her chest pain.
--- NOTE | 2020-02-01 13:04 | XR ---
EXAMINATION TYPE: XR chest 2V DATE OF EXAM: 02/01/2020 HISTORY: chest pain. REFERENCE: Previous study dated 11/09/2018. FINDINGS: The lungs are clear. Pleural spaces are clear. Heart size is within normal limits. IMPRESSION: NORMAL CHEST.
[2020-02-01 18:29] LABS: Basophils % (A) 0 %; Eosinophils # (A) 0.1 k/uL (0-0.7); Eosinophils % (A) 1 %; HCT 29.1 % (34.0-46.0); HGB 9.1 gm/dL (11.4-16.0); Hypochromasia Slight; Lymphocytes # (A) 1.9 k/uL (1.0-4.8); Lymphocytes % (A) 17 %; MCHC 31.4 g/dL (31.0-37.0); MCV 79.6 fL (80.0-100.0); Mean Platelet Volume 11.2; Monocytes # (A) 0.6 k/uL (0-1.0); Monocytes % (A) 5 %; Neutrophils # (A) 8.5 k/uL (1.3-7.7); Neutrophils % (A) 76 %; Platelet Count 200 k/uL (150-450); RBC 3.66 m/uL (3.80-5.40); RDW 14.3 % (11.5-15.5); WBC 11.1 k/uL (3.8-10.6)
[2020-02-01] MEDS: SENNOSIDES-DOCUSATE SODIUM 1 EACH TAB PO SCH (19:36)
[2020-02-02] MEDS: HYDROcodone/APAP 5-325MG 1 EACH TAB PO PRN (05:41)
[2020-02-02] MEDS: SENNOSIDES-DOCUSATE SODIUM 1 EACH TAB PO SCH (07:54)
[2020-02-02] MEDS: IBUPROFEN 600 MG TAB PO PRN (07:54)
[2020-02-02 08:24] VITALS: BP 135/84; PULSE 106; TEMP 97
--- NOTE | 2020-02-02 10:30 | P.DS ---
Providers Date of admission: 01/30/20 16:04 Expected date of discharge: 02/02/20 Attending physician: Laz Sahni Primary care physician: Stated None Hospital Course: Doing much better today. She is involuting, voiding and tolerating her diet. She voices no complaints and relates that the shortness of breath and chest discomfort from yesterday has completely resolved. We'll discharge her to home today with the same instructions. She'll follow up with me in 6 weeks. All other questions are answered for her at this time and she is stable for discharge this time. Patient Condition at Discharge: Good Plan - Discharge Summary New Discharge Prescriptions: New Ibuprofen [Motrin] 600 mg PO Q6HR PRN #30 tab PRN Reason: Pain HYDROcodone/APAP 5-325MG [[place] 5-325] 1 tab PO Q4HR PRN #30 tab PRN Reason: Pain Discharge Medication List HYDROcodone/APAP 5-325MG [[place] 5-325] 1 tab PO Q4HR PRN #30 tab 02/01/20 [Rx] Ibuprofen [Motrin] 600 mg PO Q6HR PRN #30 tab 02/01/20 [Rx] Follow up Appointment(s)/Referral(s): Laz Sahni DO [Doctor of Osteopathic Medicine] - 6 Weeks Activity/Diet/Wound Care/Special Instructions: No heavy lifting, limit stairs and driving, and pelvic rest. If any high temperatures, heavy bleeding, or severe pain call my office Discharge Disposition: HOME SELF-CARE
== END 2020-02-02 12:30 | disposition home or self-care (01) | DRG 807 ==
LOC: 4FBP 16:04
PROVIDERS: ADMIT Obstetrics & Gynecology; ATTEND Obstetrics & Gynecology
PROC: 3E0P7VZ Introduction of Hormone into Female Reproductive, Via Natural or Artificial Opening (ICD-10-PCS; 2020-01-30)
PROC: 0HQ9XZZ Repair Perineum Skin, External Approach (ICD-10-PCS; principal; 2020-01-31)
PROC: 10E0XZZ Delivery of Products of Conception, External Approach (ICD-10-PCS; principal; 2020-01-31)
PROC: 3E0R3BZ Introduction of Anesthetic Agent into Spinal Canal, Percutaneous Approach (ICD-10-PCS; 2020-01-31)
PROC: 00HU33Z Insertion of Infusion Device into Spinal Canal, Percutaneous Approach (ICD-10-PCS; 2020-01-31)
DX: O69.81X0 Labor and delivery complicated by cord around neck, without compression, not applicable or unspecified (principal); Z37.0 Single live birth; O70.0 First degree perineal laceration during delivery; Z3A.39 39 weeks gestation of pregnancy; Z82.5 Family history of asthma and other chronic lower respiratory diseases; Z87.891 Personal history of nicotine dependence; R07.9 Chest pain, unspecified; R06.02 Shortness of breath; Z88.8 Allergy status to other drugs, medicaments and biological substances; Z91.040 Latex allergy status
CPT/HCPCS: 71046; 85025; 85461; 86850; 86870; 86880; 86900; 86901; 93005

== ENCOUNTER → 2020-08-21 | Outpatient (CLI) | payer OTHER ==
--- NOTE | 2020-08-22 06:55 | US ---
EXAMINATION TYPE: Transabdominal DATE OF EXAM: 08/21/2020 4:45 PM COMPARISON: NONE CLINICAL HISTORY: Z36 CONFIRM DATES. EXAM PERFORMED: EXAM MEASUREMENTS: GESTATIONAL AGE / DATING Physician Established: Not yet established Dates by LMP: (9 weeks/2 days) EDC: 03/24/21 Dates by First Scan: No previous this is first scan Dates by Current Scan for: ( 9 weeks/3 days) EDC: 03-23-21 MATERNAL ANATOMY Uterus: 8.2 x 6.4 x 9.6cm Right Ovary: 2.5 x 2.0 x 2.1cm Left Ovary: 2.9 x 1.1 x 1.9cm Post CDS / Adnexa: wnl Presence of free fluid: no GESTATION / SURVEY CRL: 2.6 (9 weeks/3 days) Yolk Sac (normal less than 6mm): 0.4cm Heart Rate: 177 bpm Rhythm: Normal IUP: Viable IUP Date of LMP: 06/17/20 IMPRESSION: Single viable intrauterine .
== END | disposition home or self-care (01) ==
LOC: RADUSWWP 16:22
PROVIDERS: ATTEND Obstetrics & Gynecology
DX: Z36.9 Encounter for antenatal screening, unspecified (principal)
CPT/HCPCS: 76801

== ENCOUNTER 2020-09-11 19:30 | Emergency (ER) | payer OTHER ==
[2020-09-11 19:36] VITALS: BP 136/81; PULSE 100; RESP 18; TEMP 99.2
--- NOTE | 2020-09-11 20:00 | ED ---
Skin/Abscess/FB HPI - General Chief complaint: Skin/Abscess/Foreign Body Stated complaint: hemorrhoid Time Seen by Provider: 09/11/20 19:39 Source: patient Mode of arrival: ambulatory Limitations: no limitations - History of Present Illness Initial comments: Patient is a 20-year-old female presenting to the emergency Department with complaints of a possible hemorrhoid. Patient states she is currently 12 weeks , has been dealing with intermittent constipation, she had a hard bowel movement today and then had a little blood in her rectum when she wiped. Patient states she also has been having some burning throughout today and is concerned so she came into the ER for evaluation. Patient states she delivered her first child 7 months ago, she is currently 12 weeks . She denies any abdominal pain, no nausea or vomiting, no hematuria, or vaginal bleeding. After her first she did have a fissure, did heal up appropriately. She has no further complaints at this time. Upon arrival to the ER, her vitals are stable. - Related Data Previous Rx's Medication Instructions Recorded HYDROcodone/APAP 5-325MG [[place] 1 tab PO Q4HR PRN #30 tab 02/01/20 5-325] Ibuprofen [Motrin] 600 mg PO Q6HR PRN #30 tab 02/01/20 Allergies Allergy/AdvReac Type Severity Reaction Status Date / Time latex Allergy Rash/Hives Verified 09/11/20 19:36 cyclobenzaprine HCl AdvReac HYPER Verified 09/11/20 19:36 [From Flexeril] Review of Systems ROS Statement: Those systems with pertinent positive or pertinent negative responses have been documented in the HPI. ROS Other: All systems not noted in ROS Statement are negative. Past Medical History Past Medical History: No Reported History Additional Past Medical History / Comment(s): hyperflexibility of the joints, previous shoulder dislocation History of Any Multi-Drug Resistant Organisms: None Reported Past Surgical History: No Surgical Hx Reported Additional Past Anesthesia/Blood Transfusion Reaction / Comment(s): no hx of blood transfusion, no surgery history. Past Psychological History: ADD/ADHD, Anxiety, Bipolar, Depression, PTSD Smoking Status: Former smoker Past Alcohol Use History: None Reported Past Drug Use History: None Reported - Past Family History Mother Family Medical History: Thyroid Disorder Additional Family Medical History / Comment(s): mom with hypothyroid and hypoglycemia Sister(s) Family Medical History: Asthma General Exam - General Exam Comments Initial Comments: GENERAL: Patient is well-developed and well-nourished. Patient is nontoxic and in no acute distress. HEAD: Atraumatic, normocephalic. EYES: Pupils equal round and reactive to light, extraocular movements intact, sclera anicteric, conjunctiva are normal. Eyelids were unremarkable. ENT: Nares patent, oropharynx clear without exudates. Moist mucous membranes. NECK: Normal range of motion, supple without lymphadenopathy or JVD. LUNGS: Unlabored respirations. Breath sounds clear to auscultation bilaterally and equal. No wheezes rales or rhonchi. HEART: Regular rate and rhythm without murmurs, rubs or gallops. ABDOMEN: Soft, nontender, normoactive bowel sounds. No guarding, no rebound. No masses appreciated. MUSCULOSKELETAL: Normal extremities with adequate strength and normal range of motion, no pitting or edema. No clubbing or cyanosis. NEUROLOGICAL: Patient is alert and oriented x 3. Symmetrical smile. Normal speech, normal gait. PSYCH: Normal mood, normal affect. SKIN: Warm, Dry, normal turgor, no rashes or lesions noted. Limitations: no limitations Rectal exam: Present: normal rectal tone, hemorrhoids (Small external hemorrhoid present, very small tear present as well.) Course Vital Signs 09/11/20 19:31 Temperature 99.2 F Pulse Rate 100 Respiratory 18 Rate Blood Pressure 136/81 O2 Sat by Pulse 98 Oximetry Medical Decision Making - Medical Decision Making Patient is a 20-year-old female presenting concerned of a possible hemorrhoid. She is currently 12 weeks , stenting constipation and had some burning after bowel movement today. On exam, she does have a small external hemorrhoid present as well as a very small tear. I discussed with patient that she should do warm baths, stool softener, increase her water intake. She can also try witch thalia pads for relief. She can follow up with her [facility] [employer]. Patient is stable for discharge. Patient is in agreement with this plan of care. Return parameters were discussed with the patient and they verbalized understanding. Case discussed with Dr. Garcia Disposition Clinical Impression: Hemorrhoid, Anal fissure Disposition: HOME SELF-CARE Condition: Stable Instructions (If sedation given, give patient instructions): Hemorrhoids (ED) Additional Instructions: Please return to the Emergency Department if symptoms worsen or any other concerns. Recommend warm baths for soothing and relief. Recommend stool softeners, witch thalia pads. Follow-up with her [facility] [employer] HEL[facility]. Is patient prescribed a controlled substance at d/c from ED?: No Referrals: Kevin Bautista MD [Primary Care Provider] - 1-2 days
== END 2020-09-11 20:16 | disposition home or self-care (01) ==
LOC: EC 19:30
DX: O22.41 Hemorrhoids in pregnancy, first trimester (principal); O99.611 Diseases of the digestive system complicating pregnancy, first trimester; F31.9 Bipolar disorder, unspecified; K60.2 Anal fissure, unspecified; Z3A.12 12 weeks gestation of pregnancy; Z87.891 Personal history of nicotine dependence
CPT/HCPCS: 99282

== ENCOUNTER 2020-11-17 07:38 | Outpatient (CLI) | payer OTHER ==
[2020-11-17] MEDS ORDERED: ONDANSETRON 4 MG/2 ML VIAL IVP STA (08:25)
[2020-11-17] MEDS: LACTATED RINGERS 1,000 ML IV SCH ×3 (08:41→10:26)
[2020-11-17 08:53] LABS: Appearance,Urine Cloudy (Clear); Bacteria,Urine Rare /hpf; Bilirubin,Urine Negative (Negative); Blood,Urine Negative (Negative); Color,Urine Yellow; Glucose,Urine (UA) Negative (Negative); Ketones,Urine 4+ (Negative); Leukocyte Esterase,Urine Small (Negative); Mucus,Urine Many /hpf; Nitrite,Urine Negative (Negative); Protein,Urine 1+ (Negative); RBC,Urine 2 /hpf (0-5); Squamous Epithelial Cell,Urine 6 /hpf (0-4); Urobilinogen,Urine <2.0 mg/dL (<2.0); WBC,Urine 7 /hpf (0-5)
[2020-11-17 09:54] VITALS: BP 112/66; PULSE 117; RESP 16; TEMP 97.8
--- NOTE | 2020-11-17 18:17 | P.MSEPDOC ---
Presenting Problems - Arrival Data Date of Arrival on Unit: 11/17/20 Time of Arrival on Unit: 07:38 Mode of Transport: Ambulatory - Complaint OB-Reason for Admission/Chief Complaint: Acute Nausea/Vomiting Comment: nausea,diarrhea and vomiting since 2100 last night Medical History - Information : 2 Para: 1 Term: 1 : 0 Abortions: Spontaneous or Elective: 0 Number of Living Children: 1 - Gestational Age Gestational Age by JORDI (wks/days): 21 Weeks and 6 Days - History Complications: Smoker Review of Systems - Review of Systems Constitutional: No problems Breast: No problems ENT: No problems Cardiovascular: No problems Respiratory: No problems Gastrointestinal: Diarrhea Genitourinary: No problems Musculoskeletal: No problems Neurological: No problems Skin: No problems Vital Signs - Temperature Temperature: 97.8 F Temperature Source: Temporal Artery Scan - Pulse Right Brachial Pulse Rate: 117 Pulse Assessment Method: Pulse Oximetry - Respirations Respiratory Rate: 16 Oxygen Delivery Method: Room Air O2 Sat by Pulse Oximetry: 98 - Blood Pressure Right Arm Sitting Blood Pressure: 112/66 Blood Pressure Mean: 81 Blood Pressure Source: Automatic Cuff Medical Screen Scoring (Pre) - Cervical Exam Dilation: Exam Deferred Effacement: Exam Deferred Membranes: Intact - Uterine Contractions Frequency: N/A Duration: N/A Intensity: N/A - Maternal Vital Signs Maternal Temperature: N/A Maternal Blood Pressure: N/A Signs of Preeclampsia: N/A Maternal Respirations: N/A - Maternal Trauma Maternal Trauma: N/A - Assessment - Baby A Heart Rate - NICHD Category: Category I (Normal) = 0 Position: N/A Station: N/A - Total Score - Baby A Total Score - Baby A: 0 - Total Score - Baby B Total Score - Baby B: 0 - Total Score - Baby C Total Score - Baby C: 0 - Level of Risk - Baby A Level of Risk - Baby A: Low (0-5) - Level of Risk - Baby B Level of Risk - Baby B: Low (0-5) - Level of Risk - Baby C Level of Risk - Baby C: Low (0-5) Disposition - Disposition OB Disposition: Triage, Discharge to home I agree with the RN Medical Screening Exam: Yes Case reviewed; plan agreed upon as documented in EMR&OBIX.: Yes Diagnosis: VOMITING OF , UNSPECIFIED
== END 2020-11-17 12:00 | disposition home or self-care (01) ==
LOC: FBPOP 07:38
PROVIDERS: ATTEND Obstetrics & Gynecology
DX: O21.9 Vomiting of pregnancy, unspecified (principal); O99.332 Smoking (tobacco) complicating pregnancy, second trimester; F17.200 Nicotine dependence, unspecified, uncomplicated; Z3A.21 21 weeks gestation of pregnancy; Z91.040 Latex allergy status; Z88.2 Allergy status to sulfonamides
CPT/HCPCS: 96361; 96374; 81001; 87635; G0463; J2405; 99214

== ENCOUNTER 2020-12-21 14:21 | Outpatient (CLI) | payer OTHER ==
--- NOTE | 2020-12-21 15:35 | US ---
EXAMINATION TYPE: US OB limited DATE OF EXAM: 12/21/2020 COMPARISON: 08/21/2020 CLINICAL HISTORY: u/s for cervical length, 26 wks,cramping and press. No leakage. Cramping. EXAM PERFORMED: Transabdominal (TA) GESTATIONAL AGE / DATING Physician Established: (26 weeks/5 days) EDC: 03/24/2021 No growth performed on today?s study per ordering physician SURVEY CERVICAL LENGTH (transabdominal: norm > 3.0cm): 3.6 cm Ultrasound evidence of cervical incompetence? no PRESENTATION: Vertex HEART RATE: 167 bpm RHYTHM: Normal This is not an anatomic survey. IMPRESSION: Single live intrauterine . Cervical length measures 3.6 cm.
[2020-12-21 16:25] VITALS: BP 101/57; PULSE 85; RESP 14; TEMP 96.8
--- NOTE | 2021-01-02 12:37 | P.MSEPDOC ---
Presenting Problems - Arrival Data Date of Arrival on Unit: 12/21/20 Time of Arrival on Unit: 14:21 Mode of Transport: Ambulatory - Complaint OB-Reason for Admission/Chief Complaint: Pain Comment: pressure Medical History - Information : 2 Para: 1 Term: 1 : 0 Abortions: Spontaneous or Elective: 0 Number of Living Children: 1 - Gestational Age Gestational Age by JORDI (wks/days): 26 Weeks and 5 Days Review of Systems - Review of Systems Constitutional: No problems Breast: No problems ENT: No problems Cardiovascular: No problems Respiratory: No problems Gastrointestinal: No problems Genitourinary: No problems Musculoskeletal: No problems Neurological: No problems Skin: No problems Vital Signs - Temperature Temperature: 96.8 F Temperature Source: Tympanic - Pulse Right Brachial Pulse Rate: 85 Pulse Assessment Method: Automatic Cuff - Respirations Respiratory Rate: 14 Oxygen Delivery Method: Room Air - Blood Pressure Right Arm Blood Pressure: 101/57 Blood Pressure Mean: 71 Blood Pressure Source: Automatic Cuff Medical Screen Scoring - Cervical Exam Membranes: Intact - Assessment - Baby A Baseline FHR: 145 Heart Rate - NICHD Category: Category I (Normal) NST: Reactive Physician Notification - Physician Notified Physician Notified Date: 12/21/20 Physician Notified Time: 16:00 Physician: Laz Sahni Order Received: Yes - Notification Comment Comment: d/c home Maternal Triage Index - Maternal Triage Index Presenting for scheduled procedure w/no complaint: No - Stat/Priority 1 Stat Priority 1: No - Urgent/Priority 2 Urgent Priority 2: No - Prompt/Priority 3 Prompt Priority 3: No - Non-Urgent/Priority 4 Non-Urgent Priority 4: Yes Criteria Met for Priority 4: common discomforts of Disposition - Disposition OB Disposition: Discharge to home Discharge Date: 12/21/20 Discharge Time: 16:00 I agree with the RN Medical Screening Exam: Yes Case reviewed; plan agreed upon as documented in EMR&OBIX.: Yes Diagnosis: FALSE LABOR BEFORE 37 COMPLETED WEEKS OF GEST, SECOND TRI
== END 2020-12-21 16:00 | disposition home or self-care (01) ==
LOC: FBPOP 14:21
PROVIDERS: ATTEND Obstetrics & Gynecology
DX: O47.02 False labor before 37 completed weeks of gestation, second trimester (principal); Z3A.26 26 weeks gestation of pregnancy; Z88.2 Allergy status to sulfonamides; Z91.040 Latex allergy status
CPT/HCPCS: 82731; 76815; G0463; 99213

== ENCOUNTER 2021-01-26 13:21 | Outpatient (CLI) | payer OTHER ==
[2021-01-26 14:23] VITALS: BP 118/64; PULSE 82; RESP 16; TEMP 98.2
--- NOTE | 2021-02-06 13:10 | P.MSEPDOC ---
Presenting Problems - Arrival Data Date of Arrival on Unit: 01/26/21 Time of Arrival on Unit: 13:21 Mode of Transport: Ambulatory - Complaint OB-Reason for Admission/Chief Complaint: Decreased Movement Medical History - Information : 2 Para: 1 Term: 1 : 0 Abortions: Spontaneous or Elective: 0 Number of Living Children: 1 - Gestational Age Gestational Age by JORDI (wks/days): 31 Weeks and 6 Days Review of Systems - Review of Systems Constitutional: No problems Breast: No problems ENT: No problems Cardiovascular: No problems Respiratory: No problems Gastrointestinal: No problems Genitourinary: No problems Musculoskeletal: No problems Neurological: No problems Skin: No problems Vital Signs - Temperature Temperature: 98.2 F Temperature Source: Temporal Artery Scan - Pulse Right Pulse Rate: 82 Pulse Assessment Method: Automatic Cuff - Respirations Respiratory Rate: 16 Oxygen Delivery Method: Room Air O2 Sat by Pulse Oximetry: 99 - Blood Pressure Right Arm Blood Pressure: 118/64 Blood Pressure Mean: 82 Blood Pressure Source: Automatic Cuff Medical Screen Scoring - Cervical Exam Membranes: Intact - Assessment - Baby A Baseline FHR: 140 Heart Rate - NICHD Category: Category I (Normal) NST: Reactive Physician Notification - Physician Notified Physician Notified Date: 01/26/21 Physician Notified Time: 14:00 Physician: Sisi Lopez New Order Received: Yes (discharge home) Maternal Triage Index - Maternal Triage Index Presenting for scheduled procedure w/no complaint: No - Stat/Priority 1 Stat Priority 1: No - Urgent/Priority 2 Urgent Priority 2: Yes Provider Notified: Sisi Lopez Provider Notified Time: 14:10 Criteria Met for Priority 2: NST reactive - Prompt/Priority 3 Prompt Priority 3: No - Non-Urgent/Priority 4 Non-Urgent Priority 4: No - Scheduled/Requesting Priority 5 Scheduled/Requesting Priority 5: No Disposition - Disposition OB Disposition: Discharge to home Discharge Date: 01/26/21 Discharge Time: 14:20 I agree with the RN Medical Screening Exam: Yes Case reviewed; plan agreed upon as documented in EMR&OBIX.: Yes Diagnosis: RELATED CONDITIONS, UNSPECIFIED, THIRD TRIMESTER
== END 2021-01-26 14:20 | disposition home or self-care (01) ==
LOC: FBPOP 13:21
PROVIDERS: ATTEND Obstetrics & Gynecology
DX: O36.8130 Decreased fetal movements, third trimester, not applicable or unspecified (principal); Z3A.31 31 weeks gestation of pregnancy; Z91.040 Latex allergy status; Z88.8 Allergy status to other drugs, medicaments and biological substances
CPT/HCPCS: 59025; G0463; 99213

== ENCOUNTER 2021-02-10 15:09 | Observation (INO) | payer OTHER ==
[2021-02-10 15:34] LABS: Glucose,Whole Blood 102 mg/dL (75-99)
[2021-02-10 15:36] LABS: Appearance,Urine Cloudy (Clear); Bacteria,Urine Occasional /hpf; Bilirubin,Urine Negative (Negative); Blood,Urine Negative (Negative); Budding Yeast,Urine Occasional /hpf; Color,Urine Yellow; Glucose,Urine (UA) Negative (Negative); Ketones,Urine Negative (Negative); Leukocyte Esterase,Urine Large (Negative); Mucus,Urine Many /hpf; Nitrite,Urine Negative (Negative); PH, Urine 6.5 (5.0-8.0); Protein,Urine 1+ (Negative); RBC,Urine 2 /hpf (0-5); Specific Gravity,Urine 1.022 (1.001-1.035); Squamous Epithelial Cell,Urine 7 /hpf (0-4); WBC,Urine 26 /hpf (0-5)
[2021-02-10 15:53] LABS: Creatinine,Urine Random 180.3 mg/dL; Protein/Creatinine Ratio,Urine 0.055
[2021-02-10 16:03] LABS: Amphetamine Screen,Urine Not Detected (NotDetected); Barbiturate Screen,Urine Not Detected (NotDetected); Benzodiazepines Screen,Urine Not Detected (NotDetected); Cocaine Screen,Urine Not Detected (NotDetected); Methadone Screen, Urine Not Detected (NotDetected); Opiate Screen,Urine Not Detected (NotDetected); Oxycodone Screen, Urine Not Detected (NotDetected); Phencyclidine Screen,Urine Not Detected (NotDetected); Tricyclic Antidepressant,Urine Not Detected (NotDetected); Urn Cannabinoid Scrn Not Detected (NotDetected)
[2021-02-10 16:12] LABS: Basophils % (A) 0 %; Eosinophils # (A) 0.1 k/uL (0-0.7); Eosinophils % (A) 1 %; HCT 30.5 % (34.0-46.0); Hypochromasia Slight; Lymphocytes # (A) 1.6 k/uL (1.0-4.8); Lymphocytes % (A) 22 %; MCH 25.2 pg (25.0-35.0); MCHC 32.9 g/dL (31.0-37.0); MCV 76.6 fL (80.0-100.0); Mean Platelet Volume 10.2; Microcytosis Slight; Monocytes # (A) 0.4 k/uL (0-1.0); Monocytes % (A) 6 %; Neutrophils # (A) 5.2 k/uL (1.3-7.7); Neutrophils % (A) 69 %; Platelet Count 217 k/uL (150-450); Poikilocytosis Slight; RBC 3.98 m/uL (3.80-5.40); RDW 14.9 % (11.5-15.5); WBC 7.5 k/uL (3.8-10.6)
[2021-02-10 16:39] LABS: ALT 14 U/L (4-34); AST 21 U/L (14-36); African American GFR (CKD) >90 (>60 ml/min/1.73 sqM); Albumin 3.7 g/dL (3.5-5.0); Alkaline Phosphatase 139 U/L (38-126); Anion Gap 9 mmol/L; Blood Urea Nitrogen 6 mg/dL (7-17); Calcium 8.6 mg/dL (8.4-10.2); Carbon Dioxide 21 mmol/L (22-30); Chloride 106 mmol/L (98-107); Glucose 90 mg/dL (74-99); LDH 339 U/L (313-618); Non-African American GFR(CKD) >90 (>60 ml/min/1.73 sqM); Potassium 3.7 mmol/L (3.5-5.1); Sodium 136 mmol/L (137-145); Total Bilirubin 0.3 mg/dL (0.2-1.3); Total Protein 6.5 g/dL (6.3-8.2); Uric Acid 3.5 mg/dL (3.7-7.4)
[2021-02-10 18:38] VITALS: RESP 16
--- NOTE | 2021-02-11 07:26 | P.HPOB ---
History of Present Illness H&P Date: 02/11/21 Chief Complaint: Urine at 34 weeks with dizziness Patient is a 20-year-old at 34 weeks who has been having worsening dizziness or last couple of weeks. Symptoms began slowly with just mild dizziness and lightheadedness as she progressed through the day. There is no attachment to any specific movement or exercise and there was no specific attachment to laying flat as any postural hypertensive hypotension of . It is unclear what the etiology for this significant amount of dizziness is. She relates that on occasion she's been driving had pullover due to how significantly dizzy she is and this is created significant limitations for her and problems and presents a risk to her personal safety. I saw her last week or 2 weeks ago and she was referred to cardiology for near-syncope cardiology is found no reason for her symptoms at this time either. In seeing her in the office yesterday she relates the symptoms seem to be progressing even more and she is admitted for observation and neurology consultation. Her course otherwise hasn't had any significant issues and other than the dizziness she is voicing no complaints. She does have good movement and her nonstress test was reactive. No cigarette findings of elective light imbalance were noted and her glucose was 102 her urine sample wall does have some white blood cells is contented by 7 squamous epithelial cells and she voices no complaints of a UTI. We'll plan to wait neurologic consultation and decide further treatments moving forward. All the questions are answered for this time Past Medical History Past Medical History: No Reported History Additional Past Medical History / Comment(s): hyperflexibility of the joints, previous shoulder dislocation History of Any Multi-Drug Resistant Organisms: None Reported Past Surgical History: No Surgical Hx Reported Additional Past Anesthesia/Blood Transfusion Reaction / Comment(s): no hx of blood transfusion, no surgery history. Past Psychological History: ADD/ADHD, Anxiety, Bipolar, Depression, PTSD Additional Psychological History / Comment(s): concerta 30mg daily -not currently taking Smoking Status: Former smoker Past Alcohol Use History: None Reported Past Drug Use History: None Reported Additional Drug Use History / Comment(s): Was using marijuanna periodically, not current. Drinks 1 drink a month. smoked here and there not any more. - Past Family History Mother Family Medical History: Thyroid Disorder Additional Family Medical History / Comment(s): mom with hypothyroid and hypoglycemia Sister(s) Family Medical History: Asthma Additional Family Medical History / Comment(s): POTS disease, van wilenbran, Medications and Allergies Home Medications Medication Instructions Recorded Confirmed Type Pedi Multivit No.25/Folic Acid 1 tab PO DAILY 01/26/21 02/10/21 History [Flintstones Multivit Chew Tab] Allergies Allergy/AdvReac Type Severity Reaction Status Date / Time latex Allergy Rash/Hives Verified 02/10/21 15:12 cyclobenzaprine HCl AdvReac HYPER Verified 02/10/21 15:12 [From Flexeril] Exam Osteopathic Statement: *. No significant issues noted on an osteopathic structural exam other than those noted in the History and Physical/Consult. Vital Signs Temp Pulse Resp BP Pulse Ox 02/11/21 02:00 97.3 F L 74 16 94/50 97 02/10/21 20:34 97.2 F L 97 16 111/64 98 02/10/21 15:10 97.2 F L 97 16 111/64 98 Intake and Output 02/10/21 02/11/21 02/11/21 22:59 06:59 14:59 Other: # Voids 1 1 Weight 57.606 kg - OBG Physical Exam Breast: both: normal (no masses) Abdomen: bowel sounds normal, no diffuse tenderness, no bruit present, no guarding noted, no hepatomegaly, no splenomegaly, no mass Vulva: both: normal Vagina: normal moisture, no discharge Cervix: no lesion, no discharge Uterus: normal size, normal contour Adnexa: both: normal Anus/Rectum: normal perianal skin, no rectal mass, no hemorrhoids, heme negative Results Result Diagrams: 02/10/21 16:00 02/10/21 16:00 Abnormal Lab Results - Last 24 Hours (Table) 02/10/21 02/10/21 02/10/21 Range/Units 15:13 15:32 16:00 Hgb (11.4-16.0) gm/dL Hct (34.0-46.0) % MCV (80.0-100.0) fL Sodium 136 L (137-145) mmol/L Carbon Dioxide 21 L (22-30) mmol/L BUN 6 L (7-17) mg/dL Creatinine 0.35 L (0.52-1.04) mg/dL POC Glucose (mg/dL) 102 H (75-99) mg/dL Uric Acid 3.5 L (3.7-7.4) mg/dL Alkaline Phosphatase 139 H (38-126) U/L Urine Appearance Cloudy H (Clear) Urine Protein 1+ H (Negative) Ur Leukocyte Esterase Large H (Negative) Urine WBC 26 H (0-5) /hpf Ur Squamous Epith Cells 7 H (0-4) /hpf Urine Bacteria Occasional H (None) /hpf Urine Mucus Many H (None) /hpf Urine Yeast (Budding) Occasional H (None) /hpf 02/10/21 Range/Units 16:00 Hgb 10.0 L (11.4-16.0) gm/dL Hct 30.5 L (34.0-46.0) % MCV 76.6 L (80.0-100.0) fL Sodium (137-145) mmol/L Carbon Dioxide (22-30) mmol/L BUN (7-17) mg/dL Creatinine (0.52-1.04) mg/dL POC Glucose (mg/dL) (75-99) mg/dL Uric Acid (3.7-7.4) mg/dL Alkaline Phosphatase (38-126) U/L Urine Appearance (Clear) Urine Protein (Negative) Ur Leukocyte Esterase (Negative) Urine WBC (0-5) /hpf Ur Squamous Epith Cells (0-4) /hpf Urine Bacteria (None) /hpf Urine Mucus (None) /hpf Urine Yeast (Budding) (None) /hpf
--- NOTE | 2021-02-11 08:21 | P.PN ---
Progress Note - Text Progress Note Date: 02/11/21 Patient seen and evaluated this morning. Overall she is stable. No significant changes over yesterday. Continue care and await neurologic consult. We'll verify that they did get the notification today and if possible trying discharge her home as long as it is okay with neurology. All these questions were answered for the patient and she is again stable at this time.
--- NOTE | 2021-02-11 15:47 | P.CNNES ---
History of Present Illness Consult date: 02/11/21 Requesting physician: Laz Sahni Reason for Consult: Patient 34 weeks , current labs WNL, patient has ongoing dizziness History of Present Illness: Patient is a 20-year-old female came to the hospital yesterday at 5:35 PM for evaluation of dizziness. Patient at present is 34 weeks . Patient states that for the last couple weeks she has been feeling dizzy. It can happen when she is standing, sitting or walking. When she is standing or walking, she stops and hangs onto something. If she is sitting, she waits for it to pass. She has never passed out. This episode can happen at any time of the day and she feels "hard to breathe", gas blurred vision. When she looks on one side of the room to another, it appears to be in slow motion. Patient has not been taking her vitamins, as it makes her sick. Patient has developed significant anemia, as her hemoglobin was 8.3 on 01/31/2021. Now it has improved to 10.0 on 02/10/2021. She has started taking iron pills about 1 weeks ago. Although her hemoglobin has improved, but the dizziness has not improved, seems to be slightly worse. Patient denies any dysuria, although she does have some foul-smelling urine. Vital signs on arrival blood pressure 111/64, pulse rate 97 temperature 97.2. Patient's blood test shows normal WBC, hemoglobin 10.0, platelets 2017. Patient's baseline hemoglobin has been 14 and 13, which has dropped down to 10 in January 2020, and now 8.3, 9.1 and most recent 10.0. MCV is low 76.6. Sodium 136 potassium 3.7, normal renal functions. Normal hepatic panel. UA shows large amount of leukocyte Estrace and 26 WBC, occasional bacteria. Urine drug screen negative. Patient only takes multivitamins. Patient had a computed tomography scan of head performed previously on 11/09/2018 for "dizziness, syncope". It was normal. Paranasal sinuses are unremarkable. I reviewed computed tomography scan and agree with the findings. Patient states that when she was with her son, whom she delivered on 01/31/2020, after delivery she also developed similar dizziness, but it lasted for a week and then went away. Patient is concerned that her sister has been diagnosed with POTS, and von Willebrand disease and dysautonomia. Patient's orthostatics were negative when checked by the nurse. I informed her that her dizziness is likely related to the UTI and anemia and , therefore not likely related to POTS. Review of Systems All other review of systems unremarkable. Patient does feel tired. No numbness tingling focal weakness. No loss of vision or double vision. Past Medical History Past Medical History: No Reported History Additional Past Medical History / Comment(s): hyperflexibility of the joints, previous shoulder dislocation History of Any Multi-Drug Resistant Organisms: None Reported Past Surgical History: No Surgical Hx Reported Additional Past Anesthesia/Blood Transfusion Reaction / Comment(s): no hx of blood transfusion, no surgery history. Past Psychological History: ADD/ADHD, Anxiety, Bipolar, Depression, PTSD Additional Psychological History / Comment(s): concerta 30mg daily -not currently taking Smoking Status: Former smoker Past Alcohol Use History: None Reported Past Drug Use History: None Reported Additional Drug Use History / Comment(s): Was using marijuanna periodically, not current. Drinks 1 drink a month. smoked here and there not any more. - Past Family History Mother Family Medical History: Thyroid Disorder Additional Family Medical History / Comment(s): mom with hypothyroid and hypoglycemia Sister(s) Family Medical History: Asthma Additional Family Medical History / Comment(s): POTS disease, van wilenbran, Medications and Allergies Home Medications Medication Instructions Recorded Confirmed Type Pedi Multivit No.25/Folic Acid 1 tab PO DAILY 01/26/21 02/10/21 History [Flintstones Multivit Chew Tab] Cephalexin [Keflex] 500 mg PO Q6HR #20 cap 02/12/21 Rx Allergies Allergy/AdvReac Type Severity Reaction Status Date / Time latex Allergy Rash/Hives Verified 02/10/21 15:12 cyclobenzaprine HCl AdvReac HYPER Verified 02/10/21 15:12 [From Flexeril] Physical Examination - Vital Signs Vital Signs: Vital Signs Temp Pulse Resp BP Pulse Ox 02/11/21 08:20 98.3 F 86 16 97/54 97 02/11/21 02:00 97.3 F L 74 16 94/50 97 02/10/21 20:34 97.2 F L 97 16 111/64 98 02/10/21 15:10 97.2 F L 97 16 111/64 98 Intake and Output 02/10/21 02/11/21 02/11/21 22:59 06:59 14:59 Other: # Voids 1 1 Weight 57.606 kg Patient is a young female, in no distress. Patient is alert awake oriented to time place and person. Speech and language functions are normal. Attention, concentration and fund of knowledge is adequate. On cranial examination, pupils are round and reacting to light, visual koenig are full on confrontation, extraocular muscles are intact with no nystagmus. Face is symmetric, tongue protrudes to the midline. Palatal elevation and sensation normal, hearing and shoulder shrug normal, facial sensation normal. Shoulder shrug normal. Otologic examination revealed normal appearing eardrums with no wax. On muscle strength testing, there is no pronator drift and the strength is normal in arms and legs distally and proximally. Deep tendon reflexes are 1+ and plantars downgoing. Sensory to touch is equal with no neglect. Cerebellar function showed no ataxia for [id number] testing. No dysdiadochokinesia. Tone and bulk of muscles normal. Gait normal. On general examination, there is no carotid bruit or murmur, S1-S2 audible. Abdomen is soft nontender. Chest is clear. Peripheral pulses are present. No edema. Orthostatics checked by the nurse reported supine blood pressure 80/46, sitting up 106/62 and standing was 100/60. Results - Laboratory Findings CBC and BMP: 02/10/21 16:00 02/10/21 16:00 Abnormal Lab Findings: Abnormal Labs 02/10/21 02/10/21 02/10/21 15:13 15:32 16:00 Hgb Hct MCV Sodium 136 L Carbon Dioxide 21 L BUN 6 L Creatinine 0.35 L POC Glucose (mg/dL) 102 H Uric Acid 3.5 L Alkaline Phosphatase 139 H Urine Appearance Cloudy H Urine Protein 1+ H Ur Leukocyte Esterase Large H Urine WBC 26 H Ur Squamous Epith Cells 7 H Urine Bacteria Occasional H Urine Mucus Many H Urine Yeast (Budding) Occasional H 02/10/21 16:00 Hgb 10.0 L Hct 30.5 L MCV 76.6 L Sodium Carbon Dioxide BUN Creatinine POC Glucose (mg/dL) Uric Acid Alkaline Phosphatase Urine Appearance Urine Protein Ur Leukocyte Esterase Urine WBC Ur Squamous Epith Cells Urine Bacteria Urine Mucus Urine Yeast (Budding) Assessment and Plan Assessment: * Dizziness, likely multifactorial. Probably due to combination of anemia and possible UTI, and also being 34 weeks . * 34 week . Plan: * We will check B12, folate, MMA. * Treatment of possible UTI as per OB. Consider checking urine culture. * Continue iron replacement. Hopefully if anemia improves, the dizziness will improve. Orthostatics checked by the nurse was negative. * No other neurological workup indicated. * Neurologically clear. Addendum 02/14/2021: Received results of blood tests. Patient's B12 is very low 161 (200-944), methylmalonic acid is normal 0.23, and folic acid is normal 19.6. I called patient at the number listed, informed her of low B12 level. She was apparently not aware of low B12 level. She was recommended to speak to her OB about vitamin B12 replacement.
[2021-02-11] MEDS: CEPHALEXIN 500 MG CAP PO SCH ×2 (17:47→22:04)
[2021-02-11 17:58] LABS: Appearance,Urine Clear (Clear); Bacteria,Urine Occasional /hpf; Bilirubin,Urine Negative (Negative); Blood,Urine Negative (Negative); Color,Urine Light Yellow; Glucose,Urine (UA) Negative (Negative); Ketones,Urine Negative (Negative); Leukocyte Esterase,Urine Large (Negative); Mucus,Urine Rare /hpf; Nitrite,Urine Negative (Negative); PH, Urine 7.5 (5.0-8.0); Protein,Urine Negative (Negative); RBC,Urine <1 /hpf (0-5); Specific Gravity,Urine 1.011 (1.001-1.035); Squamous Epithelial Cell,Urine 2 /hpf (0-4); Urobilinogen,Urine <2.0 mg/dL (<2.0); WBC,Urine 4 /hpf (0-5)
[2021-02-12 03:23] LABS: Folate, Serum 19.6 ng/mL
--- NOTE | 2021-02-12 07:34 | P.DS ---
Providers Date of admission: 02/10/21 17:35 Expected date of discharge: 02/12/21 Attending physician: Laz Sahni Consults: 02/10/21 17:55 Consult Physician Stat Consulting Provider: Rigo Hsieh Consult Reason/Comments: Pt 34wks , current labs WNL, pt has ongoing dizziness Do you want consulting provider notified?: Yes Primary care physician: Stated None Hospital Course: Patient seen and evaluated this morning. She was cleared by neurology yesterday. Possible UTI difficult to say. Her urine has been sent with cultures we'll continue on oral antibiotics as precaution. She is encouraged again to increase her iron intake with iron sulfate even if she takes it every other day should at least stabilize and stimulate her iron production. Otherwise she is stable and she actually feels little better this morning. We'll plan discharge home today. She will remain on modified bedrest through the weekend and she has appointment with me next week. All other questions are answered for her at this time. She is stable for discharge this time. NST is reactive. Patient Condition at Discharge: Stable Plan - Discharge Summary New Discharge Prescriptions: No Action Pedi Multivit No.25/Folic Acid [Flintstones Multivit Chew Tab] 1 tab PO DAILY Discharge Medication List Pedi Multivit No.25/Folic Acid [Flintstones Multivit Chew Tab] 1 tab PO DAILY 01/26/21 [History]
[2021-02-12 07:44] VITALS: BP 100/55; PULSE 85; TEMP 97.7
== END 2021-02-12 08:10 | disposition home or self-care (01) ==
LOC: FBPOP 15:09 → 4FBP 17:35
PROVIDERS: ADMIT Obstetrics & Gynecology; ATTEND Obstetrics & Gynecology
DX: O99.013 Anemia complicating pregnancy, third trimester (principal); D64.9 Anemia, unspecified; Z3A.34 34 weeks gestation of pregnancy; H53.8 Other visual disturbances; R42 Dizziness and giddiness; O99.343 Other mental disorders complicating pregnancy, third trimester; F43.10 Post-traumatic stress disorder, unspecified; F31.9 Bipolar disorder, unspecified; F90.9 Attention-deficit hyperactivity disorder, unspecified type; O99.891 Other specified diseases and conditions complicating pregnancy; M35.7 Hypermobility syndrome; Z91.040 Latex allergy status; Z88.8 Allergy status to other drugs, medicaments and biological substances; Z87.891 Personal history of nicotine dependence; Z86.59 Personal history of other mental and behavioral disorders; Z82.5 Family history of asthma and other chronic lower respiratory diseases; Z82.49 Family history of ischemic heart disease and other diseases of the circulatory system; Z83.49 Family history of other endocrine, nutritional and metabolic diseases
CPT/HCPCS: 59025; 83921; 82570; 80053; 84443; 84156; 82607; 82746; 83615; 84550; 85025; 81001 ×2; 80306; G0463; G0378 ×3; 99215

== ENCOUNTER 2021-03-17 06:00 | Inpatient (IN) | payer OTHER ==
[2021-03-17] MEDS ORDERED: TERBUTALINE 1 MG/ML VIAL SQ PRN (06:34)
[2021-03-17] MEDS ORDERED: CARBOPROST TROMETHAMINE 250 MCG/ML 1 ML AMP IM PRN (06:34)
[2021-03-17] MEDS ORDERED: OXYTOCIN 10 UNIT/ML 1 ML VIAL IM PRN (06:34)
[2021-03-17] MEDS ORDERED: LIDOCAINE 0.5% (PF) 5 MG/ML (50 ML SDV) SQ PRN (06:34)
[2021-03-17] MEDS ORDERED: METHYLERGONOVINE 0.2 MG/ML 1 ML AMP IM PRN (06:34)
[2021-03-17] MEDS ORDERED: OXYTOCIN 30 UNITS/500 ML NS 30 UNIT in SALINE 1 500ML.BAG IV SCH (06:45)
[2021-03-17] MEDS: LACTATED RINGERS 1,000 ML IV SCH ×2 (06:45→20:54)
[2021-03-17 07:27] LABS: Basophils % (A) 1 %; Eosinophils % (A) 1 %; HCT 28.2 % (34.0-46.0); HGB 9.4 gm/dL (11.4-16.0); Hypochromasia Slight; Lymphocytes # (A) 1.6 k/uL (1.0-4.8); Lymphocytes % (A) 26 %; MCH 23.7 pg (25.0-35.0); MCHC 33.3 g/dL (31.0-37.0); Mean Platelet Volume 9.2; Microcytosis Moderate; Monocytes # (A) 0.3 k/uL (0-1.0); Monocytes % (A) 5 %; Neutrophils # (A) 3.9 k/uL (1.3-7.7); Neutrophils % (A) 64 %; Platelet Count 205 k/uL (150-450); Poikilocytosis Slight; RBC 3.96 m/uL (3.80-5.40); RDW 15.3 % (11.5-15.5)
[2021-03-17 07:31] LABS: MCV 71.2 fL (80.0-100.0)
[2021-03-17] MEDS ORDERED: fentaNYL (PF) 50 MCG/ML 5 ML AMP ONE (10:31)
[2021-03-17] MEDS ORDERED: ROPIVACAINE 5MG/ML 20ML VIAL ONE (10:31)
[2021-03-17] MEDS ORDERED: SODIUM CHLORIDE 0.9% 100 ML BAG ONE (10:31)
[2021-03-17] MEDS ORDERED: diphenhydrAMINE 25 MG CAP PO PRN (13:28)
[2021-03-17] MEDS ORDERED: BENZOCAINE/MENTHOL SPRAY 1 GM/SPRAY AEROSOL TOPICAL PRN (13:28)
[2021-03-17] MEDS ORDERED: diphenhydrAMINE 50 MG/ML 1 ML VIAL IVP PRN ×2 (13:28)
[2021-03-17] MEDS ORDERED: LANOLIN CREAM 5 GM TUBE TOPICAL PRN (13:28)
[2021-03-17] MEDS ORDERED: HYDROCORTISONE 2.5% RECTAL CREAM 30 GM TUBE RECTAL PRN (13:28)
[2021-03-17] MEDS ORDERED: Rhogam IMMUNE GLOBULIN 1,500 UNIT/1 ML IM ONE (13:28)
[2021-03-17] MEDS ORDERED: MEASLES-MUMPS-RUBELLA VACC/PF 12,500 UNIT/0.5 ML VIAL SQ ONE (13:28)
[2021-03-17] MEDS ORDERED: ZOLPIDEM 5 MG TAB PO PRN (13:28)
[2021-03-17] MEDS ORDERED: diphenhydrAMINE 50 MG CAP PO PRN (13:28)
[2021-03-17] MEDS ORDERED: SIMETHICONE 80 MG CHEWABLE PO PRN (13:28)
--- NOTE | 2021-03-17 13:35 | P.HPOB ---
History of Present Illness H&P Date: 03/17/21 Chief Complaint: Intrauterine at term: Induction of labor Patient is a 20-year-old P1 at 39 weeks gestation arise for induction of labor. Her Precis course has been, K by multiple medical issues including hyperemesis gravidarum as well as significant dizziness and headaches and she has the potential for another medical issue that her sister was just recently diagnosed with as well as depression. The condition her sister has been diagnosed with is still not on the chart but is some type of autonomic nervous disorder. Last couple weeks she is been feeling much better and we have followed her closely through the latter part of the . She was started on her normal antidepressant be in as well. Labs are not on the chart does not appear that she did her lab work during the course the but did pass her 1 hour Glucola screens is not clear why the labs were not on the chart. She is mildly anemic with hemoglobin 9.4 today. This is stable from when she had her 1 hour. Plan augmentation of labor with Pitocin. She was di lated to proxy 2 cm 70% effaced and -3 station artificial rupture of membranes was performed and clear fluid is noted. All questions are answered for her and she expects use epidural for analgesia. Past Medical History Past Medical History: No Reported History Additional Past Medical History / Comment(s): hyperflexibility of the joints, previous shoulder dislocation History of Any Multi-Drug Resistant Organisms: None Reported Past Surgical History: No Surgical Hx Reported Additional Past Surgical History / Comment(s): [place] tooth extraction Past Anesthesia/Blood Transfusion Reactions: No Reported Reaction Additional Past Anesthesia/Blood Transfusion Reaction / Comment(s): no hx of blood transfusion, no surgery history. Past Psychological History: ADD/ADHD, Anxiety, Bipolar, Depression, PTSD Additional Psychological History / Comment(s): concerta 30mg daily -not currently taking Smoking Status: Former smoker Past Alcohol Use History: None Reported Past Drug Use History: None Reported Additional Drug Use History / Comment(s): Was using marijuanna periodically, not current. Drinks 1 drink a month. smoked here and there not any more. - Past Family History Mother Family Medical History: Thyroid Disorder Additional Family Medical History / Comment(s): mom with hypothyroid and hypoglycemia Sister(s) Family Medical History: Asthma Additional Family Medical History / Comment(s): POTS disease, van wilenbran, Medications and Allergies Home Medications Medication Instructions Recorded Confirmed Type Pedi Multivit No.25/Folic Acid 1 tab PO DAILY 01/26/21 03/17/21 History [Flintstones Multivit Chew Tab] Allergies Allergy/AdvReac Type Severity Reaction Status Date / Time cyclobenzaprine HCl AdvReac HYPER Verified 03/17/21 06:34 [From Flexeril] Exam Osteopathic Statement: *. No significant issues noted on an osteopathic structural exam other than those noted in the History and Physical/Consult. Vital Signs Temp Pulse Resp BP Pulse Ox 03/17/21 06:30 97.2 F L 88 16 111/73 99 Intake and Output 03/16/21 03/17/21 03/17/21 22:59 06:59 14:59 Other: Weight 58.06 kg - OBG Physical Exam Breast: both: normal (no masses) Abdomen: bowel sounds normal, no diffuse tenderness, no bruit present, no guarding noted, no hepatomegaly, no splenomegaly, no mass Vulva: both: normal Vagina: normal moisture, no discharge Cervix: no lesion, no discharge Uterus: normal size, normal contour Adnexa: both: normal Anus/Rectum: normal perianal skin, no rectal mass, no hemorrhoids, heme negative Results Result Diagrams: 03/17/21 06:55 Abnormal Lab Results - Last 24 Hours (Table) 03/17/21 Range/Units 06:55 Hgb 9.4 L (11.4-16.0) gm/dL Hct 28.2 L (34.0-46.0) % MCV 71.2 L D (80.0-100.0) fL MCH 23.7 L (25.0-35.0) pg
--- NOTE | 2021-03-17 13:37 | P.PROBDLV ---
Vaginal Delivery Note - . Vaginal Delivery Note: A she progressed complete and pushing with spontaneous vaginal delivery of a viable female over an intact perineum. Falling deliver the head a nuchal cord 1 was easily reduced and from right occiput anterior position with gentle downward and upward traction the anterior posterior shoulders were easily delivered. Mouth nares were then bulb suctioned and baby was placed on mother's abdomen where the umbilical cord was clamped cut usual fashion. Nursery per sonnel is present and assumed care. Ascent was then delivered intact Pitocin was added to the IV. A 1.5 cm suburethral cyst was noted and has been present about the lidocaine was injected into the cyst to potentially drain it and through the injection opening the cyst drained without difficulty so no incision was made. She is aware that it may come back as we do not really excise anything but that if it does then be managed differently in the future. Red rubber catheter was used to drain the bladder of urine during this process to verify that it did not appear to be part of the cyst area. scores were 9 and 9 at one and 5 minutes respectively and the weight was 6 lbs. 15 oz. Both mother and baby are stable following delivery.
[2021-03-17] MEDS: IBUPROFEN 600 MG TAB PO SCH ×2 (15:02→22:34)
[2021-03-17 18:10] LABS: HIV 2 AB Non-Reactive (Non-Reactive); HIV AB P24 Non-Reactive (Non-Reactive); HIV P24 AG Non-Reactive (Non-Reactive)
[2021-03-17] MEDS: ACETAMINOPHEN TAB 325 MG TAB PO PRN (19:37)
[2021-03-17] MEDS: SENNOSIDES-DOCUSATE SODIUM 1 EACH TAB PO SCH (19:37)
[2021-03-18] MEDS: LACTATED RINGERS 1,000 ML IV SCH ×2 (00:13→22:00)
[2021-03-18 01:25] LABS: Hepatitis B Surface Antigen Non-Reactive (Non-Reactive)
[2021-03-18] MEDS: IBUPROFEN 600 MG TAB PO SCH ×4 (03:37→20:12)
[2021-03-18] MEDS: SENNOSIDES-DOCUSATE SODIUM 1 EACH TAB PO SCH ×2 (09:05→20:11)
[2021-03-18 09:20] VITALS: RESP 16
[2021-03-18] MEDS: ACETAMINOPHEN TAB 325 MG TAB PO PRN (14:19)
--- NOTE | 2021-03-18 14:36 | P.PNOBGVD ---
Subjective - Subjective Principal diagnosis: day 1 Interval history: Patient doing very well this morning. She voices no complaints. Vital signs are stable and afebrile. We'll plan to continue care for now. Baby may be having to stay an extra day due to looking for and RPR from her lab work otherwise she is stable. Patient reports: Reports appetite normal, Reports voiding normally, Reports pain well controlled, Reports ambulating normally : doing well Objective - Latest Vital Signs Latest vital signs: Vital Signs Temp Pulse Resp BP Pulse Ox 03/18/21 09:00 98.4 F 96 16 113/77 98 03/18/21 04:00 98.0 F 83 15 103/75 97 03/18/21 00:00 98.0 F 73 15 101/59 95 03/17/21 20:00 98.3 F 78 15 103/70 98 03/17/21 15:39 97.6 F 75 16 117/69 03/17/21 15:38 97.6 F 75 16 117/69 03/17/21 15:08 97.7 F 77 16 102/67 03/17/21 14:38 62 16 109/71 Intake and Output 03/17/21 03/18/21 03/18/21 22:59 06:59 14:59 Intake Total 2500 Output Total 250 Balance 2250 Intake: IV 2500 Output: Urine 250 Other: # Voids 2 1 - Exam Lungs: bilateral: normal Chest: Normal S1, Normal S2 Extremities: Present: normal Abdomen: Present: normal appearance, soft Uterus: Present: normal, firm
[2021-03-19] MEDS: IBUPROFEN 600 MG TAB PO SCH ×2 (04:21→08:29)
--- NOTE | 2021-03-19 08:23 | P.DS ---
Providers Date of admission: 03/17/21 06:15 Expected date of discharge: 03/19/21 Attending physician: Laz Sahni Primary care physician: Stated None Hospital Course: Patient is doing very well this morning day 2. She is ambulating, voiding and tolerating her diet. She voices no other complaints. Vital signs are stable and afebrile. Heart regular, lungs clear, extremities without pain. Abdomen is follow soft uterus is firm and lochia is reported light. Pressure for Motrin was 4 to her pharmacy. Discharge instructions thoroughly reviewed and all questions were answered for her prior to discharge. She is stable for discharge Patient Condition at Discharge: Good Plan - Discharge Summary New Discharge Prescriptions: New Ibuprofen [Motrin] 600 mg PO Q6HR PRN #30 tab PRN Reason: Pain No Action Pedi Multivit No.25/Folic Acid [Flintstones Multivit Chew Tab] 1 tab PO DAILY Discharge Medication List Pedi Multivit No.25/Folic Acid [Flintstones Multivit Chew Tab] 1 tab PO DAILY 01/26/21 [History] Ibuprofen [Motrin] 600 mg PO Q6HR PRN #30 tab 03/19/21 [Rx] Follow up Appointment(s)/Referral(s): Laz Sahni DO [Doctor of Osteopathic Medicine] - 04/27/21 11:00 am Activity/Diet/Wound Care/Special Instructions: no Heavy lifting, limit stairs and driving, and pelvic rest. If any high temperatures, heavy bleeding, or severe pain call my office Discharge Disposition: HOME SELF-CARE
[2021-03-19] MEDS: SENNOSIDES-DOCUSATE SODIUM 1 EACH TAB PO SCH (08:29)
[2021-03-19 09:59] VITALS: BP 105/80; PULSE 98; TEMP 98.2
== END 2021-03-19 11:00 | disposition home or self-care (01) | DRG 807 ==
LOC: 4FBP 06:15
PROVIDERS: ADMIT Obstetrics & Gynecology; ATTEND Obstetrics & Gynecology
PROC: 10E0XZZ Delivery of Products of Conception, External Approach (ICD-10-PCS; principal; 2021-03-17)
DX: O69.81X0 Labor and delivery complicated by cord around neck, without compression, not applicable or unspecified (principal); Z37.0 Single live birth; O99.02 Anemia complicating childbirth; F90.9 Attention-deficit hyperactivity disorder, unspecified type; F31.9 Bipolar disorder, unspecified; N36.8 Other specified disorders of urethra; O34.83 Maternal care for other abnormalities of pelvic organs, third trimester; D64.9 Anemia, unspecified; F43.10 Post-traumatic stress disorder, unspecified; O99.343 Other mental disorders complicating pregnancy, third trimester; Z3A.39 39 weeks gestation of pregnancy; Z87.891 Personal history of nicotine dependence; Z88.8 Allergy status to other drugs, medicaments and biological substances
CPT/HCPCS: 85025; 85461; 86762; 86780; 86850; 86870; 86880; 86900; 86901; 87340; 87390; 88307

== ENCOUNTER 2022-01-31 12:42 | Emergency (ER) | payer OTHER ==
[2022-01-31 13:01] VITALS: TEMP 99.4
[2022-01-31] MEDS ORDERED: ONDANSETRON 4 MG/2 ML VIAL IM STA (13:05)
--- NOTE | 2022-01-31 13:09 | ED ---
General Adult HPI - General Chief complaint: Head Injury Stated complaint: concussion Time Seen by Provider: 01/31/22 13:00 Source: patient, RN notes reviewed, old records reviewed Mode of arrival: ambulatory Limitations: no limitations - History of Present Illness Initial comments: this is a 21-year-old female who presents emergency Department complaining that she struck her head yesterday while getting up into a truck she hit the top of her head on a wheel of a table. Patient states she did not lose consciousness she had to sit down for a few minutes because it hurt. Patient states she was very nauseated yesterday but woke up this morning with a headache and vomiting. She states yesterday she had a headache but it was worse this morning. Patient also complains of some neck pain. Patient denies any numbness or weakness. Patient denies any other injury at this time. - Related Data Home Medications Medication Instructions Recorded Confirmed Pedi Multivit No.25/Folic Acid 1 tab PO DAILY 01/26/21 03/17/21 [Flintstones Multivit Chew Tab] Previous Rx's Medication Instructions Recorded Ibuprofen [Motrin] 600 mg PO Q6HR PRN #30 tab 03/19/21 Ibuprofen 600 mg PO Q8H #15 tab 01/31/22 Orphenadrine [Norflex] 100 mg PO Q12H #20 tab 01/31/22 Allergies Allergy/AdvReac Type Severity Reaction Status Date / Time cyclobenzaprine HCl AdvReac HYPER Verified 01/31/22 13:01 [From Flexeril] Review of Systems ROS Statement: Those systems with pertinent positive or pertinent negative responses have been documented in the HPI. ROS Other: All systems not noted in ROS Statement are negative. Past Medical History Past Medical History: No Reported History Additional Past Medical History / Comment(s): hyperflexibility of the joints, previous shoulder dislocation History of Any Multi-Drug Resistant Organisms: None Reported Past Surgical History: No Surgical Hx Reported Additional Past Surgical History / Comment(s): [place] tooth extraction Past Anesthesia/Blood Transfusion Reactions: No Reported Reaction Additional Past Anesthesia/Blood Transfusion Reaction / Comment(s): no hx of blood transfusion, no surgery history. Past Psychological History: ADD/ADHD, Anxiety, Bipolar, Depression, PTSD Smoking Status: Former smoker Past Alcohol Use History: None Reported Past Drug Use History: None Reported - Past Family History Mother Family Medical History: Thyroid Disorder Additional Family Medical History / Comment(s): mom with hypothyroid and hypoglycemia Sister(s) Family Medical History: Asthma Additional Family Medical History / Comment(s): POTS disease, van lornaenbran, General Exam - General Exam Comments Initial Comments: GENERAL: Patient is well-developed and well-nourished. Patient is nontoxic and well- hydrated and is in mild distress. no obvious signs of trauma to the scalp. ENT: Neck is soft and supple. No significant lymphadenopathy is noted. Oropharynx is clear. Moist mucous membranes. patient has some left-sided trapezius muscle tenderness EYES: The sclera were anicteric and conjunctiva were pink and moist. Extraocular movements were intact and pupils were equal round and reactive to light. Eyelids were unremarkable. PULMONARY: Unlabored respirations. Good breath sounds bilaterally. No audible rales rhonchi or wheezing was noted. CARDIOVASCULAR: There is a regular rate and rhythm without any murmurs gallops or rubs. ABDOMEN: Soft and nontender with normal bowel sounds. SKIN: Skin is clear with no lesions or rashes and otherwise unremarkable. NEUROLOGIC: Patient is alert and oriented x3. Cranial nerves II through XII are grossly intact. Motor and sensory are also intact. Normal speech, volume and content. Symmetrical smile. MUSCULOSKELETAL: Normal extremities with adequate strength and full range of motion. LYMPHATICS: No significant lymphadenopathy is noted PSYCHIATRIC: Normal psychiatric evaluation. Limitations: no limitations Course Vital Signs 01/31/22 12:57 Temperature 99.4 F Pulse Rate 119 H Respiratory 18 Rate Blood Pressure 100/60 O2 Sat by Pulse 100 Oximetry Medical Decision Making - Medical Decision Making CT of the brain and C-spine showed no acute abnormality. Patient had no vomiting after she eats Zofran in the emergency department. Patient continued to have left-sided trapezius muscle pain. Disposition Clinical Impression: Closed head injury Disposition: HOME SELF-CARE Instructions (If sedation given, give patient instructions): Head Injury (ED) Prescriptions: Ibuprofen 600 mg PO Q8H #15 tab Orphenadrine [Norflex] 100 mg PO Q12H #20 tab Is patient prescribed a controlled substance at d/c from ED?: No Referrals: Kevin Bautista MD [Primary Care Provider] - 1-2 days Time of Disposition: 15:00
--- NOTE | 2022-01-31 14:28 | CT ---
EXAMINATION TYPE: CT brain cspine wo con DATE OF EXAM: 01/31/2022 COMPARISON: Previous exam 11/09/2018 HISTORY: Fall, hit head, vomiting CT DLP: 1285.2 mGycm Automated exposure control for dose reduction was used. TECHNIQUE: CT scan of the head and cervical spine are performed without contrast. FINDINGS: There is no acute intracranial hemorrhage, mass effect, or midline shift identified. The ventricles and sulci are within normal limits in size. The globes are intact and the visualized sin uses are clear. Cervical spine is visualized in its entirety from C1 through upper thoracic levels and demonstrates s atisfactory alignment without evidence of acute fracture or dislocation. Prevertebral soft tissue ap pears within normal limits. The C1-C2 articulation is unremarkable. IMPRESSION: 1. There is no acute fracture or dislocation evident in the cervical spine. 2. No acute intracranial hemorrhage, mass effect, or midline shift is seen.
[2022-01-31] MEDS ORDERED: ONDANSETRON 4 MG ODT STARTER PACK 2 TAB BTL PO STA (15:16)
[2022-01-31 15:32] VITALS: BP 99/55; PULSE 88; RESP 17
== END 2022-01-31 15:32 | disposition home or self-care (01) ==
LOC: EC 12:42
DX: S09.90XA Unspecified injury of head, initial encounter (principal); F31.9 Bipolar disorder, unspecified; F41.9 Anxiety disorder, unspecified; Z87.891 Personal history of nicotine dependence; Z88.8 Allergy status to other drugs, medicaments and biological substances; Z79.899 Other long term (current) drug therapy; W22.8XXA Striking against or struck by other objects, initial encounter
CPT/HCPCS: 72125; 70450; 99284; J2405; S0119; 96372

== ENCOUNTER 2022-05-31 09:07 | Emergency (ER) | payer OTHER ==
[2022-05-31 09:18] VITALS: TEMP 98.4
[2022-05-31] MEDS ORDERED: SODIUM CHLORIDE 0.9% 1,000 ML IV STA (09:22)
[2022-05-31] MEDS ORDERED: SODIUM CHLORIDE 0.9% 500 ML 500 ML IV STA (09:22)
[2022-05-31 09:46] LABS: Basophils % (A) 0 %; Eosinophils # (A) 0.1 k/uL (0-0.7); Eosinophils % (A) 1 %; HCT 34.7 % (34.0-46.0); HGB 11.7 gm/dL (11.4-16.0); Lymphocytes # (A) 0.6 k/uL (1.0-4.8); Lymphocytes % (A) 8 %; MCH 26.7 pg (25.0-35.0); MCHC 33.5 g/dL (31.0-37.0); MCV 79.7 fL (80.0-100.0); Mean Platelet Volume 9.5; Monocytes # (A) 0.3 k/uL (0-1.0); Monocytes % (A) 4 %; Neutrophils # (A) 6.4 k/uL (1.3-7.7); Neutrophils % (A) 85 %; Platelet Count 220 k/uL (150-450); RBC 4.36 m/uL (3.80-5.40); RDW 13.4 % (11.5-15.5); WBC 7.5 k/uL (3.8-10.6)
[2022-05-31 09:53] LABS: ALT 17 U/L (4-34); AST 17 U/L (14-36); African American GFR (CKD) >90 (>60 ml/min/1.73 sqM); Alkaline Phosphatase 53 U/L (38-126); Anion Gap 10 mmol/L; Blood Urea Nitrogen 13 mg/dL (7-17); Calcium 8.1 mg/dL (8.4-10.2); Carbon Dioxide 20 mmol/L (22-30); Chloride 108 mmol/L (98-107); Glucose 107 mg/dL (74-99); Lipase 66 U/L (23-300); Non-African American GFR(CKD) >90 (>60 ml/min/1.73 sqM); Potassium 3.6 mmol/L (3.5-5.1); Sodium 138 mmol/L (137-145); Total Bilirubin 0.7 mg/dL (0.2-1.3); Total Protein 6.3 g/dL (6.3-8.2)
--- NOTE | 2022-05-31 10:18 | ED ---
Abdominal Pain HPI - General Chief Complaint: Abdominal Pain Stated Complaint: abd pain Time Seen by Provider: 05/31/22 09:09 Source: patient, EMS, RN notes reviewed Mode of arrival: EMS Limitations: no limitations - History of Present Illness Initial Comments: 22-year-old female presents emergency Department with chief complaint abdominal pain. Patient states that she's been having nausea vomiting states it started a few days ago when hurts kid was sick and she states that she slipped on her sent emesis. Patient fell striking her back, neck region. Patient states that her vomiting started overnight. Patient complains of diffuse abdominal discomfort, nausea vomiting she was given fentanyl and Zofran by EMS. Patient denies urgency no dysuria no prior abdominal surgeries. - Related Data Previous Rx's Medication Instructions Recorded Ondansetron Odt [Zofran Odt] 4 mg PO Q8HR PRN #10 tab 05/31/22 Allergies Allergy/AdvReac Type Severity Reaction Status Date / Time cyclobenzaprine HCl AdvReac HYPER Verified 01/31/22 13:01 [From Flexeri] Review of Systems ROS Statement: Those systems with pertinent positive or pertinent negative responses have been documented in the HPI. ROS Other: All systems not noted in ROS Statement are negative. Past Medical History Past Medical History: No Reported History Additional Past Medical History / Comment(s): hyperflexibility of the joints, previous shoulder dislocation History of Any Multi-Drug Resistant Organisms: None Reported Past Surgical History: No Surgical Hx Reported Additional Past Surgical History / Comment(s): [place] tooth extraction Past Anesthesia/Blood Transfusion Reactions: No Reported Reaction Additional Past Anesthesia/Blood Transfusion Reaction / Comment(s): no hx of blood transfusion, no surgery history. Past Psychological History: ADD/ADHD, Anxiety, Bipolar, Depression, PTSD Smoking Status: Former smoker Past Alcohol Use History: None Reported Past Drug Use History: None Reported - Past Family History Mother Family Medical History: Thyroid Disorder Additional Family Medical History / Comment(s): mom with hypothyroid and hypogly cemia Sister(s) Family Medical History: Asthma Additional Family Medical History / Comment(s): POTS disease, van wilenbran, General Exam Limitations: no limitations General appearance: alert, in no apparent distress Head exam: Present: atraumatic, normocephalic, normal inspection Eye exam: Present: normal appearance, PERRL, EOMI. Absent: scleral icterus, conjunctival injection, periorbital swelling ENT exam: Present: normal exam, normal oropharynx, mucous membranes moist, TM's normal bilaterally Neck exam: Present: normal inspection, full ROM. Absent: tenderness, meningi smus, lymphadenopathy Respiratory exam: Present: normal lung sounds bilaterally. Absent: respiratory distress, wheezes, rales, rhonchi, stridor Cardiovascular Exam: Present: regular rate, normal rhythm, normal heart sounds. Absent: systolic murmur, diastolic murmur, rubs, gallop, clicks GI/Abdominal exam: Present: soft, tenderness, normal bowel sounds. Absent: distended, guarding, rebound, rigid Extremities exam: Present: normal inspection, full ROM, normal capillary refill. Absent: tenderness, pedal edema, joint swelling, calf tenderness Back exam: Present: full ROM, tenderness, paraspinal tenderness. Absent: vertebral tenderness Neurological exam: Present: alert, oriented X3, reflexes normal. Absent: motor sensory deficit Skin exam: Present: warm, dry, intact, normal color. Absent: rash Course Vital Signs 05/31/22 05/31/22 05/31/22 09:10 11:05 12:01 Temperature 98.4 F Pulse Rate 96 77 73 Respiratory 20 18 18 Rate Blood Pressure 116/71 124/74 O2 Sat by Pulse 99 100 99 Oximetry Medical Decision Making - Medical Decision Making 42-year-old presented for nausea vomiting. Patient had a fall, neck and back pain. Patient's full workup does not reveal any acute findings CT read and x- ray interpreted shows no acute process. Patient was given medications for nausea which is greatly improved. Patient acute anxiety panic attack which was treated with Ativan 1 mg. - Lab Data Result diagrams: 05/31/22 09:30 05/31/22 09:30 Lab Results 05/31/22 05/31/22 Range/Units 09:30 09:30 WBC 7.5 (3.8-10.6) k/uL RBC 4.36 (3.80-5.40) m/uL Hgb 11.7 (11.4-16.0) gm/dL Hct 34.7 (34.0-46.0) % MCV 79.7 L (80.0-100.0) fL MCH 26.7 (25.0-35.0) pg MCHC 33.5 (31.0-37.0) g/dL RDW 13.4 (11.5-15.5) % Plt Count 220 (150-450) k/uL MPV 9.5 Neutrophils % 85 % Lymphocytes % 8 % Monocytes % 4 % Eosinophils % 1 % Basophils % 0 % Neutrophils # 6.4 (1.3-7.7) k/uL Lymphocytes # 0.6 L (1.0-4.8) k/uL Monocytes # 0.3 (0-1.0) k/uL Eosinophils # 0.1 (0-0.7) k/uL Basophils # 0.0 (0-0.2) k/uL Sodium 138 (137-145) mmol/L Potassium 3.6 (3.5-5.1) mmol/L Chloride 108 H (98-107) mmol/L Carbon Dioxide 20 L (22-30) mmol/L Anion Gap 10 mmol/L BUN 13 (7-17) mg/dL Creatinine 0.49 L (0.52-1.04) mg/dL Est GFR (CKD-EPI)AfAm >90 (>60 ml/min/1.73 sqM) Est GFR (CKD-EPI)NonAf >90 (>60 ml/min/1.73 sqM) Glucose 107 H (74-99) mg/dL Calcium 8.1 L (8.4-10.2) mg/dL Total Bilirubin 0.7 (0.2-1.3) mg/dL AST 17 (14-36) U/L ALT 17 (4-34) U/L Alkaline Phosphatase 53 (38-126) U/L Total Protein 6.3 (6.3-8.2) g/dL Albumin 4.0 (3.5-5.0) g/dL Lipase 66 (23-300) U/L Disposition Clinical Impression: Gastroenteritis, Back contusion, Anxiety Disposition: HOME SELF-CARE Condition: Stable Instructions (If sedation given, give patient instructions): Gastroenteritis (ED) Additional Instructions: Please return to the Emergency Department if symptoms worsen or any other concerns. Prescriptions: Ondansetron Odt [Zofran Odt] 4 mg PO Q8HR PRN #10 tab PRN Reason: Nausea Is patient prescribed a controlled substance at d/c from ED?: No Referrals: Kevin Bautista MD [Primary Care Provider] - 1-2 days Time of Disposition: 13:39
[2022-05-31] MEDS ORDERED: LORazepam 2 MG/ML INJ IV STA (10:58)
--- NOTE | 2022-05-31 11:03 | XR ---
EXAMINATION TYPE: XR lumbar spine 2 or 3V DATE OF EXAM: 05/31/2022 CLINICAL HISTORY: Fall injury with pain TECHNIQUE: Frontal and lateral images of the lumbar spine are obtained. COMPARISON: Lumbar spine x-ray June 11, 2018 FINDINGS: There are 5 lumbar type vertebral bodies identified. The lumbar spine shows stable and st raightened alignment without evidence of acute fracture or dislocation. Vertebral body heights and di sk space heights remain within normal limits. The overlying soft tissue appears unremarkable. IMPRESSION: No acute fracture or dislocation is seen in the lumbar spine. No significant change from prior.
[2022-05-31 11:06] VITALS: RESP 18
--- NOTE | 2022-05-31 11:09 | XR ---
EXAMINATION TYPE: XR cervical spine comp DATE OF EXAM: 05/31/2022 TECHNIQUE: Frontal, lateral, oblique, and open mouth view of the cervical spine are obtained. HISTORY: fall, pain COMPARISON: CT cervical spine January 31, 2022 FINDINGS: The cervical spine is visualized in its entirety from C1 thru the top of T1 level, it is s atisfactory in alignment without evidence of acute fracture or dislocation. The pre-vertebral soft t issue appears within normal limits. The C1-C2 articulation is within normal limits on the open mouth view. The oblique images are within normal limits. Overlying soft tissue is unremarkable. IMPRESSION: No acute fracture or dislocation is seen in the cervical spine. No significant change fr om prior CT.
[2022-05-31] MEDS ORDERED: SODIUM CHLORIDE 0.9% 500 ML 500 ML IV ONE (13:06)
--- NOTE | 2022-05-31 13:24 | CT ---
EXAMINATION TYPE: CT abdomen pelvis w con DATE OF EXAM: 05/31/2022 HISTORY: Bilateral flank pain CT DLP: 579.5mGycm Automated Exposure Control for Dose Reduction was Utilized. CONTRAST: CT scan of the abdomen and pelvis is performed without oral but with IV Contrast, patient injected wi th 100 mL of Isovue 300. COMPARISON: CT abdomen and pelvis October 15, 2018 FINDINGS: LUNG BASES: No significant abnormality is appreciated. LIVER/GB: No significant abnormality is appreciated. PANCREAS: No significant abnormality is seen. SPLEEN: No significant abnormality is seen. ADRENALS: No significant abnormality is seen. KIDNEYS: Symmetric cortical joint uptake and excretion without hydronephrosis seen bilaterally. No di stinct renal stone seen. Subcentimeter thin-walled cyst left kidney coronal image 34 incidentally not ed. BOWEL: Suboptimal evaluation without enteric contrast and patient having little intra-abdominal fat. No suspicious small or large bowel dilatation is present. Stomach poorly distended and thus suboptima lly evaluated. UTERUS/ADNEXA: Retroverted uterus. LYMPH NODES: No greater than 1cm abdominal or pelvic lymph nodes are appreciated. OSSEOUS STRUCTURES: No significant abnormality is seen. OTHER: No significant additional abnormality is seen. IMPRESSION: No significant new or acute finding is seen to account for patient's clinical symptoms of bilateral flank pain. No bowel obstruction is present.
[2022-05-31 15:18] VITALS: BP 112/61; PULSE 78
== END 2022-05-31 15:18 | disposition home or self-care (01) ==
LOC: EC 09:07
DX: S30.0XXA Contusion of lower back and pelvis, initial encounter (principal); K52.9 Noninfective gastroenteritis and colitis, unspecified; F41.9 Anxiety disorder, unspecified; F90.9 Attention-deficit hyperactivity disorder, unspecified type; F31.9 Bipolar disorder, unspecified; F43.10 Post-traumatic stress disorder, unspecified; Z87.891 Personal history of nicotine dependence; Z88.8 Allergy status to other drugs, medicaments and biological substances; W01.0XXA Fall on same level from slipping, tripping and stumbling without subsequent striking against object, initial encounter; Y92.89 Other specified places as the place of occurrence of the external cause
CPT/HCPCS: 36415; 80053; 83690; 85025; 72050; 72100; 74177; 99285; 96374; 96375; 96361; J2060; Q9967; J1790

== ENCOUNTER 2023-01-16 19:11 | Emergency (ER) | payer OTHER ==
[2023-01-16 19:41] VITALS: PULSE 98; RESP 18; TEMP 98.9
[2023-01-16] MEDS ORDERED: SODIUM CHLORIDE 0.9% 1,000 ML IV STA (20:10)
--- NOTE | 2023-01-16 20:13 | ED ---
Syncope HPI - General Chief Complaint: Syncope Stated Complaint: OB Complications Time Seen by Provider: 01/16/23 19:34 Source: patient, RN notes reviewed, old records reviewed Mode of arrival: EMS Limitations: no limitations - History of Present Illness Initial Comments: This is a 22-year-old female to the emergency department for evaluation of a syncopal event. Patient is 17 weeks . [place] maybe she did not drink her normal sure water. Patient has had significant nausea vomiting of . Patient admits lightheadedness dizziness and then a syncopal event she did not have any chest pain abdominal pain shortness of breath or headache. Patient does not currently have any of those symptoms. No abdominal pain currently patient can feel the baby moving. Patient denies any chest pain or shortness of breath, no abdominal pain vaginal bleeding or discharge MD Complaint: loss of consciousness, almost passed out, collapsed -: days(s) Prodromal Symptoms: headache -: second(s) Witnessed: yes - by bystander Injuries Sustained Associated with Event: None Current Symptoms: lightheaded History: previous syncopal episode Context: at rest Treatments Prior to Arrival: none - Related Data Previous Rx's Medication Instructions Recorded Ondansetron Odt [Zofran Odt] 4 mg PO Q8HR PRN #10 tab 05/31/22 Allergies Allergy/AdvReac Type Severity Reaction Status Date / Time cyclobenzaprine HCl AdvReac HYPER Verified 05/31/22 13:37 [From Flexeril] Review of Systems ROS Statement: Those systems with pertinent positive or pertinent negative responses have been documented in the HPI. ROS Other: All systems not noted in ROS Statement are negative. Past Medical History Past Medical History: No Reported History Additional Past Medical History / Comment(s): hyperflexibility of the joints, previous shoulder dislocation History of Any Multi-Drug Resistant Organisms: None Reported Past Surgical History: No Surgical Hx Reported Additional Past Surgical History / Comment(s): [place] tooth extraction Past Anesthesia/Blood Transfusion Reactions: No Reported Reaction Additional Past Anesthesia/Blood Transfusion Reaction / Comment(s): no hx of blood transfusion, no surgery history. Past Psychological History: ADD/ADHD, Anxiety, Bipolar, Depression, PTSD Smoking Status: Former smoker Past Alcohol Use History: None Reported Past Drug Use History: None Reported - Past Family History Mother Family Medical History: Thyroid Disorder Additional Family Medical History / Comment(s): mom with hypothyroid and hypoglycemia Sister(s) Family Medical History: Asthma Additional Family Medical History / Comment(s): POTS disease, van wilenbran, General Exam Limitations: no limitations General appearance: anxious Head exam: Present: atraumatic, normocephalic, normal inspection Eye exam: Present: normal appearance, PERRL, EOMI. Absent: scleral icterus, conjunctival injection, periorbital swelling ENT exam: Present: normal exam, mucous membranes dry Neck exam: Present: normal inspection. Absent: tenderness, meningismus, lym phadenopathy Respiratory exam: Present: normal lung sounds bilaterally. Absent: respiratory distress, wheezes, rales, rhonchi, stridor Cardiovascular Exam: Present: normal rhythm, tachycardia, normal heart sounds. Absent: systolic murmur, diastolic murmur, rubs, gallop, clicks GI/Abdominal exam: Present: soft, normal bowel sounds. Absent: distended, tenderness, guarding, rebound, rigid Extremities exam: Present: normal inspection, full ROM, normal capillary refill. Absent: tenderness, pedal edema, joint swelling, calf tenderness Back exam: Present: normal inspection Neurological exam: Present: alert, oriented X3, CN II-XII intact Psychiatric exam: Present: normal affect, normal mood Skin exam: Present: warm, dry, intact, normal color. Absent: rash Course Vital Signs 01/16/23 01/16/23 19:29 22:19 Temperature 98.9 F Pulse Rate 98 Respiratory 18 18 Rate Blood Pressure 112/68 113/63 O2 Sat by Pulse 99 Oximetry - Reevaluation(s) Reevaluation #1: 01/16/23 Medical records reviewed Reevaluation #2: 01/16/23 Patient symptoms resolved No recurrent syncopal event here in the ER Patient denies any chest pain or shortness of breath, no abdominal pain and is evaluated with good heart tones Reevaluation #3: 01/16/23 Patient informed results questions answered Reevaluation #4: 01/16/23 Was pt. sent in by a medical professional or institution? @ -no Did you speak to anyone other than the patient for history? @ -no Did you review nursing and triage notes? @ -agree Were old charts reviewed? @ -yes Differential Diagnosis? @ -prior EKG interpreted by me (3pts min.)? @ -yes X-rays interpreted by me (1pt min.)? @ -no CT interpreted by me (1pt min.)? @ -no U/S interpreted by me (1pt. min.)? @ -no What testing was considered but not performed? (CT, X-rays, U/S, labs)? Why? @ -no What meds were considered but not given? Why? @ -no Did you discuss the management of the patient with other professionals? @ -no Did you reconcile home meds? @ -no Was smoking cessation discussed for >3mins.? @ -no Was critical care preformed (if so, how long)? @ -no Were there social determinants of health that impacted care today? How? (Homelessness, low income, unemployed, alcoholism, drug addiction, transportation, low edu. Level, literacy, decrease access to med. care, nursing home, rehab)? @ -no Was there de-escalation of care discussed even if they declined? (Discuss DNR or withdrawal of care, Hospice)? @ -no What co-morbidities impacted this encounter? (DM, HTN, Smoking, COPD, CAD, Cancer, CVA, Hep., AIDS, mental health diagnosis, sleep apnea, morbid obesity)? @ -none Was patient admitted / discharged? @ -22 female to the emergency department with syncope event and was dehydration complicated with dehydration from nausea and vomiting of . Patient was exposed [place] significant [place] the [place] all day with dehydration Discharge Undiagnosed new problem with uncertain prognosis? @ -no Drug Therapy requiring intensive monitoring for toxicity (Heparin, Nitro, Insulin, Cardizem)? @ -no Were any procedures done? @ -no Diagnosis/symptom? @ -Syncope and Acute, or Chronic, or Acute on Chronic? @ -acute Uncomplicated (without systemic symptoms) or Complicated (systemic symptoms)? @ -complicated Side effects of treatment? @ -no Exacerbation, Progression, or Severe Exacerbation] @ -no Poses a threat to life or bodily function? @ -yes syncopal event has multiple causes actively to mortality Reevaluation #5: Differential Syncope: Valvular disease, hypertrophic cardiomyopathy, pulmonary embolism, tamponade, tachycardia, bradycardia, TN, hypovolemia, hemorrhage, dissection, anemia, intracranial hemorrhage, seizure, hypoglycemia, carbon monoxide poisoning, this is not meant to be an all-inclusive list. EKG Findings - EKG Comments: EKG Findings:: EKG is sinus 78 CT 128 QRS 90 QTC 402 - EKG Results: EKG: interpreted by MARTHA Medical Decision Making - Medical Decision Making 22 female to the emergency department with syncope event and was dehydration complicated with dehydration from nausea and vomiting of . Patient was exposed [place] significant heat at the [place] all day with dehydration - Lab Data Result diagrams: 01/16/23 19:33 01/16/23 19:33 Lab Results 01/16/23 01/16/23 01/16/23 Range/Units 19:33 19:33 19:33 WBC 11.2 H (3.8-10.6) k/uL RBC 3.61 L (3.80-5.40) m/uL Hgb 10.0 L (11.4-16.0) gm/dL Hct 29.7 L (34.0-46.0) % MCV 82.4 (80.0-100.0) fL MCH 27.8 (25.0-35.0) pg MCHC 33.8 (31.0-37.0) g/dL RDW 13.5 (11.5-15.5) % Plt Count 201 (150-450) k/uL MPV 9.5 Neutrophils % 76 % Lymphocytes % 16 % Monocytes % 5 % Eosinophils % 1 % Basophils % 0 % Neutrophils # 8.5 H (1.3-7.7) k/uL Lymphocytes # 1.8 (1.0-4.8) k/uL Monocytes # 0.6 (0-1.0) k/uL Eosinophils # 0.1 (0-0.7) k/uL Basophils # 0.0 (0-0.2) k/uL PT 10.0 (9.0-12.0) sec INR 0.9 (<1.2) APTT 22.5 (22.0-30.0) sec D-Dimer 0.93 H (<0.60) mg/L FEU Sodium 133 L (137-145) mmol/L Potassium 3.6 (3.5-5.1) mmol/L Chloride 105 (98-107) mmol/L Carbon Dioxide 21 L (22-30) mmol/L Anion Gap 7 mmol/L BUN 6 L (7-17) mg/dL Creatinine 0.42 L (0.52-1.04) mg/dL Est GFR (CKD-EPI)AfAm >90 (>60 ml/min/1.73 sqM) Est GFR (CKD-EPI)NonAf >90 (>60 ml/min/1.73 sqM) Glucose 88 (74-99) mg/dL Calcium 8.0 L (8.4-10.2) mg/dL Magnesium 1.7 (1.6-2.3) mg/dL Total Bilirubin 0.3 (0.2-1.3) mg/dL AST 18 (14-36) U/L ALT 12 (4-34) U/L Alkaline Phosphatase 56 (38-126) U/L Troponin I (0.000-0.034) ng/mL Total Protein 6.0 L (6.3-8.2) g/dL Albumin 3.2 L (3.5-5.0) g/dL Urine Color Urine Appearance (Clear) Urine pH (5.0-8.0) Ur Specific [place] (1.001-1.035) Urine Protein (Negative) Urine Glucose (UA) (Negative) Urine Ketones (Negative) Urine Blood (Negative) Urine Nitrite (Negative) Urine Bilirubin (Negative) Urine Urobilinogen (<2.0) mg/dL Ur Leukocyte Esterase (Negative) Urine RBC (0-5) /hpf Urine WBC (0-5) /hpf Ur Squamous Epith Cells (0-4) /hpf Urine Bacteria (None) /hpf Urine Mucus (None) /hpf 01/16/23 01/16/23 Range/Units 19:33 21:00 WBC (3.8-10.6) k/uL RBC (3.80-5.40) m/uL Hgb (11.4-16.0) gm/dL Hct (34.0-46.0) % MCV (80.0-100.0) fL MCH (25.0-35.0) pg MCHC (31.0-37.0) g/dL RDW (11.5-15.5) % Plt Count (150-450) k/uL MPV Neutrophils % % Lymphocytes % % Monocytes % % Eosinophils % % Basophils % % Neutrophils # (1.3-7.7) k/uL Lymphocytes # (1.0-4.8) k/uL Monocytes # (0-1.0) k/uL Eosinophils # (0-0.7) k/uL Basophils # (0-0.2) k/uL PT (9.0-12.0) sec INR (<1.2) APTT (22.0-30.0) sec D-Dimer (<0.60) mg/L FEU Sodium (137-145) mmol/L Potassium (3.5-5.1) mmol/L Chloride (98-107) mmol/L Carbon Dioxide (22-30) mmol/L Anion Gap mmol/L BUN (7-17) mg/dL Creatinine (0.52-1.04) mg/dL Est GFR (CKD-EPI)AfAm (>60 ml/min/1.73 sqM) Est GFR (CKD-EPI)NonAf (>60 ml/min/1.73 sqM) Glucose (74-99) mg/dL Calcium (8.4-10.2) mg/dL Magnesium (1.6-2.3) mg/dL Total Bilirubin (0.2-1.3) mg/dL AST (14-36) U/L ALT (4-34) U/L Alkaline Phosphatase (38-126) U/L Troponin I <0.012 (0.000-0.034) ng/mL Total Protein (6.3-8.2) g/dL Albumin (3.5-5.0) g/dL Urine Color Yellow Urine Appearance Clear (Clear) Urine pH 7.0 (5.0-8.0) Ur Specific [place] 1.010 (1.001-1.035) Urine Protein Trace H (Negative) Urine Glucose (UA) Negative (Negative) Urine Ketones Negative (Negative) Urine Blood Negative (Negative) Urine Nitrite Negative (Negative) Urine Bilirubin Negative (Negative) Urine Urobilinogen <2.0 (<2.0) mg/dL Ur Leukocyte Esterase Small H (Negative) Urine RBC 2 (0-5) /hpf Urine WBC 7 H (0-5) /hpf Ur Squamous Epith Cells 4 (0-4) /hpf Urine Bacteria Rare H (None) /hpf Urine Mucus Many H (None) /hpf - EKG Data -: EKG Interpreted by Me Disposition Clinical Impression: Dehydration, moderate, Vasovagal syncope, , Weakness, Syncope due to orthostatic hypotension, Dehydration, Intractable nausea and vomiting Disposition: HOME SELF-CARE Condition: Fair Instructions (If sedation given, give patient instructions): Syncope (ED) Is patient prescribed a controlled substance at d/c from ED?: No Referrals: Kevin Bautista MD [Primary Care Provider] - 1-2 days Time of Disposition: 21:45
[2023-01-16 20:27] LABS: Basophils % (A) 0 %; Eosinophils # (A) 0.1 k/uL (0-0.7); Eosinophils % (A) 1 %; HCT 29.7 % (34.0-46.0); Lymphocytes # (A) 1.8 k/uL (1.0-4.8); Lymphocytes % (A) 16 %; MCH 27.8 pg (25.0-35.0); MCHC 33.8 g/dL (31.0-37.0); MCV 82.4 fL (80.0-100.0); Mean Platelet Volume 9.5; Monocytes # (A) 0.6 k/uL (0-1.0); Monocytes % (A) 5 %; Neutrophils # (A) 8.5 k/uL (1.3-7.7); Neutrophils % (A) 76 %; Platelet Count 201 k/uL (150-450); RBC 3.61 m/uL (3.80-5.40); RDW 13.5 % (11.5-15.5); WBC 11.2 k/uL (3.8-10.6)
[2023-01-16 20:32] LABS: ALT 12 U/L (4-34); AST 18 U/L (14-36); African American GFR (CKD) >90 (>60 ml/min/1.73 sqM); Albumin 3.2 g/dL (3.5-5.0); Alkaline Phosphatase 56 U/L (38-126); Anion Gap 7 mmol/L; Blood Urea Nitrogen 6 mg/dL (7-17); Carbon Dioxide 21 mmol/L (22-30); Chloride 105 mmol/L (98-107); Glucose 88 mg/dL (74-99); Magnesium 1.7 mg/dL (1.6-2.3); Non-African American GFR(CKD) >90 (>60 ml/min/1.73 sqM); Potassium 3.6 mmol/L (3.5-5.1); Sodium 133 mmol/L (137-145); Total Bilirubin 0.3 mg/dL (0.2-1.3)
[2023-01-16 20:40] LABS: INR 0.9 (<1.2); Partial Thromboplastin Time 22.5 sec (22.0-30.0)
[2023-01-16 21:16] LABS: Appearance,Urine Clear (Clear); Bacteria,Urine Rare /hpf; Bilirubin,Urine Negative (Negative); Blood,Urine Negative (Negative); Color,Urine Yellow; Glucose,Urine (UA) Negative (Negative); Ketones,Urine Negative (Negative); Leukocyte Esterase,Urine Small (Negative); Mucus,Urine Many /hpf; Nitrite,Urine Negative (Negative); Protein,Urine Trace (Negative); RBC,Urine 2 /hpf (0-5); Squamous Epithelial Cell,Urine 4 /hpf (0-4); Urobilinogen,Urine <2.0 mg/dL (<2.0); WBC,Urine 7 /hpf (0-5)
[2023-01-16 22:19] VITALS: BP 113/63
== END 2023-01-16 22:37 | disposition home or self-care (01) ==
LOC: EC 19:11
DX: O26.812 Pregnancy related exhaustion and fatigue, second trimester (principal); O99.282 Endocrine, nutritional and metabolic diseases complicating pregnancy, second trimester; O99.342 Other mental disorders complicating pregnancy, second trimester; O99.891 Other specified diseases and conditions complicating pregnancy; I95.1 Orthostatic hypotension; E86.0 Dehydration; I10 Essential (primary) hypertension; Z86.59 Personal history of other mental and behavioral disorders; Z87.891 Personal history of nicotine dependence; Z88.8 Allergy status to other drugs, medicaments and biological substances; Z3A.17 17 weeks gestation of pregnancy
CPT/HCPCS: 36415; 80053; 81001; 83735; 84484; 85025; 85379; 85610; 85730; 93005; 96360; 99284

== ENCOUNTER 2023-03-22 12:08 | Outpatient (CLI) | payer OTHER ==
[2023-03-22 12:52] LABS: Appearance,Urine Clear (Clear); Bacteria,Urine Occasional /hpf; Bilirubin,Urine Negative (Negative); Blood,Urine Negative (Negative); Color,Urine Colorless; Glucose,Urine (UA) Negative (Negative); Ketones,Urine Negative (Negative); Leukocyte Esterase,Urine Small (Negative); Nitrite,Urine Negative (Negative); Protein,Urine Negative (Negative); RBC,Urine <1 /hpf (0-5); Specific Gravity,Urine 1.008 (1.001-1.035); Squamous Epithelial Cell,Urine 1 /hpf (0-4); Urobilinogen,Urine <2.0 mg/dL (<2.0); WBC,Urine 4 /hpf (0-5)
[2023-03-22 13:25] VITALS: BP 108/70; PULSE 81; RESP 16; TEMP 96.7
--- NOTE | 2023-03-23 06:49 | P.MSEPDOC ---
Presenting Problems - Arrival Data Date of Arrival on Unit: 03/22/23 Time of Arrival on Unit: 12:08 Mode of Transport: Ambulatory - Complaint OB-Reason for Admission/Chief Complaint: Pain Comment: cramping (7 out of 10 on pain scale), and loose stool, urinary frequency Medical History - Information : 3 Para: 2 Term: 2 : 0 Abortions: Spontaneous or Elective: 0 Number of Living Children: 2 - Gestational Age Gestational Age by JORDI (wks/days): 27 Weeks and 0 Days - History Complications: Hx. Substance Abuse Comment: THC Review of Systems - Review of Systems Constitutional: No problems Breast: No problems ENT: No problems Cardiovascular: No problems Respiratory: No problems Gastrointestinal: Diarrhea, Pain Genitourinary: Increased frequency Musculoskeletal: No problems Neurological: No problems Skin: No problems Vital Signs - Temperature Temperature: 96.7 F Temperature Source: Temporal Artery Scan - Pulse Right Sitting Pulse Rate: 81 Pulse Assessment Method: Automatic Cuff - Respirations Respiratory Rate: 16 Oxygen Delivery Method: Room Air - Blood Pressure Right Arm Blood Pressure: 108/70 Blood Pressure Mean: 82 Blood Pressure Source: Automatic Cuff Medical Screen Scoring - Assessment - Baby A Baseline FHR: 130 Heart Rate - NICHD Category: Category I (Normal) Maternal Triage Index - Non-Urgent/Priority 4 Non-Urgent Priority 4: Yes Criteria Met for Priority 4: cramping (7 out of 10 on pain scale), and loose st ool, urinary frequency Disposition - Disposition OB Disposition: Discharge to home, Written follow up instructions reviewed Discharge Date: 03/22/23 Discharge Time: 13:17 I agree with the RN Medical Screening Exam: Yes Case reviewed; plan agreed upon as documented in EMR&OBIX.: Yes Diagnosis: RELATED CONDITIONS, UNSPECIFIED, SECOND TRIMESTER
== END 2023-03-22 13:17 | disposition home or self-care (01) ==
LOC: FBPOP 12:08
PROVIDERS: ATTEND Obstetrics & Gynecology
DX: O26.892 Other specified pregnancy related conditions, second trimester (principal); R25.2 Cramp and spasm; R35.0 Frequency of micturition; R52 Pain, unspecified; Z3A.27 27 weeks gestation of pregnancy; Z88.8 Allergy status to other drugs, medicaments and biological substances
CPT/HCPCS: 81001; G0463; 99213

== ENCOUNTER 2023-04-16 14:00 | Outpatient (CLI) | payer OTHER ==
[2023-04-16 15:00] LABS: Appearance,Urine Cloudy (Clear); Bacteria,Urine Many /hpf; Bilirubin,Urine Negative (Negative); Blood,Urine Small (Negative); Color,Urine Colorless; Glucose,Urine (UA) Negative (Negative); Ketones,Urine Negative (Negative); Leukocyte Esterase,Urine Large (Negative); Mucus,Urine Rare /hpf; Nitrite,Urine Negative (Negative); Protein,Urine Trace (Negative); RBC,Urine 30 /hpf (0-5); Specific Gravity,Urine 1.013 (1.001-1.035); Squamous Epithelial Cell,Urine 6 /hpf (0-4); Urobilinogen,Urine <2.0 mg/dL (<2.0); WBC,Urine 133 /hpf (0-5)
[2023-04-16 15:40] VITALS: BP 110/77; PULSE 108; RESP 16; TEMP 96.6
== END 2023-04-16 15:22 | disposition home or self-care (01) ==
LOC: FBPOP 14:00
PROVIDERS: ATTEND Obstetrics & Gynecology
DX: Z53.9 Procedure and treatment not carried out, unspecified reason (principal)
CPT/HCPCS: 59025; 81001; G0463; 99213

== ENCOUNTER 2023-06-03 06:13 | Outpatient (CLI) | payer OTHER ==
[2023-06-03] MEDS ORDERED: ONDANSETRON 4 MG/2 ML VIAL IVP STA (07:04)
[2023-06-03] MEDS: LACTATED RINGERS 1,000 ML IV SCH ×3 (07:05→09:07)
[2023-06-03 07:31] LABS: Basophils # (A) 0.1 k/uL (0-0.2); Basophils % (A) 1 %; Eosinophils % (A) 0 %; HCT 34.6 % (34.0-46.0); HGB 11.3 gm/dL (11.4-16.0); Hypochromasia Slight; Lymphocytes # (A) 0.6 k/uL (1.0-4.8); Lymphocytes % (A) 7 %; MCH 23.7 pg (25.0-35.0); MCHC 32.6 g/dL (31.0-37.0); MCV 72.8 fL (80.0-100.0); Mean Platelet Volume 10.7; Microcytosis Moderate; Monocytes # (A) 0.4 k/uL (0-1.0); Monocytes % (A) 5 %; Neutrophils # (A) 6.8 k/uL (1.3-7.7); Neutrophils % (A) 86 %; Platelet Count 231 k/uL (150-450); RBC 4.75 m/uL (3.80-5.40); RDW 15.5 % (11.5-15.5); WBC 7.9 k/uL (3.8-10.6)
[2023-06-03] MEDS ORDERED: BENZOCAINE/MENTHOL LOZENG 1 EACH LOZENGE MUCOUS MEM PRN (07:36)
[2023-06-03 07:46] LABS: ALT 19 U/L (4-34); AST 30 U/L (14-36); African American GFR (CKD) >90 (>60 ml/min/1.73 sqM); Albumin 4.1 g/dL (3.5-5.0); Alkaline Phosphatase 189 U/L (38-126); Anion Gap 14 mmol/L; Blood Urea Nitrogen 12 mg/dL (7-17); Calcium 9.1 mg/dL (8.4-10.2); Carbon Dioxide 17 mmol/L (22-30); Chloride 103 mmol/L (98-107); Glucose 98 mg/dL (74-99); Non-African American GFR(CKD) >90 (>60 ml/min/1.73 sqM); Sodium 134 mmol/L (137-145); Total Bilirubin 0.7 mg/dL (0.2-1.3); Total Protein 7.7 g/dL (6.3-8.2)
[2023-06-03 07:47] VITALS: BP 111/75
[2023-06-03 08:25] LABS: Bacteria,Urine Rare /hpf; Mucus,Urine Many /hpf; RBC,Urine 2 /hpf (0-5); Squamous Epithelial Cell,Urine 8 /hpf (0-4); WBC,Urine 12 /hpf (0-5)
[2023-06-03 08:26] LABS: Appearance,Urine Slightly Cloudy (Clear); Color,Urine Light Orange; Specific Gravity,Urine >1.030 (1.001-1.035)
[2023-06-03 08:27] LABS: Bilirubin,Urine 1+ (Negative); Blood,Urine Trace (Negative); Glucose,Urine (UA) Negative (Negative); Ketones,Urine 4+ (Negative); Leukocyte Esterase,Urine Moderate (Negative); Nitrite,Urine Negative (Negative); Protein,Urine 2+ (Negative)
--- NOTE | 2023-06-03 08:59 | P.MSEPDOC ---
Presenting Problems - Arrival Data Date of Arrival on Unit: 06/03/23 Time of Arrival on Unit: 06:13 Mode of Transport: Wheelchair - Complaint OB-Reason for Admission/Chief Complaint: Acute Nausea/Vomiting Comment: pt. presents to triage due to vomiting since 1999 tonight, then started vomiting up some blood at 0400, pt. also has a sore throat, lower back 610 that comes and goes. pt. states she has had hyperemesis this , pt. smokes thc but hasn't smoked in 2 days, pt. also states she hasnt felt the baby move in 2 hours. Medical History - Information : 3 Para: 2 Term: 2 : 0 Abortions: Spontaneous or Elective: 0 Number of Living Children: 2 - Gestational Age Gestational Age by JORDI (wks/days): 37 Weeks and 3 Days - History Complications: Smoker Comment: smokes THC Review of Systems - Review of Systems Constitutional: No problems Breast: No problems ENT: No problems, Sore throat Cardiovascular: No problems Respiratory: No problems Gastrointestinal: No problems Genitourinary: No problems Musculoskeletal: No problems Neurological: No problems Skin: No problems Vital Signs - Temperature Temperature: 98.5 F Temperature Source: Oral - Pulse Pulse Oximetery Pulse Rate: 148 Pulse Assessment Method: Automatic Cuff - Respirations Respiratory Rate: 18 Oxygen Delivery Method: Room Air O2 Sat by Pulse Oximetry: 97 - Blood Pressure Right Arm Blood Pressure: 111/75 Blood Pressure Mean: 87 Blood Pressure Source: Automatic Cuff Medical Screen Scoring - Cervical Exam Dilation (cm): 1 Effacement (%): 60 Station: -2 Membranes: Intact - Assessment - Baby A Baseline FHR: 130 Heart Rate - NICHD Category: Category I (Normal) NST: Reactive Physician Notification - Physician Notified Physician Notified Date: 06/03/23 Physician Notified Time: 06:40 Physician: Court Parmar New Order Received: Yes - Notification Comment Comment: order for urinalysis, LR fluid bolus, CBC,CMP,urine drug screen, COVID and flu swab, zofran 4mg IVP. Maternal Triage Index - Maternal Triage Index Presenting for scheduled procedure w/no complaint: No - Stat/Priority 1 Stat Priority 1: No - Urgent/Priority 2 Urgent Priority 2: Yes Provider Notified: Court Parmar Provider Notified Time: 06:40 Criteria Met for Priority 2: pt. is 37.3, vomiting since 199906/02/23, Lower back pain 12/10. maternal HR 150-140's. Disposition - Disposition OB Disposition: Triage I agree with the RN Medical Screening Exam: Yes Physician's MSE Comment: Patient will be discharged with a few doses of Zofran ODT. She is advised to isolate for at least 5 days from the beginning of her symptoms. She may return to the hospital if symptoms worsen. Case reviewed; plan agreed upon as documented in EMR&OBIX.: Yes Diagnosis: COVID-19 Additional Diagnoses: Dehydration
[2023-06-03 09:12] LABS: Amphetamine Screen,Urine Not Detected (NotDetected); Barbiturate Screen,Urine Not Detected (NotDetected); Benzodiazepines Screen,Urine Not Detected (NotDetected); Cocaine Screen,Urine Not Detected (NotDetected); Methadone Screen, Urine Not Detected (NotDetected); Opiate Screen,Urine Not Detected (NotDetected); Oxycodone Screen, Urine Not Detected (NotDetected); Phencyclidine Screen,Urine Not Detected (NotDetected); Tricyclic Antidepressant,Urine Not Detected (NotDetected); Urn Cannabinoid Scrn Detected (NotDetected)
[2023-06-03 10:32] VITALS: PULSE 100; RESP 19; TEMP 97.6
== END 2023-06-03 09:55 | disposition home or self-care (01) ==
LOC: FBPOP 06:13
PROVIDERS: ATTEND Obstetrics & Gynecology
DX: O21.1 Hyperemesis gravidarum with metabolic disturbance (principal); O99.333 Smoking (tobacco) complicating pregnancy, third trimester; F17.290 Nicotine dependence, other tobacco product, uncomplicated; Z3A.37 37 weeks gestation of pregnancy; Z88.8 Allergy status to other drugs, medicaments and biological substances
CPT/HCPCS: 59025; 96361; 96374; 36415; 80053; 85025; 81001; 80306; 87636; G0463; J2405; 99214

== ENCOUNTER 2023-06-10 21:05 | Outpatient (CLI) | payer OTHER ==
[2023-06-10 22:49] VITALS: BP 115/77; PULSE 96; RESP 16; TEMP 97.3
--- NOTE | 2023-06-11 07:34 | P.MSEPDOC ---
Presenting Problems - Arrival Data Date of Arrival on Unit: 06/10/23 Time of Arrival on Unit: 21:05 Mode of Transport: Wheelchair - Complaint OB-Reason for Admission/Chief Complaint: Rule Out SROM Comment: possible srom at 1999 Medical History - Information : 3 Para: 2 Term: 2 : 0 Abortions: Spontaneous or Elective: 0 Number of Living Children: 2 - Gestational Age Gestational Age by JORDI (wks/days): 38 Weeks and 3 Days Review of Systems - Review of Systems Constitutional: No problems Breast: No problems ENT: No problems Cardiovascular: No problems Respiratory: No problems Gastrointestinal: No problems Genitourinary: Increased frequency Musculoskeletal: No problems Neurological: No problems Skin: No problems Vital Signs - Temperature Temperature: 97.3 F Temperature Source: Oral - Pulse Right Sitting Pulse Rate: 96 Pulse Assessment Method: Automatic Cuff - Respirations Respiratory Rate: 16 Oxygen Delivery Method: Room Air O2 Sat by Pulse Oximetry: 97 - Blood Pressure Right Arm Sitting Blood Pressure: 115/77 Blood Pressure Mean: 89 Blood Pressure Source: Automatic Cuff Medical Screen Scoring - Cervical Exam Dilation (cm): 2 Effacement (%): 50 Station: -3 Membranes: Intact - Uterine Contractions Frequency From (mins): 1 Frequency To (mins): 4 Duration From (seconds): 30 Duration To (seconds): 50 Intensity: Mild Resting: Soft to palpation - Assessment - Baby A Baseline FHR: 125 Heart Rate - NICHD Category: Category I (Normal) NST: Reactive Physician Notification - Physician Notified Physician Notified Date: 06/10/23 Physician Notified Time: 21:45 Physician: Dr Kumar New Order Received: Yes (Pt may be discharged home. Pt sced for elective IOL 06/14) - Notification Comment Comment: Possible srom at 1999. Amnisure negative. Irregular contractions with irritability in between. 50/-3 (no change from exam in the office). Moderate amt of discharge noted with vag exam. Pt is sced for IOL on 06/14. Pt instructed to increase fluid intake preferably water. Maternal Triage Index - Maternal Triage Index Presenting for scheduled procedure w/no complaint: No - Stat/Priority 1 Stat Priority 1: No - Urgent/Priority 2 Urgent Priority 2: No - Prompt/Priority 3 Prompt Priority 3: No - Non-Urgent/Priority 4 Non-Urgent Priority 4: Yes Criteria Met for Priority 4: Possible srom at 1999, irregular contractions, /-3 Disposition - Disposition OB Disposition: Discharge to home, Written follow up instructions reviewed Discharge Date: 06/10/23 Discharge Time: 21:54 I agree with the RN Medical Screening Exam: Yes Case reviewed; plan agreed upon as documented in EMR&OBIX.: Yes Diagnosis: FALSE LABOR AT OR AFTER 37 COMPLETED WEEKS OF GESTATION
== END 2023-06-10 21:54 | disposition home or self-care (01) ==
LOC: FBPOP 21:05
PROVIDERS: ATTEND Obstetrics & Gynecology
DX: O47.1 False labor at or after 37 completed weeks of gestation (principal); Z3A.38 38 weeks gestation of pregnancy; Z88.6 Allergy status to analgesic agent
CPT/HCPCS: 59025; 84112; 99213

== ENCOUNTER 2023-06-13 07:08 | Inpatient (IN) | payer OTHER ==
[2023-06-13] MEDS ORDERED: TRANEXAMIC 1,000 MG/100ML-NACL 1,000 MG in EMPTY BAG 1 BAG IV PRN (07:30)
[2023-06-13] MEDS ORDERED: OXYTOCIN 10 UNIT/ML 1 ML VIAL IM PRN (07:30)
[2023-06-13] MEDS ORDERED: LACTATED RINGERS 1,000 ML IV SCH (07:30)
[2023-06-13] MEDS ORDERED: AMPICILLIN 2,000 MG in SODIUM CHLORIDE 0.9% 100 ML IVPB STA (07:30)
[2023-06-13] MEDS ORDERED: LIDOCAINE 0.5% (PF) 5 MG/ML (50 ML SDV) SQ PRN (07:30)
[2023-06-13] MEDS ORDERED: OXYTOCIN 30 UNITS/500 ML NS 30 UNIT in SALINE 1 500ML.BAG IV SCH ×2 (07:30→08:30)
[2023-06-13] MEDS ORDERED: TERBUTALINE 1 MG/ML VIAL SQ PRN (07:30)
[2023-06-13] MEDS ORDERED: CARBOPROST TROMETHAMINE 250 MCG/ML 1 ML AMP IM PRN (07:30)
[2023-06-13] MEDS ORDERED: miSOPROStoL 200 MCG TAB PO PRN (07:30)
[2023-06-13] MEDS ORDERED: METHYLERGONOVINE 0.2 MG/ML 1 ML AMP IM PRN (07:30)
[2023-06-13] MEDS ORDERED: ZOLPIDEM 5 MG TAB PO PRN (08:20)
[2023-06-13] MEDS ORDERED: diphenhydrAMINE 50 MG/ML 1 ML VIAL IVP PRN (08:20)
[2023-06-13] MEDS ORDERED: HYDROCORTISONE 2.5% RECTAL CREAM 30 GM TUBE RECTAL PRN (08:20)
[2023-06-13] MEDS ORDERED: BENZOCAINE/MENTHOL SPRAY 1 GM/SPRAY AEROSOL TOPICAL PRN (08:20)
[2023-06-13] MEDS ORDERED: LANOLIN CREAM 5 GM TUBE TOPICAL PRN (08:20)
[2023-06-13] MEDS ORDERED: bisacodyL 10 MG SUPP RECTAL PRN (08:20)
[2023-06-13] MEDS ORDERED: SIMETHICONE 80 MG CHEWABLE PO PRN (08:20)
[2023-06-13] MEDS ORDERED: diphenhydrAMINE 25 MG CAP PO PRN (08:20)
--- NOTE | 2023-06-13 08:25 | P.HPOB ---
History of Present Illness H&P Date: 06/13/23 Chief Complaint: Contractions This patient is a pleasant 23-year-old 3 para 2 female estimated date of confinement 06/21/2023 estimated gestational age 38-6/7 weeks who presents to labor and delivery with complaints of contractions since 4:30 this morning. On arrival patient 6 cm dilated in active labor. care is complicated by a transfer at 20 weeks. Otherwise uncomplicated. Review of Systems Genitourinary: Reports Menstruation: Reports amenorrhea Past Medical History Past Medical History: No Reported History Additional Past Medical History / Comment(s): hyperflexibility of the joints, previous shoulder dislocation History of Any Multi-Drug Resistant Organisms: None Reported Past Surgical History: No Surgical Hx Reported Additional Past Surgical History / Comment(s): [place] tooth extraction Past Anesthesia/Blood Transfusion Reactions: No Reported Reaction Additional Past Anesthesia/Blood Transfusion Reaction / Comment(s): no hx of blood transfusion, no surgery history. Past Psychological History: ADD/ADHD, Anxiety, Bipolar, Depression, PTSD Additional Psychological History / Comment(s): concerta 30mg daily -not currently taking Smoking Status: Current every day smoker Past Alcohol Use History: None Reported Past Drug Use History: None Reported Additional Drug Use History / Comment(s): Was using marijuanna periodically, not current. Drinks 1 drink a month. smoked here and there not any more. - Past Family History Mother Family Medical History: Thyroid Disorder Additional Family Medical History / Comment(s): mom with hypothyroid and hyp oglycemia Sister(s) Family Medical History: Asthma Additional Family Medical History / Comment(s): POTS disease, van wilenbran, Medications and Allergies Allergies Allergy/AdvReac Type Severity Reaction Status Date / Time cyclobenzaprine HCl AdvReac HYPER Verified 06/13/23 07:26 [From Flexeril] Exam Intake and Output 06/12/23 06/13/23 06/13/23 22:59 06:59 14:59 Other: Weight 61.689 kg - OBG Physical Exam Abdomen: bowel sounds normal, no diffuse tenderness, no bruit present, no guarding noted, no hepatomegaly, no splenomegaly, no mass Vulva: both: normal Cervix: no lesion, no discharge Uterus: enlarged, normal contour Results labs show she is O negative, rubella immune, RPR nonreactive, hepatitis B and C are negative, Glucola was normal, group B strep was positive, ultrasounds have been normal. Assessment and Plan Assessment: This is a pleasant 23-year-old 3 para 2 female 38-6/7 weeks' gestation in active labor. Plan is group B strep prophylaxis and anticipate vaginal delivery. (1) 38 weeks gestation of Current Visit: Yes Status: Acute Code(s): Z3A.38 - 38 WEEKS GESTATION OF SNOMED Code(s): 52277773 (2) Normal labor Current Visit: Yes Status: Acute Code(s): O80 - ENCOUNTER FOR FULL-TERM UNCOMPLICATED DELIVERY; Z37.9 - OUTCOME OF DELIVERY, UNSPECIFIED SNOMED Code(s): 63140418 (3) Group B streptococcal carriage complicating Current Visit: Yes Status: Acute Code(s): O99.820 - STREPTOCOCCUS B CARRIER STATE COMPLICATING SNOMED Code(s): 078461867689597 (4) Rh negative status during Current Visit: Yes Status: Acute Code(s): O26.899 - OTH RELATED CONDITIONS, UNSPECIFIED TRIMESTER; Z67.91 - UNSPECIFIED BLOOD TYPE, RH NEGATIVE SNOMED Code(s): 967956011
--- NOTE | 2023-06-13 08:27 | P.PROBDLV ---
Vaginal Delivery Note - . Vaginal Delivery Note: Normal spontaneous vaginal delivery viable male infant Apgars 9 and 9 delivery time is 0746 hrs. Please see dictated H&P for intimate details of this patient's admission. In brief summary is a pleasant 23-year-old 3 para 2 female 38-6/7 weeks gestation who is admitted in active labor. Patient is IV placed antibiotics given quickly gets to 8 cm. She has artificial rupture membranes this time for clear fluid. Moment her labor thereafter, she pushes the head to the perineum. Posterior perineum is supported and we have fairly well controlled delivery of 's head over the perineum. Also nares are bulb suctioned. There is no evidence of a nuchal cord. Patient continues to push and deliver is rest this 's body. This is a vigorous viable male infant Apgars 9 and 9 delivery time was 0746 hours. After delivery of the infant the umbilical cord is allowed quit pulsating is then doubly clamped and cut. Placenta spontaneously delivered intact. Inspection of perineum shows no laceration and no repairs required. All counts are correct 3. There are no complications. Infant and mother are stable delivery room.
[2023-06-13] MEDS: IBUPROFEN 600 MG TAB PO PRN ×2 (08:34→16:30)
[2023-06-13] MEDS: ACETAMINOPHEN TAB 325 MG TAB PO PRN ×2 (09:47→18:01)
[2023-06-13] MEDS ORDERED: AMPICILLIN 1,000 MG in SODIUM CHLORIDE 0.9% 50 ML IVPB SCH (11:30)
[2023-06-13 12:32] LABS: Basophils # (A) 0.1 k/uL (0-0.2); Basophils % (A) 0 %; Eosinophils # (A) 0.1 k/uL (0-0.7); Eosinophils % (A) 1 %; HCT 37.7 % (34.0-46.0); Hypochromasia Moderate; Lymphocytes # (A) 3.6 k/uL (1.0-4.8); Lymphocytes % (A) 25 %; MCH 23.4 pg (25.0-35.0); MCHC 31.9 g/dL (31.0-37.0); MCV 73.4 fL (80.0-100.0); Mean Platelet Volume 13.6; Microcytosis Slight; Monocytes # (A) 0.9 k/uL (0-1.0); Monocytes % (A) 7 %; Neutrophils # (A) 9.4 k/uL (1.3-7.7); Neutrophils % (A) 65 %; RBC 5.13 m/uL (3.80-5.40); RDW 15.5 % (11.5-15.5); WBC 14.3 k/uL (3.8-10.6)
[2023-06-13 12:34] LABS: Platelet Count 311 k/uL (150-450)
[2023-06-13 13:30] LABS: Large Platelets Present
[2023-06-13 14:19] LABS: Amphetamine Screen,Urine Not Detected (NotDetected); Barbiturate Screen,Urine Not Detected (NotDetected); Benzodiazepines Screen,Urine Not Detected (NotDetected); Cocaine Screen,Urine Not Detected (NotDetected); Methadone Screen, Urine Not Detected (NotDetected); Opiate Screen,Urine Not Detected (NotDetected); Oxycodone Screen, Urine Not Detected (NotDetected); Phencyclidine Screen,Urine Not Detected (NotDetected); Tricyclic Antidepressant,Urine Not Detected (NotDetected); Urn Cannabinoid Scrn Detected (NotDetected)
--- NOTE | 2023-06-13 17:26 | P.MSEPDOC ---
Presenting Problems - Arrival Data Date of Arrival on Unit: 06/13/23 Time of Arrival on Unit: 07:10 Mode of Transport: Wheelchair - Complaint OB-Reason for Admission/Chief Complaint: Possible Onset of Labor Comment: pt presents to [facility] with contractions that started at 0430 this morning Medical History - Information : 3 Para: 2 Term: 2 : 0 Abortions: Spontaneous or Elective: 0 Number of Living Children: 2 - Gestational Age Gestational Age by JORDI (wks/days): 38 Weeks and 6 Days Review of Systems - Review of Systems Constitutional: No problems Breast: No problems ENT: No problems Cardiovascular: No problems Respiratory: No problems Gastrointestinal: No problems Genitourinary: No problems Musculoskeletal: No problems Neurological: No problems Skin: No problems Vital Signs - Temperature Temperature: 98.4 F - Pulse Pulse Oximetery Pulse Rate: 74 Pulse Assessment Method: Automatic Cuff - Respirations Respiratory Rate: 16 Oxygen Delivery Method: Room Air O2 Sat by Pulse Oximetry: 98 - Blood Pressure Right Arm Blood Pressure: 115/65 Blood Pressure Mean: 81 Blood Pressure Source: Automatic Cuff Medical Screen Scoring - Cervical Exam Dilation (cm): 7 Effacement (%): 90 Station: -2 Membranes: Intact - Assessment - Baby A Baseline FHR: 120 Heart Rate - NICHD Category: Category I (Normal) NST: Reactive Physician Notification - Physician Notified Physician Notified Date: 06/13/23 Physician Notified Time: 07:20 Physician: Ammon Kumar Order Received: Yes - Notification Comment Comment: admit pt for labor Maternal Triage Index - Maternal Triage Index Presenting for scheduled procedure w/no complaint: No - Stat/Priority 1 Stat Priority 1: No - Urgent/Priority 2 Urgent Priority 2: No - Prompt/Priority 3 Prompt Priority 3: Yes Criteria Met for Priority 3: pt present in active labor 6-7 cm 38 6/7 weeks Disposition - Disposition OB Disposition: Admit Transferred to:: 1 I agree with the RN Medical Screening Exam: Yes Case reviewed; plan agreed upon as documented in EMR&OBIX.: Yes Diagnosis: ENCOUNTER FOR FULL-TERM UNCOMPLICATED DELIVERY
[2023-06-13] MEDS: SENNOSIDES-DOCUSATE SODIUM 1 EACH TAB PO SCH (22:22)
--- NOTE | 2023-06-14 06:38 | P.PNOBGVD ---
Subjective - Subjective Patient reports: Reports appetite normal, Reports voiding normally, Reports pain well controlled, Reports ambulating normally : doing well, in NICU Objective - Latest Vital Signs Latest vital signs: Vital Signs Temp Pulse Resp BP Pulse Ox 06/13/23 23:53 98.5 F 82 18 103/64 06/13/23 17:26 98.4 F 74 16 115/65 98 06/13/23 15:49 98.4 F 74 16 115/65 98 06/13/23 12:45 98.5 F 80 16 105/70 98 06/13/23 10:01 62 16 117/85 06/13/23 09:31 72 16 122/82 06/13/23 09:01 68 16 122/83 06/13/23 08:46 68 16 124/82 06/13/23 08:31 65 16 126/80 99 06/13/23 08:16 74 16 121/86 99 06/13/23 08:01 97.4 F L 79 16 132/87 97 Intake and Output 06/13/23 06/13/23 06/14/23 14:59 22:59 06:59 Intake Total 500.000 Output Total 385 Balance 115.000 Intake: Intake, IV Titration 500.000 Amount Oxytocin 30 Units/500 ml 500.000 Ns 30 unit In Saline 1 500ml.bag @ Per Protocol IV .[facility] Rx#:[id number] Output: Estimated Blood Loss 100 Output, Quantitative 285 Blood Loss Other: # Voids 1 Weight 61.689 kg - Exam Lungs: bilateral: normal Chest: Normal S1, Normal S2 Extremities: Present: normal Abdomen: Present: normal appearance, soft Uterus: Present: normal, firm - Labs Labs: Abnormal Lab Results - Last 24 Hours (Table) 06/13/23 06/13/23 Range/Units 07:37 12:15 WBC 14.3 H (3.8-10.6) k/uL MCV 73.4 L (80.0-100.0) fL MCH 23.4 L (25.0-35.0) pg Neutrophils # 9.4 H (1.3-7.7) k/uL U Marijuana (THC) Screen Detected H (NotDetected) Assessment and Plan Assessment: day #1. Patient is resting without complaints. Vital signs are stable she's afebrile. Her baby is in the nursery for antibiotics awaiting culture results. Plan today is to check a CBC, continue ambulation, and continue routine care. (1) 38 weeks gestation of Current Visit: Yes Status: Acute Code(s): Z3A.38 - 38 WEEKS GESTATION OF SNOMED Code(s): 65313343 (2) Normal labor Current Visit: Yes Status: Acute Code(s): O80 - ENCOUNTER FOR FULL-TERM UNCOMPLICATED DELIVERY; Z37.9 - OUTCOME OF DELIVERY, UNSPECIFIED SNOMED Code(s): 35408517 (3) Group B streptococcal carriage complicating Current Visit: Yes Status: Acute Code(s): O99.820 - STREPTOCOCCUS B CARRIER STATE COMPLICATING SNOMED Code(s): 335075342651744 (4) Rh negative status during Current Visit: Yes Status: Acute Code(s): O26.899 - OTH RELATED CONDITIONS, UNSPECIFIED TRIMESTER; Z67.91 - UNSPECIFIED BLOOD TYPE, RH NEGATIVE SNOMED Code(s): 870808056
[2023-06-14] MEDS: ACETAMINOPHEN TAB 325 MG TAB PO PRN ×2 (07:20→14:28)
[2023-06-14 07:41] LABS: Basophils # (A) 0.1 k/uL (0-0.2); Basophils % (A) 1 %; Eosinophils # (A) 0.1 k/uL (0-0.7); Eosinophils % (A) 1 %; HCT 29.9 % (34.0-46.0); Hypochromasia Moderate; Lymphocytes # (A) 2.6 k/uL (1.0-4.8); Lymphocytes % (A) 23 %; MCH 23.4 pg (25.0-35.0); MCHC 31.7 g/dL (31.0-37.0); MCV 73.7 fL (80.0-100.0); Mean Platelet Volume 9.5; Microcytosis Slight; Monocytes # (A) 0.5 k/uL (0-1.0); Monocytes % (A) 5 %; Neutrophils # (A) 7.6 k/uL (1.3-7.7); Neutrophils % (A) 69 %; Platelet Count 165 k/uL (150-450); RBC 4.05 m/uL (3.80-5.40); RDW 15.4 % (11.5-15.5)
[2023-06-14 08:03] LABS: HGB 9.5 gm/dL (11.4-16.0)
[2023-06-14] MEDS: SENNOSIDES-DOCUSATE SODIUM 1 EACH TAB PO SCH (08:09)
[2023-06-14] MEDS: IBUPROFEN 600 MG TAB PO PRN (11:00)
[2023-06-15] MEDS: SENNOSIDES-DOCUSATE SODIUM 1 EACH TAB PO SCH ×2 (00:33→08:30)
--- NOTE | 2023-06-15 06:31 | P.PNOBGVD ---
Subjective - Subjective Patient reports: Reports appetite normal, Reports voiding normally, Reports pain well controlled, Reports ambulating normally : doing well, in NICU Objective - Latest Vital Signs Latest vital signs: Vital Signs Temp Pulse Resp BP Pulse Ox 06/14/23 23:43 98.1 F 67 18 110/77 97 06/14/23 18:53 129/89 06/14/23 16:27 98.1 F 81 16 89/52 97 06/14/23 08:01 97.8 F 74 16 97/63 98 - Exam Lungs: bilateral: normal Chest: Normal S1, Normal S2 Extremities: Present: normal Abdomen: Present: normal appearance, soft Uterus: Present: normal, firm - Labs Labs: Abnormal Lab Results - Last 24 Hours (Table) 06/14/23 Range/Units 07:03 WBC 11.0 H (3.8-10.6) k/uL Hgb 9.5 L D (11.4-16.0) gm/dL Hct 29.9 L (34.0-46.0) % MCV 73.7 L (80.0-100.0) fL MCH 23.4 L (25.0-35.0) pg Assessment and Plan Assessment: Post day #2. Patient is resting without complaints. Vital signs are stable she is afebrile. Uterus is firm nontender she is having normal lochia. My impression this is a normal course. Plan is to continue routine care discharge home later today. (1) 38 weeks gestation of Current Visit: Yes Status: Acute Code(s): Z3A.38 - 38 WEEKS GESTATION OF SNOMED Code(s): 90476420 (2) Normal labor Current Visit: Yes Status: Acute Code(s): O80 - ENCOUNTER FOR FULL-TERM UNCOMPLICATED DELIVERY; Z37.9 - OUTCOME OF DELIVERY, UNSPECIFIED SNOMED Code(s): 99990127 (3) Group B streptococcal carriage complicating Current Visit: Yes Status: Acute Code(s): O99.820 - STREPTOCOCCUS B CARRIER STATE COMPLICATING SNOMED Code(s): 111516331200273 (4) Rh negative status during Current Visit: Yes Status: Acute Code(s): O26.899 - OTH RELATED CONDITIONS, UNSPECIFIED TRIMESTER; Z67.91 - UNSPECIFIED BLOOD TYPE, RH NEGATIVE SNOMED Code(s): 083454222
--- NOTE | 2023-06-15 06:35 | P.DS ---
Providers Date of admission: 06/13/23 07:28 Expected date of discharge: 06/15/23 Attending physician: Ammon Kumar Primary care physician: Stated None - Discharge Diagnosis(es) (1) 38 weeks gestation of Current Visit: Yes Status: Acute (2) Normal labor Current Visit: Yes Status: Acute (3) Group B streptococcal carriage complicating Current Visit: Yes Status: Acute (4) Rh negative status during Current Visit: Yes Status: Acute Hospital Course: Please see dictated H&P and delivery note on this patient's admission and delivery. In brief summary this is a pleasant 23-year-old 3 para 2 female 38-6/7 weeks gestation who is admitted to labor and delivery in active labor. Patient quickly goes on to have a vaginal delivery of viable male infant. Please see dictated delivery note. day #2 patient's felt to be stable for discharge home follow up with me in 6 weeks Procedures: Normal spontaneous vaginal delivery Patient Condition at Discharge: Good Plan - Discharge Summary New Discharge Prescriptions: New Ibuprofen [Motrin] 600 mg PO Q6HR PRN #40 tab PRN Reason: Mild Pain (Scale 1 To 3) Acetaminophen Tab [Tylenol] 650 mg PO Q4HR PRN #30 tab PRN Reason: Mild Pain Or Fever >= 100.5 Discharge Medication List Acetaminophen Tab [Tylenol] 650 mg PO Q4HR PRN #30 tab 06/15/23 [Rx] Ibuprofen [Motrin] 600 mg PO Q6HR PRN #40 tab 06/15/23 [Rx] Follow up Appointment(s)/Referral(s): Ammon Kumar MD [STAFF PHYSICIAN] - 07/27/23 2:15 pm Patient Instructions/Handouts: Vaginal Delivery (DC) Activity/Diet/Wound Care/Special Instructions: No intercourse or anything per vagina for 6 weeks. Please call if any fever, chills, excessive vaginal bleeding, and/or abdominal pain Discharge/Stand Alone Forms: Who Do I Call?, Outpatient Counseling Discharge Disposition: HOME SELF-CARE
[2023-06-15 09:38] VITALS: RESP 16
[2023-06-15] MEDS: ACETAMINOPHEN TAB 325 MG TAB PO PRN (14:28)
[2023-06-15 18:22] VITALS: BP 106/64; PULSE 84; TEMP 98.2
== END 2023-06-15 18:00 | disposition home or self-care (01) | DRG 560 ==
LOC: FBPOP 07:08 → 4FBP 07:28
PROVIDERS: ADMIT Obstetrics & Gynecology; ATTEND Obstetrics & Gynecology
PROC: 10E0XZZ Delivery of Products of Conception, External Approach (ICD-10-PCS; principal; 2023-06-13)
PROC: 10907ZC Drainage of Amniotic Fluid, Therapeutic from Products of Conception, Via Natural or Artificial Opening (ICD-10-PCS; 2023-06-13)
DX: O99.824 Streptococcus B carrier state complicating childbirth (principal); F17.210 Nicotine dependence, cigarettes, uncomplicated; F43.10 Post-traumatic stress disorder, unspecified; F31.9 Bipolar disorder, unspecified; F90.9 Attention-deficit hyperactivity disorder, unspecified type; O26.893 Other specified pregnancy related conditions, third trimester; O99.334 Smoking (tobacco) complicating childbirth; O99.344 Other mental disorders complicating childbirth; Z37.0 Single live birth; Z3A.38 38 weeks gestation of pregnancy; Z67.91 Unspecified blood type, Rh negative; Z88.8 Allergy status to other drugs, medicaments and biological substances
CPT/HCPCS: 59025; 80306; 85025; 86850; 86900; 86901; 99213